=== PATIENT | female | born 1945 | race African-American/Black ===

== ENCOUNTER 2018-08-24 10:00 | Inpatient (IN) ==
--- NOTE | 2018-08-24 11:29 | Diag Imaging Result Doc PS360 ---
EXAM: CT HEAD W/O CONTRAST 08/24/2018 HISTORY: CVA rule out TECHNIQUE: This exam was performed using automated exposure control, adjustment of mA or kV according to patient size, and/or use of iterative reconstruction technique. COMMENT: There are patchy lucencies in the subcortical and periventricular white matter of both hemispheres. There is no evidence of mass effect, bleed, or abnormal extra-axial fluid collection. The visualized paranasal sinuses are clear. The calvarium is intact. IMPRESSION: Chronic ischemic microvascular white matter disease. No evidence of acute disease. Electronically signed by Alan Eastman 08/24/2018 11:27 AM
--- NOTE | 2018-08-24 11:40 | Diag Imaging Result Doc PS360 ---
EXAM: CHEST-PORTABLE 08/24/2018 HISTORY: CVA workup TECHNIQUE: AP upright chest at 1125 COMMENT: There is increased platelike atelectasis in the lingula compared to 08/17/2014. The right lung is essentially clear. There continues to be cardiomegaly. IMPRESSION: Lingular atelectasis. Electronically signed by Alan Eastman 08/24/2018 11:37 AM
[2018-08-24 11:49] LABS: BASO# 0.01 X1000 (0.0-0.2); BASO% 0.3 % (0.0-0.8); EOS# 0.13 X1000 (0.0-0.7); EOS% 3.3 % (0.0-10.0); HEMOGLOBIN 13.4 g/dL (12.0-16.0); LYMPH# 0.95 X1000 (1.2-3.4); LYMPH% 23.8 % (20.5-51.1); MCHC 31.2 g/dL (33-37); MCV 96.4 FL (81-99); MONO# 0.24 X1000 (0.11-0.59); MPV 11.5 FL (7.4-10.4); NEUT# 2.67 X1000 (1.4-6.5); NEUT% 66.6 % (42.2-75.2); PLT 99 X1000 (130-400); RBC 4.46 XMIL (4.2-5.4); RDW 14.5 % (11.5-14.5)
[2018-08-24 11:54] LABS: INR 0.94; PROTIME 13.4 Seconds (11.0-16.0)
[2018-08-24 12:02] LABS: URINE SOURCE CATH
[2018-08-24 12:06] LABS: BILIRUBIN URINE NEGATIVE (NEGATIVE); BLOOD URINE MODERATE (NEGATIVE); COLOR YELLOW; GLUCOSE URINE NEGATIVE (NEGATIVE); KETONE URINE NEGATIVE (NEGATIVE); LEUKOCYTES URINE MODERATE (NEGATIVE); NITRITE URINE POSITIVE (NEGATIVE); PROTEIN URINE NEGATIVE (NEGATIVE); SP GRAVITY URINE 1.008; TURBIDITY URINE HAZY (CLEAR); UR EPITHELIAL CELLS >10 /HPF (<10); URINE BACTERIA 4+ /HPF; URINE RBC <10 /HPF (<10); UROBILINOGEN URINE NORMAL (NORMAL)
[2018-08-24 12:09] LABS: ALB/GLOB RATIO 1.2; ALBUMIN 3.5 g/dL (3.5-5.0); CALCIUM 10.1 mg/dL (8.8-10.2); CREATININE 1.1 mg/dL (0.5-0.9); POTASSIUM 3.8 mmol/L (3.5-5.1); TOTAL BILIRUBIN 1.26 mg/dL (0.20-1.00); TOTAL PROTEIN 6.4 g/dL (6.3-8.3)
[2018-08-24] MEDS ORDERED: ROCEPHIN 1 GM in NS 50 ML IV ONE (13:03)
--- NOTE | 2018-08-24 13:41 | PROVIDER DOCUMENTATION ---
This chart was entered by Vani Hooper Scribe, acting as scribe for Candie Lainez MD. HPI-Neurological Disorder - General Chief Complaint: General Adult Stated Complaint: tingling Time Seen by Provider: 08/24/18 10:21 Source: patient, family Allergies/Adverse Reactions: Patient Allergies Allergy/AdvReac Type Severity Reaction Status Date / Time Penicillins Allergy HIVES Verified 08/24/18 10:26 diltiazem HCl * AdvReac RASH Verified 08/24/18 10:26 [From Cardizem] ibuprofen AdvReac ABDOMINAL Verified 08/24/18 10:26 PAIN Home Medications: Home Medication List Medication Instructions Recorded Confirmed Last Taken Type Aspirin 81 mg PO PRN PRN 08/14/14 08/14/14 1 Day Ago History ~02/16/16 Hydrocodone/Acetaminophen [[place] 1 each PO Q4H PRN PRN 08/14/14 08/14/14 08/14/14 13:00 History 10-325 Tablet] Irbesartan 150 mg PO DAILY 08/14/14 08/14/14 02/17/16 History Liothyronine [Cytomel] 50 microgm PO BID 08/14/14 08/14/14 Unknown History Metformin [Glucophage] 500 mg PO BID 08/14/14 08/14/14 02/17/16 History Prednisone 20 mg PO DAILY 08/14/14 08/14/14 1 Day Ago History ~02/16/16 Irbesartan/Hydrochlorothiazide 1 each PO DAILY #30 tablet 02/17/16 Unknown Rx [Irbesartan-Hctz 300-12.5 mg Tb] Sulfamethoxazole/Trimethoprim 1 each PO BID #14 tablet 02/17/16 Unknown Rx [Bactrim Ds Tablet] Nitrofurantoin Monohyd/M-Cryst 100 mg PO BID #20 capsule 03/19/16 Unknown Rx [Macrobid 100 mg Capsule] - History of Present Illness-Neuro Nature of Presenting Problem: 73yof with hx of COPD and diabetes c/o numbness and tingling in lips and tongue that occurred this morning. She reports that it effected both her lips and the R -side of her tongue. She reports this lasted for 20-25 minutes this morning. She reports she has not had an incidence similar to this previously. She denies hx of CVA. She reports her PCP is at [facility]. The patient's daughter reports that she witnessed the patient had "lip drooping" on the R side. Her daughter reports that the patient raised her arms, followed commands, and was oriented x3. She reports that the patient has seemed "confused and disoriented" in the past few days. The patient denied any weakness in any other extremities. The patient's daughter is at bedside. Severity: reports: mild, moderate Onset/Duration: reports: this morning Timing: reports: gone now, intermittent (incident lasted 20-25 minutes) Context: reports: other (numbness and tingling in lips and tongue) Any recent trauma/injury?: reports: none New weakness or altered sensation location:: reports: none Cognitive Baseline: alert, oriented x3 Associated Symptoms: reports: other (numbness and tingling in lips and tongue). denies: fever/chills Similar Symptoms Previously?: No Recently seen or treated by another doctor?: No Review of Systems - Adult - REVIEW OF SYSTEMS - ADULT Constitutional: denies: chills, fever Eyes: denies: discharge, dry eyes Ears, Nose, Mouth & Throat: denies: ear discharge, ear pain Cardiovascular: denies: chest pain, palpitations Respiratory: denies: cough, shortness of breath Gastrointestinal: denies: abdominal pain, diarrhea, nausea, vomiting Genitourinary: denies: dysuria, hematuria Musculoskeletal: denies: back pain, muscle aches, muscle weakness Integumentary: reports: no symptoms reported Neurological: reports: other (numbness/tingling of lips and tongue). denies: dizziness/vertigo, headache/migraines Psychiatric: reports: no symptoms reported Endocrine: reports: no symptoms reported Hematologic/Lymphatic: reports: no symptoms reported Allergic/Immunologic: reports: no symptoms reported All Other Systems: Reviewed and Negative Past History - Adult - PAST MEDICAL HISTORY-ADULT Review of Records: reports: Old Records Reviewed, Nursing Assessment Review, Medications Reviewed Major Childhood Illnesses: reports: denies history Cardiovascular: reports: HTN, other (Enlarged) Respiratory: reports: COPD Gastrointestinal: reports: denies history Obstetrical/Gynecological: reports: denies history Genitourinary: reports: kidney stones Musculoskeletal: reports: denies history Neurological: reports: denies history Endocrine/Immune: reports: anemia, thyroid disorder, other (Sickle Cell trait) Other Conditions: reports: denies history - PRIOR SURGERIES/PROCEDURES Surgical/Procedure History: reports: BTL, , orthopedic (extremity) - IMMUNIZATION STATUS Childhood Immunizations: See Nurse Assessment Flu Vaccine: See Nurse Assessment - FAMILY HISTORY Family History: reviewed, not pertinent - SOCIAL HISTORY Smoking: non-smoker Substance Use: denies Living Situation: family Physical Exam- Neurological - Physical Exam-Neuro Initial Vital Signs Reviewed: Yes General Appearance: alert, no apparent distress Eye Exam: bilateral eye: normal inspection, PERRL, EOMI Head Injury: no evidence of injury. 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 Exam: normal hearing, normal speech, PERRL Motor/Sensory: no motor deficit, no sensory deficit Neurologic: grossly normal, no motor/sensory deficits Integumentary: normal color, warm/dry Psych/Mental Status: normal mood/affect, normal thought content, normal thought process, oriented x 3 - Glascow Coma Scale Best Eye Response: (4) open spontaneously Best Verbal Response: (5) oriented Best Motor Response: (6) obeys commands Total Glascow Score: 15 Progress - PLAN OF CARE/RESULTS Progress/Plan/Lab Results: Vital Signs - 8 hr 08/24/18 10:07 08/24/18 10:10 08/24/18 10:20 Pulse Rate 84 75 111 H Respiratory Rate 14 12 Blood Pressure 151/101 O2 Sat by Pulse Oximetry 91 L 98 99 08/24/18 10:22 08/24/18 10:30 08/24/18 10:33 Pulse Rate 78 75 83 Respiratory Rate 14 Blood Pressure 147/93 136/90 O2 Sat by Pulse Oximetry 98 94 L 87 L 08/24/18 10:40 08/24/18 10:50 08/24/18 11:00 Pulse Rate 98 H 77 82 Respiratory Rate 17 22 Blood Pressure O2 Sat by Pulse Oximetry 93 L 93 L 94 L 08/24/18 11:31 08/24/18 11:40 08/24/18 11:50 Pulse Rate 79 86 82 Respiratory Rate 24 15 25 H Blood Pressure O2 Sat by Pulse Oximetry 90 L 95 92 L 08/24/18 12:00 08/24/18 12:10 08/24/18 12:20 Pulse Rate 82 76 77 Respiratory Rate 16 24 24 Blood Pressure O2 Sat by Pulse Oximetry 91 L 88 L 08/24/18 12:30 Pulse Rate 81 Respiratory Rate 18 Blood Pressure O2 Sat by Pulse Oximetry 91 L Laboratory Results - last 24 hr 08/24/18 08/24/18 08/24/18 11:04 11:04 11:04 WBC 4.00 L RBC 4.46 Hgb 13.4 Hct 43.0 MCV 96.4 MCH 30.0 MCHC 31.2 L RDW Std Deviation 14.5 Plt Count 99 L MPV 11.5 H Immature Gran % (Auto) 0.0 Neut % (Auto) 66.6 Lymph % (Auto) 23.8 [place] % (Auto) 6.0 Eos % (Auto) 3.3 Baso % (Auto) 0.3 Immature Gran # (Auto) 0.00 Neut # (Auto) 2.67 Lymph # (Auto) 0.95 L [place] # (Auto) 0.24 Eos # (Auto) 0.13 Baso # (Auto) 0.01 PT 13.4 INR 0.94 Sodium 141 Potassium 3.8 Chloride 105 Carbon Dioxide 24 L Anion Gap 12 BUN 30 H Creatinine 1.1 H Estimated GFR/1.73 m2 59 BUN/Creatinine Ratio 27 Glucose 167 H Calculated Osmolality 291 Calcium 10.1 Total Bilirubin 1.26 H AST 10 ALT 10 Alkaline Phosphatase 110 H Troponin T Total Protein 6.4 Albumin 3.5 Globulin 2.9 Albumin/Globulin Ratio 1.2 Urine Source Urine Color Urine Turbidity Urine pH Ur Specific Goehner Urine Protein Ur Glucose (Stick) Ur Ketones (Stick) Urine Blood Urine Nitrite Urine Bilirubin Urobilinogen Dipstick Urine Leukocytes Urine WBC (Auto) Urine RBC (Auto) U Epithel Cells (Auto) Urine Bacteria (Auto) 08/24/18 08/24/18 11:04 11:49 WBC RBC Hgb Hct MCV MCH MCHC RDW Std Deviation Plt Count MPV Immature Gran % (Auto) Neut % (Auto) Lymph % (Auto) [place] % (Auto) Eos % (Auto) Baso % (Auto) Immature Gran # (Auto) Neut # (Auto) Lymph # (Auto) Pacific # (Auto) Eos # (Auto) Baso # (Auto) PT INR Sodium Potassium Chloride Carbon Dioxide Anion Gap BUN Creatinine Estimated GFR/1.73 m2 BUN/Creatinine Ratio Glucose Calculated Osmolality Calcium Total Bilirubin AST ALT Alkaline Phosphatase Troponin T < 0.010 Total Protein Albumin Globulin Albumin/Globulin Ratio Urine Source CATH Urine Color YELLOW Urine Turbidity HAZY Urine pH 5.0 Ur Specific Goehner 1.008 Urine Protein NEGATIVE Ur Glucose (Stick) NEGATIVE Ur Ketones (Stick) NEGATIVE Urine Blood MODERATE A Urine Nitrite POSITIVE A Urine Bilirubin NEGATIVE Urobilinogen Dipstick NORMAL Urine Leukocytes MODERATE A Urine WBC (Auto) 10-20 A Urine RBC (Auto) <10 U Epithel Cells (Auto) >10 A Urine Bacteria (Auto) 4+ Orders Category Date Time Status Straight Catheterization ORDERED Care 08/24/18 11:39 Active CHEST-PORTABLE [RAD] Stat Exams 08/24/18 10:[address] HEAD W/O CONTRAST [CT] Stat Exams 08/24/18 10:47 Completed CBC WITH ELECTRONIC DIFF [HEME] Stat Lab 08/24/18 11:04 Completed COMPREHENSIVE METABOLIC PANEL [CHEM] Stat Lab 08/24/18 11:04 Completed PROTIME WITH INR [COAG] Stat Lab 08/24/18 11:04 Completed TROPONIN T Stat Lab 08/24/18 11:04 Completed URINALYSIS W/POSS RFLX CULT [URINALYSIS] Stat Lab 08/24/18 11:49 Completed URINE CULTURE [RM] Routine Lab 08/24/18 12:06 Received CefTRIAXONE [Rocephin] 1 gm Med 08/24/18 13:03 Active 0.9% Sodium Chloride Inj [Ns] 50 ml IV NOW Patient with UTI but normal mental status on exam. Daughter states that she had some facial drooping and all neuro symptoms have resolved, however given UTI and reports of possible TIA like symptoms will admit to OBS. Spoke to Alexis ARAUJO who accepted patient for admission to Dr Vincent. Stable for floor. Result Diagrams: 08/24/18 11:04 08/24/18 11:04 - EKG 1 Time of EKG reading by physician:: 10:16 EKG Read and Signed by:: Candie Lainez EKG Interpretation (*Must complete 3 of following elements*): Abnormal Rate: 76 Rhythm: Normal sinus rhythm Point [place]: normal QRS: LVH ST Wave: non-specific ST changes Comments: Possible Left atrial enlargement, Inferior infarct - XRAY 1 XRAY Study: Chest Impression: Abnormal (COMMENT: There is increased platelike atelectasis in the lingula compared to 08/17/2014. The right lung is essentially clear. There continues to be cardiomegaly. IMPRESSION: Lingular atelectasis.) - CT/MRI 1 CT Study: Head Impression: Abnormal (COMMENT: There are patchy lucencies in the subcortical and periventricular white matter of both hemispheres. There is no evidence of mass effect, bleed, or abnormal extra-axial fluid collection. The visualized paranasal sinuses are clear. The calvarium is intact. IMPRESSION: Chronic ischemic microvascular white matter disease. No evidence of acute disease.) Departure - Departure Date of Disposition Decision: 08/24/18 Time of Disposition Decision: 13:33 DIAGNOSIS: UTI (urinary tract infection), TIA (transient ischemic attack), Confused Disposition: ADMITTED INPATIENT 09 Certified Medical Emergency: Emergent Condition: Stable Referrals and Follow-Ups: Fatuma Johnston MD [Primary Care Provider] - - Critical Care Note This patient required my direct & personal management of CC.: No Attestation - Physician/ ROXANNE Attestation Patient care was provided by Advanced Practice Provider:: No The physician spent face to face time with patient:: Yes Advanced Practice Provider documentation review:: Supervising physician onsite and consulted in the evaluation and care of this patient. The physician did have a face to face encounter with the patient. - NIH Stroke Scale NIH Type: Initial Evaluation Level of Consciousness: 0-Alert LOC Questions (ask month and age): 0-Answers Both Correctly LOC Commands (ask to open & close eyes;make a fist, let go): 0-Obeys Both Correctly Best Gaze (horizontal eye movement): 0-Normal Visual (use finger movement, counting or visual threat): 0-No Visual Loss Facial Palsy (show teeth or raise eyebrows & close eyes tght: 0-Symmetrical Movement Motor Function-left arm: 0-Normal Motor Function-right arm: 0-Normal Motor Function-left le-Normal Motor Function-right le-Normal Limb Ataxia(zpkpos-[id number], or heel to castro): 0-No Ataxia Sensory(pin prick to face,arms,trunk,legs-compare side/side): 0-No Ataxia Best Language(name item/read sentence.Ex-Down to Earth): 0-No Aphasia Dysarthria(Pt read words or say words Ex.Mama,Tip-Top,Thanks: 0-Normal Articulation Extinction and Inattention: 0-Normal NIH Total Score: 0 Modified Opheim Score Criteria: 0-no symptoms This chart was documented by the indicated scribe, (Vani Hooper, Scribe) and accurately reflects the services I performed and decisions made by me, Candie Lainez MD, as attested by the provider's signature.
[2018-08-24 14:45] LABS: FREE T4 1.18 ng/dL (0.93-1.70)
[2018-08-24 14:59] LABS: HEMOGLOBIN A1C 7.8 % (4.8-6.0)
--- NOTE | 2018-08-24 15:01 | HISTORY AND PHYSICAL ---
PRIMARY CARE PHYSICIAN: Fatuma Johnston MD CHIEF COMPLAINT: Facial numbness. HISTORY OF PRESENT ILLNESS: Ms. Camejo is a very pleasant 73-year-old female with a history of type 2 diabetes, hypertension, hyperlipidemia, and asthma, who presents with acute onset of right-sided facial numbness that began this morning. She was in the bathroom bathing, and she had acute onset of what she calls right lip and face tingling. She immediately went to go get her daughter who she lives with, and her daughter called 911. The patient reports that on her way to the ER, the symptoms resolved, and during this time, her daughter noted a very mild right-sided facial droop. At no time were there any other neuro deficits. She denies any changes in her vision, unilateral extremity weakness, confusion. She has chronic shortness of breath but denies any acute dyspnea. Denies any chest pain or nausea or vomiting. In the ER, she had a head CT done which did not show anything acute, chronic changes noted. Her lab data, for the most part, is unremarkable. Currently she has no focal deficits. She will be admitted for observation status. PAST MEDICAL HISTORY: 1. Type 2 diabetes, not requiring insulin. 2. Hypertension. 3. Hyperlipidemia. 4. Sickle cell trait. 5. Questionable congestive heart failure. 6. Morbid obesity. 7. Asthma. 8. History of DVT and PE, status post IVC filter. PAST SURGICAL HISTORY: She has had a section, tubal ligation, knee arthroplasty and hip arthroplasty. SOCIAL HISTORY: She quit smoking around 35 years ago. She is . She lives with her daughter. She denies tobacco, alcohol or drug use. FAMILY HISTORY: Noncontributory. REVIEW OF SYSTEMS: A 14-point review of systems was obtained and found to be negative with the exception of the HPI. ALLERGIES: Penicillin, Cardizem and ibuprofen. HOME MEDICATIONS: She did not bring her medication list. We will try to call her pharmacy. PHYSICAL EXAMINATION: VITAL SIGNS: Blood pressure is 117/93, heart rate is 86, O2 saturation 92% on nasal cannula, temperature not recorded. GENERAL: A morbidly obese female lying in hospital bed in no acute distress. NEUROLOGICAL: Awake, alert and oriented. Follows commands without focal deficit. HEENT: Head is atraumatic and normocephalic. Pupils are equal, round and reactive to light. Oral mucosa is moist. NECK: Trachea is midline. No JVD. CHEST: Clear to auscultation bilaterally. CARDIOVASCULAR: Regular rate and rhythm. There is a 2/6 murmur noted. GASTROINTESTINAL: Soft, nondistended and nontender. Bowel sounds are active. EXTREMITIES: Trace edema. DIAGNOSTIC DATA: Head CT with chronic changes. Chest x-ray with plate-like atelectasis and cardiomegaly. EKG is sinus rhythm with left ventricular hypertrophy. WBC is 4, hemoglobin 13.4, hematocrit 43, platelet count 99. INR is 0.94. Sodium is 141, potassium 3.8, chloride 105, CO2 is 24, anion gap is 12, BUN is 30, creatinine 1.1, glucose 167, calcium 10.1. Total bilirubin is 1.26, AST is 10, ALT is 10, alkaline phosphatase 110. Troponin negative. ProBNP is 37. Albumin 3.5. UA shows nitrite positive UTI. ASSESSMENT AND PLAN: 1. Transient ischemic attack. The patient currently has no symptoms. They have all resolved, but she has multiple risk factors for cerebrovascular disease. We will check an echocardiogram and carotid ultrasound, trend cardiac enzymes, and consider MRI in the morning. We will make sure she is on aspirin and statin. Check a lipid panel, hemoglobin A1c, and encourage lifestyle modification. 2. Chronic cough. The patient has a history of asthma and has coughing almost every day. She denies any mucopurulent sputum at present but does cough quite a bit on a daily basis. Given the atelectasis, chronic cough and LVH, we will go ahead and check a CT of the chest without contrast for better evaluation of her lungs and echocardiogram as well. There is also likely a component of obesity hypoventilation syndrome or possibly even pulmonary hypertension/diastolic dysfunction, however, will need an echocardiogram to evaluate pulmonary pressures. We will continue breathing treatments and incentive spirometry. She may need Pulmonary consultation which could possibly be done on an outpatient basis. 3. Urinary tract infection. The patient does report some dysuria, so we will start her on Rocephin. Cultures are pending. 4. Diabetes mellitus. We will add pattern sugars, sliding scale insulin and check a hemoglobin A1c. 5. Renal insufficiency. Likely chronic. We do not have a creatinine since 2016 but will continue to watch her creatinine on a daily basis and be cautious with any nephrotoxins. 6. Thrombocytopenia. Unclear as to the significance. It would appear that she has a history of thrombocytopenia going back as far as 2014. We will check iron studies and thyroid function. 7. History of DVT and PE. Aware. Kal filter is in place. 8. DVT prophylaxis with Lovenox. Further recommendations to follow. Dictated by GAYLE Parekh for Yenni Bedolla MD cc: GAYLE Parekh MD
[2018-08-24 15:04] LABS: TSH 10.3 uIUmL (0.27-4.20)
[2018-08-24 15:08] LABS: IRON SATURATION 27 %; TIBC 235 ug/dL; TOTAL IRON 64 ug/dL (49-151); UNBOUND IRON 171 ug/dL (112-346)
--- NOTE | 2018-08-24 15:23 | Diag Imaging Result Doc PS360 ---
EXAM: CT THORAX W/O CONTRAST 08/24/2018 HISTORY: chronic cough TECHNIQUE: This exam was performed using automated exposure control, adjustment of mA or kV according to patient size, and/or use of iterative reconstruction technique. COMMENT: There are no previous studies available for comparison. There is no evidence of significant adenopathy or abnormal fluid collections. There is a large cyst in the upper pole of the right kidney. There are some linear opacities in both lung bases consistent with atelectasis versus fibrosis. There is a 6 mm nodule in the right lower lobe which is not clearly calcified. This is on image 54. There is some mild bronchiectasis in the right lower lobe. There is also bronchiectasis in the medial segment of the right middle lobe. There is an ill-defined pleural based opacity present in the right upper lobe on image 36. There is a tiny nodule adjacent to the pleura in the left upper lobe on image 27. There is platelike opacity in the lingula consistent with atelectasis. There are degenerative disc changes throughout the thoracic spine. IMPRESSION: Atelectasis particularly in the lingula. Mild bronchiectasis. Nonspecific pulmonary nodules. Electronically signed by Alan Eastman 08/24/2018 3:20 PM
[2018-08-24] MEDS: HUMULIN R SUBQ SCH ×2 (16:00→23:04)
[2018-08-24] MEDS: QUESTRAN PO SCH (16:00)
[2018-08-24] MEDS: ASPIRIN PO SCH (16:30)
[2018-08-24] MEDS: LOVENOX SUBQ SCH (16:30)
[2018-08-24] MEDS ORDERED: ZOFRAN IV PRN (23:36)
[2018-08-25] MEDS: SINGULAIR PO SCH ×2 (00:17→23:40)
[2018-08-25] MEDS: NORCO-7.5 PO PRN ×3 (00:17→19:43)
[2018-08-25] MEDS: CYTOMEL PO ONE ×2 (00:18→00:25)
[2018-08-25] MEDS: CYTOMEL PO SCH ×2 (02:15→08:55)
[2018-08-25 07:36] LABS: HEMATOCRIT 39.4 % (37.0-47.0); HEMOGLOBIN 12.4 g/dL (12.0-16.0); MCH 30.7 PG (27-31); MCHC 31.5 g/dL (33-37); MCV 97.5 FL (81-99); MPV 11.7 FL (7.4-10.4); RBC 4.04 XMIL (4.2-5.4); RDW 14.3 % (11.5-14.5); WBC 3.54 X1000 (4.8-10.8)
[2018-08-25 07:43] LABS: CALCIUM 10.5 mg/dL (8.8-10.2); CREATININE 1.1 mg/dL (0.5-0.9); POTASSIUM 3.8 mmol/L (3.5-5.1)
[2018-08-25] MEDS: HUMULIN R SUBQ SCH ×4 (08:06→23:40)
[2018-08-25 08:40] LABS: FERRITIN 1809 ng/mL (13-150)
[2018-08-25] MEDS: ASPIRIN PO SCH (08:53)
[2018-08-25] MEDS: PREDNISONE PO SCH (08:53)
[2018-08-25] MEDS: QUESTRAN PO SCH ×3 (09:13→15:45)
--- NOTE | 2018-08-25 10:15 | EKG Report ---
Test Performed on : 08/24/2018 10:11:26 AM Test Reason : ED. No order in [place] Blood Pressure : / mmHG Vent. Rate : 076 BPM Atrial Rate : 076 BPM P-R Int : 164 ms QRS Dur : 084 ms QT Int : 410 ms P-R-T Axes : 037 -07 048 degrees QTc Int : 461 ms Normal sinus rhythm. Possible Left atrial enlargement Left ventricular hypertrophy Inferior infarct , age undetermined Abnormal ECG When compared with ECG of 16-AUG-2014 05:19, Inferior infarct is now present Unconfirmed Result
[2018-08-25] MEDS: LOVENOX SUBQ SCH (15:42)
[2018-08-25] MEDS: ROCEPHIN 1 GM in NS 50 ML IV SCH (15:42)
--- NOTE | 2018-08-25 16:04 | Diag Imaging Result Doc PS360 ---
EXAM: MRI BRAIN W/O CONTRAST 08/25/2018 HISTORY: stroke like symptoms TECHNIQUE: T1 sagittal, axial, T2, FLAIR, DWI axial and coronal gradient echo. COMMENT: There is considerable motion artifact. There is extensive abnormal T2 weighted signal intensity in the periventricular white matter of both hemispheres. There is no evidence of bleed or abnormal extra-axial fluid collection. There are several punctate areas of increased DWI signal intensity in the left hemisphere which may be small lacunar lesions. It is possible these are artifacts however. No larger areas of restricted diffusion are present. There is no evidence of mass. IMPRESSION: Questionable punctate areas of restricted diffusion. Otherwise no evidence of acute disease. Electronically signed by Alan Eastman 08/25/2018 4:02 PM
--- NOTE | 2018-08-25 19:10 | PROGRESS NOTE ---
DATE: 08/25/2018 SUBJECTIVE: The patient is awake and alert. She states that she feels a lot better today than she did yesterday. OBJECTIVE: Vital Signs: Temperature 98.1 degrees, blood pressure 140/93, heart rate 78, respirations 22, O2 saturation 95% on room air. General: This is an elderly female sitting in a wheelchair in no acute distress. Heart: S1, S2 normal. Regular rate and rhythm. Lungs: Clear to auscultation bilaterally. Abdomen: Positive bowel sounds. Soft, nontender, nondistended. Extremities: No edema, no cyanosis. Neuro: The patient is alert and oriented x4. No focal neurologic deficits noted. LABS: White blood cell count 3.5, hemoglobin 12, hematocrit 39, platelets 97,000, sodium 143, potassium 3.8, chloride 106, CO2 27, BUN 24, creatinine 1.1, glucose 169, calcium 10.5. ASSESSMENT AND PLAN: 1. Metabolic encephalopathy. The patient had an MRI of the brain today that revealed a possible stroke. Will continue with aspirin. Will also add Lipitor. Will await the results of the carotid duplex study. Will also consult with Neurology. 2. Urinary tract infection. The urine culture is growing 2 different organisms, will await the results. In the meantime will continue on Rocephin. 3. Thrombocytopenia. Will discontinue the Lovenox. Will also order a HIT antibody assay. Will consult with the chief nurse executive. 4. Hypothyroidism. Continue on Cytomel. 5. Diabetes mellitus type 2. Continue on sliding scale insulin. 6. Urinary retention. The patient reports that she has frequent urinary tract infections and she uses a diaper at home. Will consult with the urologist for further treatment options. 7. Disposition. The patient reports that she is wheelchair bound and is able to transfer on her own. The patient states that she utilizes home health services. cc: Yenni Bedolla MD
[2018-08-25] MEDS ORDERED: PATIENT'S OWN MED PO SCH (21:00)
[2018-08-25] MEDS ORDERED: CYTOMEL PO SCH (21:00)
[2018-08-25] MEDS: LIPITOR PO SCH (23:40)
[2018-08-26] MEDS: HUMULIN R SUBQ SCH ×4 (06:48→21:55)
[2018-08-26 06:58] LABS: HEMATOCRIT 37.9 % (37.0-47.0); HEMOGLOBIN 11.9 g/dL (12.0-16.0); MCH 30.3 PG (27-31); MCHC 31.4 g/dL (33-37); MCV 96.4 FL (81-99); MPV 11.5 FL (7.4-10.4); RBC 3.93 XMIL (4.2-5.4); RDW 14.1 % (11.5-14.5); WBC 3.51 X1000 (4.8-10.8)
[2018-08-26] MEDS: QUESTRAN PO SCH ×3 (06:59→16:55)
[2018-08-26 07:25] LABS: AGAP 10; BUN 23 mg/dL (8-22); CHLORIDE 105 mmol/L (98-107); COSMO 285; CREATININE 0.9 mg/dL (0.5-0.9); ESTIMATED GFR > 60; GLUCOSE 97 mg/dL (70-104); POTASSIUM 3.8 mmol/L (3.5-5.1); SODIUM 141 mmol/L (136-145); TCO2 26 mmol/L (25-35)
[2018-08-26] MEDS: NORCO-7.5 PO PRN ×2 (09:17→15:58)
[2018-08-26] MEDS: PREDNISONE PO SCH (09:17)
[2018-08-26] MEDS: ASPIRIN PO SCH (09:18)
[2018-08-26] MEDS: CYTOMEL PO SCH ×2 (09:20→21:54)
--- NOTE | 2018-08-26 11:14 | Carotid Study ---
DATE: 08/24/2018 PROCEDURE: Carotid duplex imaging. REFERRING PHYSICIAN: Dr. Bedolla INTERPRETING PHYSICIAN: Dr. Green TECH: Xu INDICATIONS: Stroke-like symptoms. EQUIPMENT: [employer] E9 ultrasound system with a 9LD transducer. OBSERVED DATA RIGHT LEFT Brachial Blood Pressure Carotid Pulse Bruits: Carotid/Sub DIAGRAM OF ULTRASOUND IMAGING R L RIGHT INT EXT INT EXT LEFT Jake (cm/s) Jake (cm/s) Subclavian 115/0 Subclavian 94/0 CCA Proximal 54/11 CCA Proximal 67/11 CCA Distal 46/11 CCA Distal 63/10 Bulb 42/11 Bulb 45/9 ICA Proximal 32/8 ICA Proximal 36/8 ICA Mid 37/16 ICA Mid 40/13 ICA Distal 41/10 ICA Distal 55/21 ECA 53/8 ECA 45/8 Vertebral 117/4 A Vertebral 33/11 A ICA/CCA Ratio 0.76 ICA/CCA Ratio 0.82 % Stenosis 0 to 39 % Stenosis 0 to 39 FINDINGS: A technically difficult study secondary to thick neck and the patient having coughing attacks throughout the entirety of this study, but there is minimal atherosclerosis visualized on the study without hemodynamically significant flow limiting stenosis. Both vertebral arteries are antegrade flow. PHYSICIAN INTERPRETATION: Technically difficult study but no obvious hemodynamically significant flow limiting stenosis. The patient may need to be monitored and have a repeat study in a short interval given the difficulty of this study. cc: MD Telly Marvin CRNP
--- NOTE | 2018-08-26 12:04 | HEMO/ONC CONSULTATION ---
DATE: 08/26/2018 CHIEF COMPLAINT: We are being consulted for further management and evaluation of the patient's thrombocytopenia. HISTORY OF PRESENT ILLNESS: The patient is a 73-year-old female who presented to the emergency department with acute onset of right-sided facial numbness and tingling that began on the morning of August 24. The patient's daughter states that she did have some right-sided facial droop as well. By the time that the patient got to the emergency department, symptoms had all resolved. No other focal neurological deficits were noted. The patient denied any chest pain, nausea, vomiting. PAST MEDICAL HISTORY: Type 2 diabetes mellitus, hypertension, hyperlipidemia, sickle cell trait, questionable congestive heart failure, morbid obesity, asthma, history of DVT and PE, status post IVC filter. PAST SURGICAL HISTORY: section, tubal ligation, knee arthroplasty, and hip arthroplasty. SOCIAL HISTORY: Quit smoking around 35 years ago. Denies any tobacco or illicit drug use now. FAMILY HISTORY: Noncontributory. ALLERGIES: Penicillin, Cardizem, ibuprofen. HOME MEDICATIONS: Ventolin HFA, aspirin, Celebrex, cholestyramine, Advair Diskus, Lasix, [place] 10s, irbesartan, hydrochlorothiazide, Cytomel, Glucophage, Singulair, and prednisone. REVIEW OF SYSTEMS: Negative unless mentioned in the HPI. PHYSICAL EXAMINATION: Vital Signs: Temperature of 98.6, pulse of 85, respiratory rate 18, blood pressure 130/83, saturating 93% on room air. General: Patient is awake, lying in bed. No acute distress noted. HEENT: Anicteric. Pupils PERRLA. Mucous membranes appear to be moist. Neck: Supple. Trachea midline. No JVD noted. Lymph Node Survey: No palpable lymphadenopathy. Cardiovascular: S1, S2. Regular rate and rhythm. Lungs: Bilateral breath sounds clear to auscultation. Abdomen: Soft, nontender. Bowel sounds present in all 4 quadrants. Neurologic: Alert and oriented x3. No focal deficits noted. LABORATORY DATA: White cell count is 3.51, hemoglobin 11.9, hematocrit 37.9, platelets are 104,000. Potassium 3.8, BUN 23, creatinine 0.9. RADIOLOGY RESULTS: Chest CT, atelectasis, particularly lingula, mild bronchiectasis, and some pulmonary nodules. Brain MRI, questionable punctuate areas of restricted diffusion. No other acute disease noted. ASSESSMENT AND PLAN: 1. 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 Further lab work has been ordered. Heparin-induced thrombocytopenia antibody is pending. Continue to monitor closely. Transfuse for any clinical signs of bleeding. 2. Metabolic encephalopathy: Continue recommendations per primary medical team and neurology. 3. Urinary tract infection: Continue recommendations per primary medical team. Continue Rocephin. 4. Hypothyroidism. 5. Diabetes mellitus type 2. 6. Deep venous thrombosis prophylaxis: Continue to have the patient get out of bed as much as possible. Lovenox is going to be discontinued. Dictated by GAYLE Rodriguez for Jaswinder Swan MD Patient seen and examined. Patient presented with facial droop that resolved spontaneously. At presentation she had thrombocytopenia. This is a little bit better since admission. It is not clear to me at this time if this is chronic thrombocytopenia. We will review her labs and peripheral smear. ITP is suspected. 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 Hodges with Aranesp. She has not required Aranesp in many years. She in fact has not followed up with them in a while. Jaswinder Swan M.D. cc: GAYLE Rodriguez MD [facility]
[2018-08-26] MEDS: ROCEPHIN 1 GM in NS 50 ML IV SCH (14:00)
--- NOTE | 2018-08-26 14:00 | ECHO REPORT ---
ORDER DATE: 08/24/2018 INDICATION FOR THE PROCEDURE: Stroke, history of DVT and PE. FINDINGS: 1. The right atrium appears normal in size. 2. Mild tricuspid regurgitation. RV systolic pressure of 47. 3. Normal RV size and systolic function. 4. Trace pulmonic insufficiency. 5. Normal left atrial size with a dimension of 3.8 cm. 6. No mitral valve prolapse. Mild mitral regurgitation. 7. Normal LV size, end-diastolic dimension of 4.1. Mild left ventricular hypertrophy with a posterior and interventricular septal wall thickness 1.2 cm each. Normal LV systolic function with an estimated EF of 65 to 70 percent with normal wall motion. 8. Aortic valve opens well. No evidence of stenosis or insufficiency. The aortic valve does appear sclerotic but there does not appear to be a significant degree of restriction in motion. 9. Aorta appears normal in visualized segments. 10. No pericardial effusion seen. cc: MD Telly Boswell CRNP
--- NOTE | 2018-08-26 15:54 | CONSULTATION ---
DATE OF CONSULTATION: 08/26/2018 REASON FOR CONSULTATION: Question stroke. HISTORY OF PRESENT ILLNESS: This is a 73-year-old ambidextrous black female with diabetes, hypertension, hyperlipidemia, who was admitted 2 days ago with stroke-like symptoms. History is from the patient. She reports feeling well leading up to the event. She had sudden onset of numbness involving the right side of her tongue, lips, and possibly the lower face. An asleep sensation. Daughter reported right-sided facial drooping that was mild. The patient also reports some changes of vision out of the right eye. She describes this as a hazy sense but not completely black. There were no other neurologic symptoms. No headache. No speech changes. No dizziness. No presyncopal symptoms. No focal extremity weakness or numbness. The symptoms resolved after approximately 10 or 15 minutes. She has never had episodes like this before. She denies personally history of stroke or seizure. Head CT on arrival did not show acute findings. There were typical chronic ischemic microvascular white matter changes. MRI yesterday showed questionable punctate areas of restricted diffusion within the left hemisphere. She has not had recurrence of symptoms during her stay. The patient is being treated for E. coli UTI. She is also being worked up for thrombocytopenia. PAST MEDICAL HISTORY: Hypertension, hyperlipidemia, diabetes, reports congestive heart failure, obesity, asthma, sickle cell trait, history of DVT and PE status post IVC filter. SOCIAL HISTORY: She is a former smoker, quit about 35 years ago. She denies alcohol and illicits. She is and her daughter lives with her. She is a retired teacher. FAMILY HISTORY: No strokes or seizures. ALLERGIES: Listed to ibuprofen, diltiazem, and penicillin. HOME MEDICATIONS: The patient reports that she rarely takes an aspirin as needed. CURRENT MEDICATIONS: Include aspirin 325 mg daily, Lipitor 40 mg daily, ceftriaxone for UTI, insulin. REVIEW OF SYSTEMS: A balance of 12 was conducted and is otherwise negative except that detailed in the HPI. PHYSICAL EXAMINATION: Vital signs: Afebrile, blood pressure 151/101 admission, current 135/76, pulse 60s-80s, respirations 18, 93% on room air. Ms. Camejo is sitting up in bed, awake, alert, no acute distress. She is oriented. She is cooperative and attentive, follows simple and complex commands. Left and right digit distinction preserved. No dysarthria. No language disturbance. Pupils equal, round, and reactive. Gaze conjugate. Extraocular movements are full. Visual oleary intact to direct confrontation on all testing. She can hear. Face symmetric with equal activation. Facial sensation reported intact. Tongue is midline. Palate elevates symmetrically. Shoulder shrug is full. Motor exam: There is subtle pronation of the right arm as they are extended. Tone is equal in the limbs. Strength is preserved and symmetric in the arms and legs. She reports preserved sensation that is symmetric in the arms and legs. Rapid alternating movements and [id number] intact. Reflexes are diminished diffusely, symmetric 1+ at the biceps bilaterally. She deferred testing of the knees. No clonus. Plantar response is silent. I did not test her gait. DIAGNOSTICS: White count 3.5, platelets 104,000 and trending up. Sodium normal, BUN 23, creatinine 0.9, blood sugar is 97 to mid 200s, A1c 7.8. Triglycerides 183, cholesterol 133, LDL 72, HDL 44. Head CT showed chronic changes, no acute findings. MRI of the brain was personally reviewed showing questionable punctate areas of restricted diffusion within the left hemisphere. There is also extensive T2 signal intensity in the periventricular white matter bilaterally. Carotid Doppler 0-39% bilaterally. Echocardiogram without mention of obvious thrombus. ASSESSMENT AND PLAN: Transient right-sided facial numbness and potentially a field cut lasting approximately 10-15 minutes with complete resolution. I suspect the very subtle punctate areas of restricted diffusion seen on imaging are real and indicative of stroke as they do correlate with symptoms. I agree with the stroke workup that has been done. She reports that she does not take aspirin regularly and only takes it rarely; therefore, I would recommend just a low-dose aspirin for her as long there are no contraindications. Aggressive blood sugar management. Agree with statin therapy. Continue telemetry monitoring. Thank you for the consultation. cc: Cass Noguera MD [facility]
[2018-08-26] MEDS: FOLIC ACID PO SCH (16:04)
[2018-08-26] MEDS: PRIMAXIN 500 MG in NS 100 ML IV SCH (16:05)
--- NOTE | 2018-08-26 16:10 | PROGRESS NOTE ---
DATE: 08/26/2018 SUBJECTIVE: The patient resting in bed. OBJECTIVE: Vital signs: Temperature 98.7 degrees, pulse 83, respirations 16, blood pressure is 134/76, oxygen saturation is 93%. HEENT: Atraumatic, normocephalic. Cardiovascular system: S1, S2. Respiratory system: Has evidence of good air entry bilaterally. Abdomen: Soft, nontender. No masses felt. Extremities: No evidence of edema. Central nervous system: No obvious focal deficits noted. LABORATORY DATA: WBC is 3.5, hematocrit is 37.9 with a platelet count of 104. Sodium is 141, potassium 3.8, chloride is 105, bicarbonate 26,creatinine 0.9. ASSESSMENT: 1. Possible cerebrovascular accident (CVA). Continue aspirin as well as statin. Recommend PT. Neurology consulted. 2. Urinary tract infection. Adjust antibiotics based on culture and sensitivity report. 3. Thrombocytopenia. Lovenox discontinued. HIT antibody assay ordered. 4. Hypothyroidism. Continue Cytomel. 5. Diabetes mellitus. Continue blood sugar monitoring as well as sliding scale insulin. DISPOSITION: Consult Medical Voucher Clerk for rehabilitation placement. cc: Tonio Terry MD MTDD
[2018-08-26] MEDS: LIPITOR PO SCH (21:54)
[2018-08-26] MEDS: SINGULAIR PO SCH (21:55)
--- NOTE | 2018-08-26 22:09 | CONSULTATION ---
DATE OF CONSULTATION: 08/26/2018 CHIEF COMPLAINT: Urinary frequency and recently diagnosed urinary tract infection. HISTORY OF PRESENT ILLNESS: Ms. Camejo is a 73-year-old female with type 2 diabetes, hypertension, hyperlipidemia, asthma, rheumatoid arthritis and osteoarthritis who initially presented to the emergency room on 08/24/2018 with right-sided facial numbness and tingling with concern for stroke versus TIA. The patient had a CT of the head, which was negative, and her neurologic deficits seemed to improve. The patient was admitted to the hospital for monitoring, and urology was consulted for further recommendations regarding urinary retention and frequency. In talking to the patient, she describes a long history of urinary incontinence starting approximately 20+ years ago. 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 This has progressively worsened, and now she wears multiple diapers a day. She says her most prominent symptom is urinary frequency, stating that she needs to go to the bathroom and just goes into her diaper. The patient states that she has no warning that she needs to go to the bathroom. She states she has a long history of urinary tract infections and has a positive urine culture on admission to the hospital, growing ESBL E coli. The patient denies any hematuria or dysuria. She denies any leakage with cough or sneeze. Denies any procedures on her bladder or urethra previously. Denies any vaginal bulges or perineal pain. PAST MEDICAL HISTORY: 1. Type 2 diabetes. 2. Hypertension. 3. Hyperlipidemia. 4. Sickle cell trait. 5. Morbid obesity. 6. Asthma. 7. History of DVT and pulmonary embolism with an IVC filter. 8. Rheumatoid arthritis. 9. Osteoarthritis. PAST SURGICAL HISTORY: 1. section. 2. Tubal ligation. 3. Knee arthroplasty and hip arthroplasty. ALLERGIES: 1. Penicillin. 2. Ibuprofen. 3. Diltiazem. FAMILY HISTORY: Denies family history of malignancy. SOCIAL HISTORY: Quit smoking approximately 35 years ago. She lives with her daughter. Denies tobacco, alcohol, or illicit drug use. MEDICATION: 1. Ventolin. 2. Aspirin. 3. Celebrex. 4. Cholestyramine. 5. Advair. 6. Lasix. 7. [place]. 8. Irbesartan. 9. Hydrochlorothiazide. 10. Cytomel. 11. Glucophage. 12. Singulair. 13. Prednisone. REVIEW OF SYSTEMS: Twelve-point review of systems performed. All pertinent positives and negatives in HPI. PHYSICAL EXAMINATION: Vital Signs: Temperature 98.7 degrees, heart rate 85, blood pressure 140/85, oxygen saturation 93% on room air. General: No acute distress. Resting comfortably in bed, alert and oriented x3. HEENT: Normocephalic, atraumatic. Pupils equal, round and reactive to light. Normal mucosa with good dentition. Neck: Trachea midline without obvious deformity. Respiratory: Good respiratory effort without audible wheezing or rales. Cardiovascular: Lower extremity edema, 1+ pulses bilaterally. Abdomen: Soft, nontender, nondistended. No palpable masses or hepatosplenomegaly. Obesity present. Genitourinary: No suprapubic tenderness. No CVA tenderness. Musculoskeletal: Lower extremity edema. Able to move all extremities. Skin: No obvious skin lesions or rashes. Neurologic: Gross motor and sensory intact. No obvious neurologic deficits. LABORATORY DATA: White blood cell count 3.5, hemoglobin 11.9, hematocrit 37.9, platelets 104,000. Sodium 140, potassium 3.8, chloride 105, bicarb 26, BUN 23, creatinine 0.6, glucose 292. MICROBIOLOGY: Urine culture 08/24/2018 growing ESBL E coli sensitive to amikacin, imipenem, Bactrim and Macrobid. ASSESSMENT AND PLAN: Ms. Camejo is a 73-year-old with type 2 diabetes, hypertension, hyperlipidemia, asthma, rheumatoid arthritis, osteoarthritis, morbid obesity who presents in consultation regarding urinary frequency and incontinence. Hearing the patient talk, she seems to have had a long history of urinary incontinence occurring more than 20 years ago. She states that she was watching the television recently and told her that there was a medication that can help with incontinence, and she asked for treatment options. In talking with patient, it does not seem like she is has ever taken any medications for her bladder previously. She has previously been told that she holds onto a lot of urine, which could be leading to urinary tract infection. Overall she seems to be improving, but does have some pancytopenia with low white blood cell count and thrombocytopenia. The patient has been evaluated by Hematology/Oncology. Recommend continued IV antibiotics and tailor to her culture data. The patient does have extended spectrum beta- lactamase on her culture. Recommend obtaining renal ultrasound to assess for kidney stones and hydronephrosis in light of her urinary tract infection. If has low post void residual, would consider anticholinergics. We will continue to monitor. Please call with questions or concerns. cc: Vic Renee MD MTDD
[2018-08-27] MEDS: PRIMAXIN 500 MG in NS 100 ML IV SCH ×3 (01:36→18:05)
[2018-08-27] MEDS: HUMULIN R SUBQ SCH ×4 (06:35→23:59)
[2018-08-27 06:44] LABS: AGAP 10; BUN 23 mg/dL (8-22); CALCIUM 10.8 mg/dL (8.8-10.2); CHLORIDE 106 mmol/L (98-107); COSMO 286; CREATININE 0.8 mg/dL (0.5-0.9); ESTIMATED GFR > 60; GLUCOSE 82 mg/dL (70-104); POTASSIUM 4.1 mmol/L (3.5-5.1); SODIUM 142 mmol/L (136-145); TCO2 26 mmol/L (25-35)
[2018-08-27 06:54] LABS: HEMATOCRIT 37.3 % (37.0-47.0); HEMOGLOBIN 11.9 g/dL (12.0-16.0); MCH 30.7 PG (27-31); MCHC 31.9 g/dL (33-37); MCV 96.1 FL (81-99); MPV 11.2 FL (7.4-10.4); RBC 3.88 XMIL (4.2-5.4); WBC 4.1 X1000 (4.8-10.8)
--- NOTE | 2018-08-27 07:49 | PROGRESS NOTE ---
DATE: 08/27/2018 SUBJECTIVE: No acute events overnight. The patient is resting comfortably in bed. Alert and orient x3. She remains afebrile with stable vital signs. Bladder scan performed yesterday which showed approximately 85 mL in her bladder. The patient denies any issues with urination. No dysuria, hematuria, stable urgency and frequency. She has been voiding into her diaper. The patient was transitioned to imipenem yesterday relating to her positive urine culture with ESBL E. coli. OBJECTIVE: Vital Signs: Temperature 98.2, heart rate 69, blood pressure 150/90, oxygen saturation 95% on room air. General: No acute distress. Resting comfortably in bed. Alert and oriented x3. Respiratory: Good respiratory effort without audible wheezing or rales. Abdomen: Soft, nontender, nondistended. : No suprapubic tenderness. No CVA tenderness. Musculoskeletal: Moving all extremities, though they were slightly limited due to her arthritis. Labs: White blood cell count 4.1, hemoglobin 11.9, hematocrit 37.3, and platelets 96,000. Sodium 142, potassium 4.1, chloride 106, bicarb 26, BUN 23, creatinine 0.8, glucose 92. ASSESSMENT AND PLAN: Ms. Camejo is a 73-year-old, -[place] female with type 2 diabetes, hypertension, hyperlipidemia, asthma, rheumatoid arthritis, osteoarthritis, sickle cell trait, and morbid obesity who presented as a consult regarding urinary frequency and urgency. Overall, it sounds like the patient has been doing well since admission and has dealt with her urgency and frequency for a long time now. She was diagnosed with a urinary tract infection but denies prior urinary tract infections. Due to her extended-spectrum B-lactamase, I recommended obtaining a renal ultrasound to ensure she has no hydronephrosis or renal stones. The patient currently denies any costovertebral tenderness or suprapubic tenderness. If imaging is negative, I would recommend trying her on trospium to help with her frequency of urination. I told her that this is a quaternary molecule and has less likelihood to cause confusion and falls in the elderly. She still may be at risk for dry mouth and constipation. Currently, the patient deals with significant diarrhea. I told her that this can take many weeks to reach full effect and I encouraged her to continue to take it until she is seen back in the office for followup. If ultrasound is positive, would recommend management of those findings. However, if she continues to do well, could be managed outpatient for her frequency of urination. I told her also that urinary tract infections can lead to worsening of frequency of urination. However, it sounds like her symptoms have been relatively stable and longstanding. We will continue to monitor. Please call with questions or concerns. cc: Vic Renee MD MTDD
[2018-08-27] MEDS: PREDNISONE PO SCH (08:07)
[2018-08-27] MEDS: ASPIRIN PO SCH (08:07)
[2018-08-27] MEDS: FOLIC ACID PO SCH (08:08)
[2018-08-27] MEDS: CYTOMEL PO SCH ×2 (08:09→21:17)
[2018-08-27] MEDS: QUESTRAN PO SCH ×3 (08:10→18:07)
[2018-08-27] MEDS: NORCO-7.5 PO PRN ×2 (08:17→14:59)
--- NOTE | 2018-08-27 08:48 | HEMO/ONC PROGRESS NOTE ---
DATE: 08/27/2018 SUBJECTIVE: The patient continues to feel well at this time. The patient denies any complaints at this time. OBJECTIVE: Vital Signs: Temperature 98.2 degrees, heart rate 69, respiratory rate 18, blood pressure 171/90, sat 94% on room air. General: The patient is awake, lying in bed. No acute distress noted. HEENT: Anicteric. Pupils PERRLA. Mucous membranes moist. Cardiovascular: S1, S2. Regular rate and rhythm. Chest: Bilateral breath sounds. Clear to auscultation. Abdomen: Soft, nontender. Bowel sounds are present in all 4 quadrants. Neurologic: Alert and oriented x3. No focal deficits noted. LABORATORY DATA: White blood cell count 4.1, hemoglobin 9.9, hematocrit 37.3, platelets 96,000. Potassium 4.1, BUN 23, creatinine 0.8. ASSESSMENT AND PLAN: 1. Thrombocytopenia: Lab work pending at this time. May be chronic idiopathic thrombocytopenic purpura. Continue to monitor closely. Platelet counts continue to be stable. Transfuse for any signs of bleeding or for platelets less than 20,000. 2. Urinary tract infection: Continue antibiotics as ordered per primary medical team. 3. Deep vein thrombosis prophylaxis: Continue sequential compression devices. Continue to have the patient get up as much as possible. Dictated by GAYLE Rodriguez for Jaswinder Swan MD Patient seen and examined. Platelet count is relatively stable. This may be chronic ITP. For now we will plan to follow up outpatient. We will sign off. Please call with any questions Jaswinder Swan M.D. cc: GAYLE Rodriguez MD [facility]
--- NOTE | 2018-08-27 12:38 | PROGRESS NOTE ---
DATE: 08/27/2018 SUBJECTIVE: Ms. Camejo reports no further neurologic symptom. The transient right facial symptoms and vision disturbance prompting this admission resolved in 15 minutes and have not recurred. 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 That makes her wonder if recent episode might have been a "mild attack of Armstrong's palsy." OBJECTIVE: Systolic blood pressures have been 110s to 170s. I reviewed the MRI findings. Carotid ultrasound was technically difficult but did not show definite significant stenosis bilaterally. PLAN: I would continue aspirin, continue statin, continue treating blood sugar aggressively, treat blood pressure, consider repeat carotid imaging electively. I told her that whether this was Armstrong's palsy, other viral syndrome or ischemic episode such as TIA, with her stable course and negative workup to this point, I do not have any urgent suggestion. Thanks for asking Neurology to see Ms. Camejo. cc: MD LISHA Olivares III
--- NOTE | 2018-08-27 14:22 | PROGRESS NOTE ---
DATE: 08/27/2018 SUBJECTIVE: Patient is resting in bed. Not in any obvious distress. OBJECTIVE: Vital Signs: Temperature 98.1 degrees, pulse 83, respiratory rate 16, blood pressure is 153/86, oxygen saturation is 95%. HEENT: Atraumatic and normocephalic. Cardiovascular System: S1 and S2. Respiratory System: Has evidence of good entry bilaterally. Abdomen: Soft, nontender. No masses felt. Extremities: No evidence of edema. Central Nervous System: No obvious focal deficit noted. Labs: WBCs 4.1, hematocrit is 37.3, with a platelet count of 96,000. Sodium is 142, potassium is 4.1, chloride is 107, bicarb 26, BUN is 23, creatinine 0.8. ASSESSMENT AND PLAN: 1. Possible cerebrovascular accident. Continue aspirin as well as a statin. Physical therapy recommended. Neurology is following. 2. Urinary tract infection. Continue antibiotics. 3. Thrombocytopenia. Lovenox discontinued. Heparin-induced thrombocytopenia antibody is ordered. 4. Hypothyroidism. Continue Cytomel. 5. Diabetes mellitus. Continue blood sugar monitoring as well as sliding scale insulin. 6. Deep vein thrombosis prophylaxis. Sequential compression devices. 7. Gastrointestinal prophylaxis. Proton pump inhibitor. cc: Tonio Terry MD
--- NOTE | 2018-08-27 16:27 | Diag Imaging Result Doc PS360 ---
US RENAL 2 (RETROPER) COMPLETE - 08/27/2018 INDICATION: Recurrent UTIs and BRANDON TECHNIQUE: COMPARISON: CT from 08/14/2014 FINDINGS: The exam is nondiagnostic due to the patient's large size. IMPRESSION: Nondiagnostic. Electronically signed by Al Manzo 08/27/2018 4:24 PM
[2018-08-27] MEDS ORDERED: SANCTURA PO SCH (21:00)
[2018-08-27] MEDS: LIPITOR PO SCH (21:14)
[2018-08-27] MEDS: SINGULAIR PO SCH (21:14)
[2018-08-28] MEDS: PRIMAXIN 500 MG in NS 100 ML IV SCH ×2 (01:04→09:16)
[2018-08-28] MEDS: NORCO-7.5 PO PRN ×2 (04:53→15:05)
--- NOTE | 2018-08-28 06:41 | PROGRESS NOTE ---
DATE: 08/28/2018 SUBJECTIVE: No acute events overnight. The patient denies dysuria, hematuria, urgency or frequency. The patient went for renal ultrasound yesterday, which was nondiagnostic due to her obesity and difficulty visualizing the kidney. The bladder was visualized and appeared to be slightly distended, but appropriate for hydration status. The patient is tolerating a diet, remains afebrile. OBJECTIVE: Vital Signs: Temperature 98.2, heart rate 85, blood pressure 174/106, oxygen saturation 94% on room air. General: No acute distress. Resting comfortably in bed. Alert and oriented x3. Respiratory: Good respiratory effort without audible wheezing or rales. Abdomen: Soft, nontender, nondistended. No palpable masses. : No suprapubic tenderness. No CVA tenderness. Skin: No obvious skin lesions or rashes. IMAGING: Renal ultrasound was reviewed with the patient today. Shows slightly distended bladder and minimal visualization of the kidneys due to her obesity. The patient seemed to have normal kidneys. Shows no obvious shadowing from stones. ASSESSMENT AND PLAN: Ms. Camejo is a 73-year-old with type 2 diabetes, hypertension, hyperlipidemia, asthma, rheumatoid arthritis, osteoarthritis, sickle cell trait, morbid obesity, who presented as a consult regarding urinary frequency and urgency. Overall, it sounds like her symptoms are relatively stable. I did start her on trospium yesterday and again reviewed with her the side effects including dry mouth, constipation, and risk of confusion and falls. I think trospium has less risk of this for her due to its quaternary molecular structure and less likely to cross the blood brain barrier. I told her that it can take multiple weeks for this to work. We will continue to treat her urinary tract infection with culture specific antibiotics. We will plan to see her back in the office in approximately 4 weeks to see if her frequency has improved after starting on the trospium. We will continue to monitor. Please call with questions or concerns. cc: MD LISHA Salinas
[2018-08-28] MEDS ORDERED: PROTONIX PO SCH (07:00)
--- NOTE | 2018-08-28 08:16 | HEMO/ONC PROGRESS NOTE ---
DATE: 08/28/2018 SUBJECTIVE: Patient continues to feel well at this time. No new complaints. OBJECTIVE: Vital Signs: Temperature of 97.4 degrees, heart rate 72, respiratory rate 16, blood pressure is 139/75, saturating 94% on room air. General: Patient is awake, lying in bed. No acute distress noted. HEENT: Anicteric. Mucous membranes appears to be moist. Cardiovascular: S1, S2. Regular rate and rhythm. Chest: Bilateral breath sounds clear to auscultation. Abdomen: Soft, nontender. Bowel sounds present in all 4 quadrants. Neurologic: Alert and oriented x3. No focal deficits noted. Laboratory Data: No labs. ASSESSMENT AND PLAN: 1. Thrombocytopenia: Heparin-induced thrombocytopenia antibody is negative. This could be chronic idiopathic thrombocytopenic purpura. Platelet counts continue to be stable at 105,000. Transfuse for any signs of bleeding or for platelets 20,000. 2. Urinary tract infection: Continue recommendations per primary medical team and urology. 3. Deep venous thrombosis prophylaxis: Continue sequential compression devices. Continue to get patient out of bed as much as possible. 4. Possible cerebrovascular accident: Continue recommendations per primary medical team and neurology. Dictated by GAYLE Rodriguez for Jaswinder Swan MD Patient seen and examined. As above. I will sign off at this time. Plan to follow-up agent. Please call with any questions or concerns. Jaswinder Swan M.D. cc: GAYLE Rodriguez MD [facility]
[2018-08-28 08:20] LABS: BASO# 0.01 X1000 (0.0-0.2); BASO% 0.2 % (0.0-0.8); EOS# 0.05 X1000 (0.0-0.7); EOS% 0.9 % (0.0-10.0); HEMATOCRIT 39.2 % (37.0-47.0); HEMOGLOBIN 12.4 g/dL (12.0-16.0); IMM GRAN# 0.04 X1000 (0.0-0.04); IMM GRAN% 0.7 % (0.0-0.5); LYMPH# 1.52 X1000 (1.2-3.4); LYMPH% 27.2 % (20.5-51.1); MCHC 31.6 g/dL (33-37); MCV 94.9 FL (81-99); MONO# 0.43 X1000 (0.11-0.59); MONO% 7.7 % (1.7-9.3); MPV 11.1 FL (7.4-10.4); NEUT# 3.53 X1000 (1.4-6.5); NEUT% 63.3 % (42.2-75.2); PLT 105 X1000 (130-400); RBC 4.13 XMIL (4.2-5.4); RDW 13.8 % (11.5-14.5); WBC 5.58 X1000 (4.8-10.8)
[2018-08-28] MEDS: FOLIC ACID PO SCH (09:14)
[2018-08-28] MEDS: ASPIRIN PO SCH (09:14)
[2018-08-28] MEDS: PREDNISONE PO SCH (09:14)
[2018-08-28] MEDS: CYTOMEL PO SCH (09:15)
[2018-08-28] MEDS: QUESTRAN PO SCH ×2 (09:19→15:03)
[2018-08-28] MEDS: HUMULIN R SUBQ SCH ×2 (09:20→15:07)
[2018-08-28 11:50] VITALS: BP 153/72
--- NOTE | 2018-08-28 13:55 | DISCHARGE SUMMARY ---
ADMISSION DATE: 08/28/2018 DISCHARGE DATE: PRINCIPAL DIAGNOSIS: Transient ischemic attack. SECONDARY DIAGNOSES: 1. Diabetes mellitus. 2. Thrombocytopenia. 3. Urinary tract infection. 4. Hypothyroidism. 5. Folic acid deficiency. 6. Hyperlipidemia. 7. Hypercalcemia. DISCHARGE MEDICATIONS: Include the followin. Folic Acid 1 mg p.o. daily. 2. Pantoprazole 40 mg p.o. daily. 3. Atorvastatin 40 mg once a day. 4. Aspirin 325 mg p.o. daily. 5. Cytomel 50 mcg p.o. twice a day. 6. Prednisone 10 mg p.o. daily. 7. Metformin 500 mg p.o. twice a day. 8. [place] 10/325 one every 4 hours. 9. Bactrim DS 1 p.o. twice a day for the next 7 days. PROCEDURES DONE DURING HOSPITAL STAY: 1. Head CT 08/24/2018. 2. Chest CT 08/24/2018. 3. Renal ultrasound 08/27/2018. 4. Brain MRI 08/25/2018. 5. Carotid Doppler 08/24/2018. 6. 2D echo 08/24/2018. CONSULTATIONS DURING HOSPITAL STAY: 1. Neurology consult Dr. Noguera. 2. Hematology consult Dr. Swan. 3. Urology consult Dr. Vic Renee. HOSPITAL COURSE: Ms. Mary Camejo is a 73-year-old female who presented to the hospital because of right sided facial numbness. Head CT done did not reveal any acute abnormalities. MRI of the brain showed questionable areas of restricted diffusion. Carotid Doppler study was unremarkable. 2D echo of the heart showed an ejection fraction of about 65% to 70 percent with normal LV function. The patient was seen by the Neurology team. She seemed to have done fairly well. All other events during the course of the hospital stay, her urine culture came back positive for E. coli. She will be sent home on oral Bactrim. She was also seen by the hematology team because of thrombocytopenia which was thought to be secondary to medication effect (Lovenox). During my evaluation today 08/28/2018, the patient was found to be resting in bed not in any obvious distress. PHYSICAL EXAMINATION: Vital Signs: Temperature 98.2 degrees, pulse 82, respiratory rate 18, blood pressure 153/72, and oxygen saturation is 94%. HEENT: Atraumatic and normocephalic. Cardiovascular: S1, S2. Respiratory: Evidence of good air entry bilaterally. Abdomen: Soft and nontender. No masses felt. Extremities: No evidence of significant edema. Central nervous system: No obvious focal deficit. PLAN: Discharged home today. She is to take her discharge medications as noted above. Follow up with her primary care physician. Of note, calcium level was found to be high so that will need to be followed up in the outpatient. In addition, she will need to follow up with Neurology Dr. Cass Noguera and Dr. Renee of Urology. cc: Tonio Terry MD [facility]
== END 2018-08-28 15:20 | disposition home health service (06) | DRG 69 ==
LOC: SUPCPDRO → ED 10:00 → EDIPHOLD 10:00 → SUATTDRO 14:18 → 4N 17:32
PROVIDERS: ATTEND Internal Medicine
CPT/HCPCS: 51701; 70450; 70551; 71010; 71045; 71250; 76770; 80048; 80053; 80061; 81001; 82550; 82607; 82728; 82746; 82948; 83036; 83540; 83550; 83721; 83880; 83970; 84439; 84443; 84484; 85025; 85027; 85610; 86022; 87077; 87088; 87186; 93005; 93306; 93880; 96365; 96372; 97110; 97162; 97530; 99285; A9270; J0696; J0743; J1650; J7506; J7512; P9612; XXXXX

== ENCOUNTER 2019-03-27 17:13 | Inpatient (IN) ==
--- NOTE | 2019-03-27 17:31 | PROVIDER DOCUMENTATION ---
HPI-General Adult - General Stated Complaint: GENERALIZED WEAKNESS Time Seen by Provider: 03/27/19 17:19 Source: patient Allergies/Adverse Reactions: Patient Allergies Allergy/AdvReac Type Severity Reaction Status Date / Time Penicillins Allergy HIVES Verified 01/21/19 14:54 diltiazem HCl * AdvReac RASH Verified 01/21/19 14:54 [From Cardizem] ibuprofen AdvReac ABDOMINAL Verified 01/21/19 14:54 PAIN Home Medications: Home Medication List Medication Instructions Recorded Confirmed Last Taken Type Hydrocodone/Acetaminophen [[place] 1 each PO Q4H PRN PRN 08/14/14 03/27/19 01/20/19 History 10-325 Tablet] Metformin [Glucophage] 500 mg PO BID 08/14/14 03/27/19 01/20/19 History Prednisone 20 mg PO DAILY 08/14/14 03/27/19 01/20/19 History Irbesartan/Hydrochlorothiazide 1 each PO DAILY #30 tablet 02/17/16 03/27/19 01/20/19 Rx [Irbesartan-Hctz 300-12.5 mg Tb] Albuterol Sulfate [Ventolin Hfa] 1 puff PO Q8H PRN PRN 08/24/18 03/27/19 01/20/19 History Cholestyramine (with Sugar) 4 gm PO AC 08/24/18 03/27/19 01/20/19 History [Cholestyramine Packet] Fluticasone/[place] 250/50 INH 1 puff PO BID 08/24/18 03/27/19 01/20/19 History [Advair 250/50 Diskus] Furosemide [Lasix] 40 mg PO DAILY PRN 08/24/18 03/27/19 01/20/19 History Folic Acid 1 mg PO DAILY tab 08/28/18 03/27/19 01/20/19 Rx Pantoprazole [Protonix] 40 mg PO DAILY@0700 tab 08/28/18 03/27/19 01/20/19 Rx - History of Present Illness -Gen Adult Nature of Presenting Problems: 73 YO F extensive PMH presents with c/o generalized weakness. [facility]hab[facility] for a fall. She was supposed to walk out of the rehab center and go home with her family, however she states she was too weak to do so. She has multiple complaints of having hemorrhoids, left leg pain, and SoB. She has hx of asthma/COPD and is on intermittent o2 use at home. Location of Pain/Injury: reports: none Review of Systems - Adult - REVIEW OF SYSTEMS - ADULT Constitutional: denies: chills, fever Eyes: reports: no symptoms reported Ears, Nose, Mouth & Throat: reports: no symptoms reported Cardiovascular: denies: chest pain Respiratory: reports: cough, shortness of breath Gastrointestinal: reports: no symptoms reported. denies: abdominal pain Genitourinary: reports: no symptoms reported Musculoskeletal: reports: see HPI, joint pain (knee) Integumentary: reports: no symptoms reported Neurological: reports: other (weakness, ams) Endocrine: reports: no symptoms reported Hematologic/Lymphatic: reports: no symptoms reported Past History - Adult - PAST MEDICAL HISTORY-ADULT Review of Records: reports: Old Records Reviewed, Social history reviewed & non- contributory. Major Childhood Illnesses: reports: denies history Cardiovascular: reports: arrhythmia, CHF, HTN, other (Enlarged) Respiratory: reports: asthma, COPD Gastrointestinal: reports: denies history Obstetrical/Gynecological: reports: denies history Genitourinary: reports: kidney stones Musculoskeletal: reports: arthritis (RA), fibromyalgia Neurological: reports: denies history Endocrine/Immune: reports: anemia, Diabetes, RA, thyroid disorder (hypo), other (Sickle Cell trait) Other Conditions: reports: denies history - PRIOR SURGERIES/PROCEDURES Surgical/Procedure History: reports: BTL, , orthopedic (extremity), joint replacement (TKR) - IMMUNIZATION STATUS Childhood Immunizations: See Nurse Assessment Flu Vaccine: See Nurse Assessment - FAMILY HISTORY Family History: reviewed, not pertinent - SOCIAL HISTORY Smoking: denies Substance Use: denies Physical Exam-General - CONSTITUTIONAL General Appearance: alert, no apparent distress, other (confused about some questions) - EYES Eyes: PERRL/EOMI, pink conjunctivae - HEAD, EARS, NOSE, MOUTH & THROAT HENMT: normocephalic/atraumatic, moist mucous membranes - NECK Neck: supple - RESPIRATORY Respiratory: lungs clear, normal breath sounds, no respiratory distress, other (on o2 with low o2 sats.) - CARDIOVASCULAR Cardiovascular: regular rate, rhythm, systolic murmur - GASTROINTESTINAL (ABDOMEN) Abdominal Exam: non tender, soft, other (obese) - MUSCULOSKELETAL Extremity: no calf tenderness, other (left leg pain) - SKIN Integumentary: normal color, normal turgor, warm/dry - NEUROLOGIC Neurologic: negative: facial droop - PSYCHIATRIC Psych/Mental Status: other (mildly disoriented) Progress - PLAN OF CARE/RESULTS Result Diagrams: 03/27/19 18:30 03/27/19 18:30 - REASSESSMENT Reassessment #1 Time Reassessed: 19:46 Status: unchanged (labs and CXR reviewed. will give one dose of lasix. on exam, o2 sats at 86 to 92 % on 2L o2. pt not normally on o2. will get blood gas. daughter in the room at bedside, states pt has been disoriented. will get CT brain and UA pending. plan for admission.) - EKG 1 Time of EKG reading by physician:: 18:30 EKG Read and Signed by:: Destinee Kumari Rate: 87 Rhythm: NSR [place]: normal QRS: normal TN Interval: normal ST Wave: normal Prior EKG Comparison: unchanged from prior (august 2018) - XRAY 1 XRAY Study: Chest Impression: See EMR Report (INDICATION: SOB TECHNIQUE: One view COMPARISON: 01/21/2019 FINDINGS: Inspiration is suboptimal. The central vasculature is prominent indicating pulmonary venous congestion. There are increased interstitial markings are similar to the previous study suggesting pulmonary edema. There is subsegmental atelectasis at the left midlung zone. There is no definite pleural fluid collection or pneumothorax. There is stable cardiomegaly. IMPRESSION: Pulmonary venous congestion and interstitial edema as described. Electronically signed by Miguel Hart 03/27/2019 6:00 PM) - CT/MRI 1 CT Study: Head Impression: See EMR Report (INDICATION: AMS TECHNIQUE: This exam was performed using automated exposure control, adjustment of mA or kV according to patient size, and/or use of iterative reconstruction technique. COMPARISON: 08/24/2018 FINDINGS: There is patchy low attenuation in the periventricular and subcortical white matter suggesting fairly advanced microangiopathy, stable. There is no definite acute infarct given the limited sensitivity of CT versus MRI. There is no discrete intracranial mass, mass effect, or intracranial hemorr judi. There has been interval development of bilateral mastoid air cell effusions. IMPRESSION: 1.Stable advanced chronic appearing white matter changes. No definite acute intracranial pathology. 2.Incidental bilateral mastoid air cell effusions. Electronically signed by Miguel Hart 03/27/2019 8 :25 PM) - CONSULTS/PCP/HOSPITALIST Notification #1 *Consult/PCP/Hospitalist*: Dr. Villavicencio Time Discussed: 21:16 Consult Disposition: Will see in ED, Admit Departure - Departure Date of Disposition Decision: 03/27/19 Time of Disposition Decision: 21:30 DIAGNOSIS: Hypoxia, CHF exacerbation, AMS (altered mental status) Disposition: ADMITTED INPATIENT 09 Certified Medical Emergency: Emergent Condition: Stable Referrals and Follow-Ups: Fatuma Johnston MD [Primary Care Provider] - - Critical Care Note This patient required my direct & personal management of CC.: No Attestation - Physician/ ROXANNE Attestation The physician spent face to face time with patient:: Yes Advanced Practice Provider documentation review:: Supervising physician onsite and consulted in the evaluation and care of this patient. The physician did have a face to face encounter with the patient.
--- NOTE | 2019-03-27 18:02 | Diag Imaging Result Doc PS360 ---
EXAM: CHEST-1 VIEW INDICATION: SOB TECHNIQUE: One view COMPARISON: 01/21/2019 FINDINGS: Inspiration is suboptimal. The central vasculature is prominent indicating pulmonary venous congestion. There are increased interstitial markings are similar to the previous study suggesting pulmonary edema. There is subsegmental atelectasis at the left midlung zone. There is no definite pleural fluid collection or pneumothorax. There is stable cardiomegaly. IMPRESSION: Pulmonary venous congestion and interstitial edema as described. Electronically signed by Miguel Hart 03/27/2019 6:00 PM
[2019-03-27 18:52] LABS: BASO# 0.01 X1000 (0.0-0.2); BASO% 0.3 % (0.0-0.8); EOS# 0.07 X1000 (0.0-0.7); EOS% 2.1 % (0.0-10.0); HEMATOCRIT 37.4 % (37.0-47.0); HEMOGLOBIN 11.2 g/dL (12.0-16.0); LYMPH# 0.95 X1000 (1.2-3.4); LYMPH% 29.1 % (20.5-51.1); MCH 28.4 PG (27-31); MCHC 29.9 g/dL (33-37); MCV 94.7 FL (81-99); MONO# 0.22 X1000 (0.11-0.59); MONO% 6.7 % (1.7-9.3); MPV 12.9 FL (7.4-10.4); NEUT# 2.01 X1000 (1.4-6.5); NEUT% 61.8 % (42.2-75.2); PLT 91 X1000 (130-400); RBC 3.95 XMIL (4.2-5.4); WBC 3.26 X1000 (4.8-10.8)
[2019-03-27 19:27] LABS: AGAP 10; ALKALINE PHOSPHATASE 138 U/L (32-104); BUN 20 mg/dL (8-22); CALCIUM 11.6 mg/dL (8.8-10.2); CHLORIDE 116 mmol/L (98-107); COSMO 293; ESTIMATED GFR > 60; GLUCOSE 69 mg/dL (70-104); GOT 31 U/L (10-30); GPT 12 U/L (10-36); POTASSIUM 4.8 mmol/L (3.5-5.1); SODIUM 147 mmol/L (136-145); TCO2 21 mmol/L (25-35); TOTAL BILIRUBIN 1.15 mg/dL (0.20-1.00)
[2019-03-27] MEDS ORDERED: LASIX IV ONE (19:46)
--- NOTE | 2019-03-27 20:27 | Diag Imaging Result Doc PS360 ---
EXAM: CT HEAD W/O CONTRAST INDICATION: AMS TECHNIQUE: This exam was performed using automated exposure control, adjustment of mA or kV according to patient size, and/or use of iterative reconstruction technique. COMPARISON: 08/24/2018 FINDINGS: There is patchy low attenuation in the periventricular and subcortical white matter suggesting fairly advanced microangiopathy, stable. There is no definite acute infarct given the limited sensitivity of CT versus MRI. There is no discrete intracranial mass, mass effect, or intracranial hemorrhage. There has been interval development of bilateral mastoid air cell effusions. IMPRESSION: 1.Stable advanced chronic appearing white matter changes. No definite acute intracranial pathology. 2.Incidental bilateral mastoid air cell effusions. Electronically signed by Miguel Hart 03/27/2019 8:25 PM
[2019-03-27 20:38] LABS: ALLEN TEST YES; BE -3.5 mmoll (-3.0-3.0); BLOOD TYPE ARTERIAL; HCO3-(ACT) 22.2 mmoll (20.0-26.0); METHB 0.4 % (0.0-1.5); O2(CT) 14.3 mL/dL (15.0-23.0); O2HB 94.5 % (95.0-99.0); PCO2(98.6) 41 mmHg (35-45); PO2(98.6) 71 mmHg (60-100); SAMPLE BLOOD; SAO2 96.3 % (95.0-100.0); THB 10.7 g/dL (11.5-17.4); pH(98.6) 7.34 (7.35-7.45)
[2019-03-27 20:42] LABS: MODALITY CANNULA
--- NOTE | 2019-03-27 22:40 | HISTORY AND PHYSICAL ---
PRIMARY CARE PHYSICIAN: Fatuma Johnston M.D. CHIEF COMPLAINT: Shortness of breath and weakness times the past week or so. HISTORY OF PRESENTING ILLNESS: This is a 73-year-old female with a history of hypertension, hyperlipidemia, CHF, diabetes mellitus type 2, and CVA who was just released from rehab; however, when she went home she was feeling more weak and having shortness of breath. She was unable to get out of the car, and subsequently she was brought to the emergency department. In the ED, she was evaluated. She was found to be in heart failure, and due to her overall presenting symptoms, it was thought that she would need admission for further management. At the time of my examination, patient denied any headache, fever, chills, chest pain, hemoptysis, but complained of shortness of breath and feeling weak. PAST MEDICAL HISTORY: Includes hypertension, hyperlipidemia, CHF, diabetes mellitus type 2, sickle cell trait, DVT, PE, CVA. PAST SURGICAL HISTORY: IVC filter, bilateral knee surgery, left hip surgery, hernia repair. ALLERGIES: Penicillin, Cardizem and ibuprofen. CURRENT MEDICATIONS: Include albuterol nebs q.8 hours, cholestyramine 4 g p.o. with meals, folic acid 1 mg p.o. daily, furosemide 40 mg p.o. daily, [place] 10/325 one p.o. q.6 hours, irbesartan/hydrochlorothiazide 300/12.5 one p.o. daily, metformin 500 mg p.o. b.i.d., pantoprazole 40 mg p.o. daily, prednisone 20 mg p.o. daily. SOCIAL HISTORY: She is a former smoker, history of social alcohol use. Denies any illicit drug use. FAMILY HISTORY: No history of coronary disease. REVIEW OF SYSTEMS: Fourteen point review of systems is as in HPI. Other systems negative. PHYSICAL EXAMINATION: GENERAL: Cooperative, friendly female. She is resting more comfortably now. VITAL SIGNS: Temperature 98.0 degrees, pulse 81, respirations 20, blood pressure 103/65. HEENT: Atraumatic, normocephalic. Extraocular movements intact. PERRLA. NECK: No masses. CHEST: Bibasilar rales. CARDIOVASCULAR: Regular rate and rhythm. ABDOMEN: Soft. Positive bowel sounds. Obese. EXTREMITIES: Trace edema. NEUROLOGIC: She is awake, alert, oriented x2. GENITOURINARY: No bladder distention. SKIN: Warm. LABORATORIES AND STUDIES: WBC 3.26, hemoglobin 11.2, hematocrit 37.4, platelets 91,000. Sodium 147, potassium 4.8, chloride 116, CO2 is 21, BUN is 20 creatinine is 1.0, glucose is 69. Total bilirubin is 1.15, alkaline phosphatase is 138. Chest x-ray shows pulmonary venous congestion. Head CT is advanced chronic appearing white matter changes. No acute intracranial pathology. ASSESSMENT: This is a 73-year-old female with a history of hypertension, hyperlipidemia, congestive heart failure, diabetes mellitus type 2, who just got home from rehab earlier today; however, when she was about to get out of her car, she got short of breath and was more weak than usual. She was brought to the emergency department. She was found to be in heart failure, and due to presenting symptoms, she will require admission for further management. 1. Probable congestive heart failure exacerbation, unspecified. 2. Generalized weakness. 3. Hypercalcemia. 4. Elevated liver function tests. 5. Diabetes mellitus type 2. 6. Hypertension. PLAN: 1. We will admit patient to medical floor with telemetry. 2. Continue with gentle diuresis with Lasix. 3. Consult Cardiology. 4. We will consult PT. 5. We will check a PTH level. 6. We will check an abdominal ultrasound. 7. Monitor blood glucose and put patient on sliding scale insulin regimen. 8. Monitor blood pressure. Resume antihypertensive agent. 9. Put patient on DVT prophylaxis with Lovenox. 10. We will continue to follow, reassess and make further recommendations based on the patient's clinical course. cc: Bud Villavicencio MD
[2019-03-27 23:45] LABS: CALCIUM 11.7 mg/dL (8.8-10.2); PHOSPHORUS 2.2 mg/dL (2.7-4.5)
[2019-03-28] MEDS: NORCO-10 PO PRN ×2 (02:13→20:11)
[2019-03-28] MEDS ORDERED: CALMOSEPTINE OINTMENT TOP PRN (04:24)
[2019-03-28] MEDS: PREPARATION H OINT TOP PRN (04:45)
[2019-03-28 05:19] LABS: EOS# 0.07 X1000 (0.0-0.7); EOS% 2.3 % (0.0-10.0); HEMATOCRIT 34.5 % (37.0-47.0); HEMOGLOBIN 10.2 g/dL (12.0-16.0); LYMPH# 0.97 X1000 (1.2-3.4); LYMPH% 31.5 % (20.5-51.1); MCH 28.5 PG (27-31); MCHC 29.6 g/dL (33-37); MCV 96.4 FL (81-99); MONO# 0.21 X1000 (0.11-0.59); MONO% 6.8 % (1.7-9.3); MPV 13.3 FL (7.4-10.4); NEUT# 1.83 X1000 (1.4-6.5); NEUT% 59.4 % (42.2-75.2); PLT 86 X1000 (130-400); RBC 3.58 XMIL (4.2-5.4); RDW 16.2 % (11.5-14.5); WBC 3.08 X1000 (4.8-10.8)
[2019-03-28 05:38] LABS: CALCIUM 11.5 mg/dL (8.8-10.2); CREATININE 1.1 mg/dL (0.5-0.9); POTASSIUM 4.6 mmol/L (3.5-5.1)
[2019-03-28] MEDS: PROTONIX PO SCH (06:17)
[2019-03-28] MEDS: QUESTRAN PO SCH ×3 (06:17→16:16)
[2019-03-28] MEDS: AVAPRO PO SCH (08:06)
[2019-03-28] MEDS: LASIX IV SCH ×2 (08:06→20:12)
[2019-03-28] MEDS: FOLIC ACID PO SCH (08:06)
[2019-03-28] MEDS: HYDROCHLOROTHIAZIDE PO SCH (08:06)
[2019-03-28] MEDS: PREDNISONE PO SCH (08:09)
[2019-03-28] MEDS ORDERED: DULCOLAX PR PRN (09:57)
--- NOTE | 2019-03-28 10:23 | PROGRESS NOTE ---
DATE: 03/28/[address] Fatuma De Leon. A 73-year-old female with history of hypertension, hyperlipidemia, congestive heart failure, diabetes mellitus type 2, has CVA in the past. Just released from rehab. However, she went home, was feeling more weak, having shortness of breath, unable to get out of the car. Subsequently, she was brought to the emergency department. She was evaluated and found to be in heart failure due to her overall presenting symptoms, so she is admitted to the hospital. She denied headache, fever, chest pain, hemoptysis. PAST MEDICAL HISTORY: Hypertension, hyperlipidemia, congestive heart failure, diabetes mellitus type 2, sickle cell trait, DVT, history of pulmonary embolus, CVA, she has an IVC filter, bilateral knee surgeries, left hip surgery, and hernia repair in the past. ADMISSION DIAGNOSES: 1. Probable congestive heart failure exacerbation. 2. Generalized weakness. 3. Hypercalcemia. 4. Elevated liver function tests. 5. Diabetes mellitus type 2. 6. Hypertension. PHYSICAL EXAMINATION: General: Today she is comfortable, awake. She is in the bed and breathing comfortably. Says she feels better. Vital Signs: Temp 97.5 degrees, pulse 69, respirations 18, blood pressure 123/82. HEENT: Pupils are equal and round. Lungs: Clear in all lung oleary. Cardiovascular: Regular rhythm and rate without murmur or S3. Abdomen: Soft. Skin: Warm and dry. She has chronic venous stasis dermatosis. She feels like her legs are less swollen. CT of the head without contrast: Stable advanced chronic appearing white matter changes. No definite acute intracranial pathology. Incidental bilateral mastoid air cell effusions appreciated. Chest x-ray, pulmonary venous congestion and interstitial edema. Looking back she had a carotid Doppler done in August of this year. Technically difficult study but no obvious hemodynamic significant flow limiting stenosis. She had an echocardiogram done and showed right atrium appeared normal size. Mild tricuspid regurgitation. Right systolic pressure estimated at 47 mmHg. Normal RV size and systolic function. Normal left atrial size with dimension 3.8, normal LV size, dimension 4.7, ejection fraction 65 to 71 percent. Aortic valve was appears well. No evidence of stenosis. Appears to have some sclerosis but no significant degree of restriction in motion. REVIEW OF HER ORDERS: She is getting Lasix 40 mg IV q.12, hydrochlorothiazide 12.5 mg p.o. q.a.m. She is on Avapro 300 mg a day, Protonix 40 mg a day, gets prednisone 20 mg daily. We will continue physical therapy. She apparently is already on oxygen and it appears to be congestive heart failure with normal ejection fraction. Looking at her blood pressures and afterload, they look they look excellent. cc: Marco Antonio Mendoza MD
[2019-03-28 10:50] LABS: URINE SOURCE CLEAN CATCH
[2019-03-28 11:00] LABS: BILIRUBIN URINE NEGATIVE (NEGATIVE); BLOOD URINE SMALL (NEGATIVE); COLOR YELLOW; GLUCOSE URINE NEGATIVE (NEGATIVE); KETONE URINE NEGATIVE (NEGATIVE); LEUKOCYTES URINE SMALL (NEGATIVE); NITRITE URINE NEGATIVE (NEGATIVE); PROTEIN URINE NEGATIVE (NEGATIVE); SP GRAVITY URINE 1.008; TURBIDITY URINE CLEAR (CLEAR); UROBILINOGEN URINE NORMAL (NORMAL)
[2019-03-28 11:02] LABS: UR EPITHELIAL CELLS <10 /HPF (<10); URINE BACTERIA NEGATIVE /HPF; URINE RBC <10 /HPF (<10); URINE WBC <10 /HPF (<10)
--- NOTE | 2019-03-28 12:10 | CARDIOLOGY CONSULTATION ---
DATE: 03/28/2019 REASON FOR CONSULTATION: Cardiology was consulted for heart failure. HISTORY OF PRESENT ILLNESS: A 73-year-old lady with history of hypertension, hyperlipidemia, diabetes, CVA, was at [facility]. She was noted to have a clot and subsequently had IVC filter placed and was in rehab services. She has been taking anticoagulation therapy with Eliquis twice daily. She went home, was feeling more weak and was short of breath and unable to get out of the car; was brought to the emergency room. In the emergency room, she was evaluated. Chest x-ray revealed heart failure. She was admitted, started on Lasix. Symptomatically she has improved. She also complains of having cough. She denies chest pain suggestive of angina. There are no palpitations. There is no syncope. Patient was orthopneic. She has had a CVA in the past and uses a wheelchair. She has also had bed sores on her buttocks. REVIEW OF SYSTEMS: A 14 point review of system was done.Gastrointestinal: System there is no history of nausea, vomiting, or diarrhea. There is no history of hematemesis or melena. Central nervous system: No focal weakness to suggest a new CVA or TIA. Genitourinary: There is no dysuria or hematuria. PAST MEDICAL HISTORY: 1. Hypertension. 2. Hyperlipidemia. 3. Diabetes. 4. DVT, is on anticoagulation therapy, has IVC filter placed. 5. History of CVA. 6. Sickle-cell trait. 7. Left hip surgery. 8. Bilateral knee surgery. 9. Hernia repair. 10. Has bed sores. ALLERGIES: She is allergic to penicillin, Cardizem, ibuprofen. HOME MEDICATIONS: Include cholestyramine, Lasix 40 mg a day, Fence, Eliquis, irbesartan- hydrochlorothiazide 300-12.5, metformin 500 b.i.d., Protonix 40, prednisone 20. SOCIAL HISTORY: She is a former smoker. PHYSICAL EXAMINATION: Vital signs: Blood pressure 103/65. Cardiovascular: First and second heart sounds were heard. There was no S3 gallop. Lungs: There were bibasilar bilateral inspiratory crepitations. Abdomen: Soft, nontender. There was no guarding or rigidity. Bowel sounds were heard. Central nervous system: Alert, was moving extremities. Detailed central nervous system examination not performed. There is weakness in the right upper extremity. LABORATORY EXAMINATION: Revealed sodium 146, potassium 4.6, BUN 22, creatinine 1.1. Calcium elevated at 11.5. Troponin negative. Her electrocardiogram revealed normal sinus rhythm. There were no ST-T changes to suggest ischemia. WBC 3, hemoglobin 10.2, hematocrit 34.5 platelet count of 86,000. IMAGING: CT of her head was done, shows mastoid air cell effusions, chronic changes. No obvious intracranial bleed. Chest x-ray, pulmonary venous congestion, interstitial edema. ASSESSMENT AND PLAN: Ms. Mary Camejo is a 73-year-old black lady who has history of cerebrovascular accident, deep venous thrombosis, hyperlipidemia, diabetes, hypertension. Was at [facility], subsequently sent to rehab and she had shortness of breath, was orthopneic, came to the emergency room and was admitted. The patient has diastolic heart failure. Her recent echocardiogram in August 2018 revealed ejection fraction of 65 to 70 percent, minimal valvular disease. Cardiac enzymes are negative. PLAN: 1. She is on anticoagulation therapy which is not listed as a home medication. We will call her rehab place and get the exact dosage of Eliquis she has been taking. 2. Blood pressure is under control. I have not made any changes. 3. Diastolic heart failure. She has been started on Lasix 40 mg twice daily. I have not made any changes. 4. Hypertension. Continue with her home medication of irbesartan. 5. Hyperlipidemia. She is on cholestyramine. 6. As far as the etiology of her heart failure is concerned, we will make sure there is no ischemia. I will set up to undergo a Lexiscan Cardiolite stress test on Saturday. Thank you for the consult. We will follow hospital course. cc: Edvin Victoria MD [facility]
[2019-03-28] MEDS: MIRALAX PO SCH (20:12)
[2019-03-29] MEDS: NORCO-10 PO PRN ×3 (03:11→20:09)
[2019-03-29] MEDS: QUESTRAN PO SCH ×3 (06:16→16:54)
[2019-03-29] MEDS: PROTONIX PO SCH (06:16)
--- NOTE | 2019-03-29 08:37 | PROGRESS NOTE ---
DATE: 03/29/2019 SUBJECTIVE: Ms. Camejo is breathing better, feels better but she is very weak. She has not walked much. She wants to go home so she needs to walk and be able to use her walker. She has a walker at home. She is complaining of her hemorrhoids. She is getting Preparation-H. We will add some Anusol-HC cream. OBJECTIVE: Temperature 97.7 degrees, pulse 66, respirations 18, blood pressure 124/67. Pupils are equal and round. Lungs are clear in all lung oleary. Cardiovascular Examination: Regular rhythm and rate without murmur or S3. Abdomen is soft. Skin is warm and dry. Urine output is 1800 mL. ASSESSMENT AND PLAN: 1. History of cerebrovascular accident, deep venous thrombosis, hyperlipidemia, diabetes, hypertension. Was in [facility]. Subsequently sent to rehab, and developed some shortness of breath and had some orthopnea. Came to the emergency room and was admitted. She has diastolic heart failure. Recent echocardiogram in August 2018 revealed ejection fraction of 65-70% with minimal valvular disease so put her back on her anticoagulation. She is on Eliquis. I do not see any reason not to continue to diurese. Blood pressures appear under control. She is on Lasix 40 mg twice a day. For blood pressure, she is irbesartan and making progress. 2. We need to get her up out of bed and make sure she is walking and doing okay with that. 3. Diabetes mellitus type 2. Sugar is under good control. REVIEW OF LABS: Her lab from yesterday, hematocrit 34, hemoglobin 10. Blood sugars excellent. Sodium 146, potassium 4.6, chloride 115, BUN 12, creatinine 1.1. REVIEW OF HER ORDERS: She is back on Eliquis 5 mg twice a day, Dulcolax suppositories per rectum daily p.r.n., Questran 4 g daily, folic acid 1 mg daily, Lasix 40 mg IV q.12, hydrochlorothiazide 12.5 daily, Avapro 300 mg daily, Protonix 40 mg p.o. daily, MiraLAX 17 g b.i.d., prednisone 20 mg a day. We will give her some Anusol-HC cream as well. cc: Marco Antonio Mendoza MD
[2019-03-29] MEDS ORDERED: ELIQUIS PO SCH (09:00)
[2019-03-29] MEDS: LASIX IV SCH ×2 (09:04→20:10)
[2019-03-29] MEDS: FOLIC ACID PO SCH (09:04)
[2019-03-29] MEDS: AVAPRO PO SCH (09:04)
[2019-03-29] MEDS: PREDNISONE PO SCH (09:04)
[2019-03-29] MEDS: HYDROCHLOROTHIAZIDE PO SCH (09:04)
[2019-03-29] MEDS: ANUSOL-HC CREAM PR SCH ×2 (09:05→20:25)
[2019-03-29] MEDS: MIRALAX PO SCH ×2 (09:05→20:25)
--- NOTE | 2019-03-29 09:05 | EKG Report ---
Test Performed on : 03/27/2019 6:15:30 PM Test Reason : CP Blood Pressure : / mmHG Vent. Rate : 087 BPM Atrial Rate : 087 BPM P-R Int : 160 ms QRS Dur : 082 ms QT Int : 338 ms P-R-T Axes : 037 015 041 degrees QTc Int : 406 ms Normal sinus rhythm. Possible Left atrial enlargement Possible Anterior infarct , age undetermined Abnormal ECG When compared with ECG of 24-AUG-2018 10:11, QT has shortened Unconfirmed Result
[2019-03-29] MEDS: ELIQUIS PO SCH ×2 (09:21→20:09)
--- NOTE | 2019-03-29 09:35 | Diag Imaging Result Doc PS360 ---
EXAM: US ABDOMEN-COMPLETE INDICATION: Abn LFT COMPARISON: None. FINDINGS: The gallbladder wall appears mildly thickened measuring up to 5 mm. However, no gallstones are identified and there is no pericholecystic fluid. The common bile duct is normal in diameter. Sonographic Arrieta's sign was reported to be negative. The liver echotexture is very slightly increased suggesting possible minimal hepatic steatosis. No discrete hepatic mass is identified. Portal venous flow is hepatopetal. The pancreas is largely obscured. The visualized portion is grossly unremarkable. The aorta and IVC are partially obscured. The visualized portions are unremarkable. The spleen is unremarkable. The right kidney is largely obscured as well. However, there is a simple appearing renal cysts on the right measuring up to 5.1 cm. There is a 2.3 cm simple appearing left renal cyst. The left kidney is grossly unremarkable, otherwise. IMPRESSION: 1.Slightly prominent gallbladder wall but no stones or pericholecystic fluid identified and a reported negative sonographic Arrieta sign. Please correlate clinically. 2.Questionable mild hepatic steatosis. Electronically signed by Miguel Hart 03/29/2019 9:32 AM
[2019-03-29 10:21] LABS: BASO# 0.01 X1000 (0.0-0.2); BASO% 0.3 % (0.0-0.8); EOS# 0.03 X1000 (0.0-0.7); EOS% 0.8 % (0.0-10.0); HEMATOCRIT 36.3 % (37.0-47.0); LYMPH# 1.25 X1000 (1.2-3.4); LYMPH% 34.6 % (20.5-51.1); MCH 28.7 PG (27-31); MCHC 30.3 g/dL (33-37); MCV 94.8 FL (81-99); MONO# 0.24 X1000 (0.11-0.59); MONO% 6.6 % (1.7-9.3); NEUT# 2.08 X1000 (1.4-6.5); NEUT% 57.7 % (42.2-75.2); PLT 102 X1000 (130-400); RBC 3.83 XMIL (4.2-5.4); RDW 15.8 % (11.5-14.5); WBC 3.61 X1000 (4.8-10.8)
[2019-03-29 10:37] LABS: AGAP 11; ALB/GLOB RATIO 0.9; ALKALINE PHOSPHATASE 140 U/L (32-104); BUN 23 mg/dL (8-22); CALCIUM 11.2 mg/dL (8.8-10.2); CHLORIDE 108 mmol/L (98-107); COSMO 289; ESTIMATED GFR > 60; GLUCOSE 110 mg/dL (70-104); GOT 30 U/L (10-30); GPT 14 U/L (10-36); MAGNESIUM 0.9 mg/dL (1.5-2.7); SODIUM 143 mmol/L (136-145); TCO2 24 mmol/L (25-35); TOTAL BILIRUBIN 0.97 mg/dL (0.20-1.00); TOTAL PROTEIN 6.4 g/dL (6.3-8.3)
[2019-03-29] MEDS ORDERED: MAGNESIUM SULFATE 4 GM/S.W.I. 4 GM/100 ML IVPB IV ONE (10:43)
[2019-03-30] MEDS: PROTONIX PO SCH (06:15)
[2019-03-30] MEDS: QUESTRAN PO SCH ×3 (06:15→16:29)
[2019-03-30] MEDS ORDERED: LEXISCAN ONE (08:47)
--- NOTE | 2019-03-30 09:50 | PROGRESS NOTE ---
DATE: 03/30/2019 SUBJECTIVE: Vital Signs: Temperature is 97.5 degrees, pulse 49, respirations are 18, blood pressure 128/64. HEENT: Pupils are equal and round. Lungs: Clear in all lung oleary. Cardiovascular: Regular rhythm and rate without murmur or S3. ASSESSMENT/PLAN: 1. History of cerebrovascular accident, deep venous thrombosis, hyperlipidemia, diabetes, hypertension. Went to [facility], subsequently went to rehab, developed shortness of breath and some orthopnea. Came to the emergency room, was admitted. Diastolic heart failure and recent echocardiogram in August 2018 revealed ejection fraction 65%-70%. 2. Minimal valvular disease. She seems to be doing better, breathing better. Blood pressures appear to be under fairly good control. Her labs this morning unremarkable. Creatinine 1.0. 3. Blood sugar. She has diabetes, appears under good control. 4. Her magnesium was 0.9, so we do need to supplement that. cc: Marco Antonio Mendoza MD
[2019-03-30] MEDS: ANUSOL-HC CREAM PR SCH ×4 (09:56→21:58)
[2019-03-30] MEDS: ELIQUIS PO SCH ×2 (09:56→21:32)
[2019-03-30] MEDS: HYDROCHLOROTHIAZIDE PO SCH (09:56)
[2019-03-30] MEDS: MIRALAX PO SCH ×2 (09:56→21:32)
[2019-03-30] MEDS: AVAPRO PO SCH (09:56)
[2019-03-30] MEDS: FOLIC ACID PO SCH (09:56)
[2019-03-30] MEDS: PREDNISONE PO SCH (09:56)
[2019-03-30 11:03] LABS: CALCIUM 11.9 mg/dL (8.8-10.2); MAGNESIUM 1.5 mg/dL (1.5-2.7)
[2019-03-30 11:05] LABS: CREATININE 1.1 mg/dL (0.5-0.9); POTASSIUM 4.1 mmol/L (3.5-5.1)
[2019-03-30] MEDS: LASIX IV SCH ×4 (11:21→21:57)
[2019-03-30] MEDS ORDERED: MAG-OX PO ONE (11:29)
--- NOTE | 2019-03-30 16:37 | PROGRESS NOTE ---
DATE: 03/30/2019 She is not ready to go home. She has not gotten up or walked very far at all. She needs physical therapy, she is asking about getting home physical therapy so I think we need to set up home health to continue physical therapy and make sure she can walk and transfer weight before she goes home. Her breathing is better, overall everything else is better so she has physical therapy and occupational therapy already ordered and will continue these. Will also put in for home health when she leaves. cc: Marco Antonio Mendoza MD
--- NOTE | 2019-03-30 17:31 | Diag Imaging Result Document ---
PROCEDURE NAME: MYOCARDIAL PERF SCAN, STR/REST - 03/30/2019 STUDY: Rest/stress Lexiscan myocardial perfusion study. REQUESTING PHYSICIAN: Marco Antonio Mendoza MD, hospitalist service. REASON FOR STUDY: Congestive heart failure, diastolic; coronary heart disease being evaluated. DESCRIPTION: The patient came into the nuclear laboratory, received resting injection of technetium 99 sestamibi 14.9 mCi. Multiple tomographic views of the cardiac structures were obtained at rest. Subsequently, the patient underwent a walking Lexiscan protocol, 0.4 mg of Lexiscan was infused. At peak infusion, patient was injected with technetium 99 sestamibi 46.1 mCi. Multiple tomographic views of the cardiac structures were obtained following the completion of the protocol. SUMMARY OF THE ELECTROCARDIOGRAPHIC PORTION OF THE STUDY: Resting ECG shows sinus rhythm, rate is 61 beats per minute. Resting blood pressure 115/71. Resting ECG shows low voltage. No significant STT abnormalities. During the exercise protocol, the heart rate increased to 87 beats per minute. Blood pressure went up to 124/72. ECG showed no significant abnormalities. Following completion of the test, the heart rate and blood pressure returned back to baseline. In summary, the electrocardiographic response to a rest/stress Lexiscan protocol is normal. SUMMARY OF THE MYOCARDIAL PERFUSION PORTION OF THE STUDY: Poststress tomographic views of the left ventricle showed essentially normal homogeneous distribution of radiotracer throughout the entire left ventricular myocardium. There is no evidence of any postexercise defect. The rest images showed normal perfusion. Polar plots revealed the same. There is no evidence of any inducible ischemia nor myocardial scar. Gated SPECT shows normal left ventricular systolic function, ejection fraction is estimated at 84% with normal ventricular volumes and no wall motion abnormality. The lung/heart ratio is normal. TID is normal. SUMMARY: This study shows: 1. Normal electrocardiographic response to a Lexiscan infusion protocol. 2. Normal poststress myocardial perfusion scan. There is no scintigraphic evidence of pharmacologically-induced myocardial ischemia. 3. Normal left ventricular systolic function, ejection fraction is estimated at 84% with normal ventricular volumes and no wall motion abnormalities. The study represents a low risk for ischemic events. Clinical correlation is recommended. cc: MD Edvin Neri MD
[2019-03-31] MEDS: QUESTRAN PO SCH ×3 (06:31→16:43)
[2019-03-31] MEDS: PROTONIX PO SCH (06:32)
[2019-03-31] MEDS: ANUSOL-HC CREAM PR SCH ×2 (08:07→21:19)
[2019-03-31] MEDS: LASIX IV SCH (08:07)
[2019-03-31] MEDS: HYDROCHLOROTHIAZIDE PO SCH (08:08)
[2019-03-31] MEDS: ELIQUIS PO SCH ×2 (08:08→21:19)
[2019-03-31] MEDS: PREDNISONE PO SCH (08:08)
[2019-03-31] MEDS: FOLIC ACID PO SCH (08:09)
[2019-03-31] MEDS: AVAPRO PO SCH (08:09)
[2019-03-31] MEDS: MIRALAX PO SCH ×2 (08:10→21:18)
--- NOTE | 2019-03-31 13:52 | PROGRESS NOTE ---
DATE: 03/31/2019 SUBJECTIVE: The patient has no major complaints. OBJECTIVE: Blood pressure is 120/76, heart rate of 66, respiratory rate 18, temperature 97.9 degrees, 93% on 2 L.Cardiovascular: Regular rate and rhythm. Pulmonary: Bilateral breath sounds clear to auscultation. GI: Soft, nontender, nondistended. Bowel sounds are positive. LABORATORY DATA: I do not have any new data today. PROBLEM LIST: 1. Diastolic heart failure exacerbation. She seems to be improved. I am going to change her Lasix to p.o. and see how she does. That seems to be clinically stable. 2. Early possible dementia. Her mental status seems appropriate but she is having confusion episodes. Her daughter reports that she called her all night through. Since she had concurrent UTI, we may treat the UTIs. Delirium or encephalopathy may be associated with her UTI. She does not clearly described symptoms. 3. Type 2 diabetes appears to be stable. We will continue to follow. Anticipate discharge by her own recommendations to home. She does not want to go anywhere else. She did not have a good experience at rehab previously and therefore wants to avoid that if possible, but she is not ambulating very well with PT. I have not seen her note today. Yesterday she basically refused treatment, but we will work on trying to get her up and out of bed and see how she does and anticipate hopefully discharge tomorrow. I think she is stable for the floor. cc: Carlos Blake MD
[2019-03-31] MEDS: NORCO-10 PO PRN (14:41)
[2019-03-31] MEDS: ROCEPHIN 1 GM in NS 50 ML IV SCH (14:42)
[2019-03-31] MEDS: LASIX PO SCH (21:19)
[2019-04-01 05:31] LABS: EOS# 0.01 X1000 (0.0-0.7); EOS% 0.2 % (0.0-10.0); HEMATOCRIT 33.5 % (37.0-47.0); HEMOGLOBIN 10.1 g/dL (12.0-16.0); IMM GRAN# 0.02 X1000 (0.0-0.04); IMM GRAN% 0.4 % (0.0-0.5); LYMPH# 1.27 X1000 (1.2-3.4); LYMPH% 26.3 % (20.5-51.1); MCH 28.5 PG (27-31); MCHC 30.1 g/dL (33-37); MCV 94.4 FL (81-99); MONO% 10.4 % (1.7-9.3); NEUT# 3.03 X1000 (1.4-6.5); NEUT% 62.7 % (42.2-75.2); PLT 83 X1000 (130-400); RBC 3.55 XMIL (4.2-5.4); RDW 15.9 % (11.5-14.5); WBC 4.83 X1000 (4.8-10.8)
[2019-04-01 05:44] LABS: CALCIUM 11.1 mg/dL (8.8-10.2); CREATININE 1.1 mg/dL (0.5-0.9)
[2019-04-01] MEDS: QUESTRAN PO SCH ×3 (05:48→16:42)
[2019-04-01] MEDS: LASIX PO SCH ×2 (08:26→20:41)
[2019-04-01] MEDS: PREDNISONE PO SCH (08:26)
[2019-04-01] MEDS: MIRALAX PO SCH ×2 (08:27→20:41)
[2019-04-01] MEDS: ELIQUIS PO SCH ×2 (08:27→20:41)
[2019-04-01] MEDS: FOLIC ACID PO SCH (08:27)
[2019-04-01] MEDS: PREPARATION H OINT TOP PRN (08:28)
[2019-04-01] MEDS: AVAPRO PO SCH (12:25)
[2019-04-01] MEDS: PROTONIX PO SCH (12:25)
[2019-04-01] MEDS: ANUSOL-HC CREAM PR SCH ×2 (12:26→20:42)
[2019-04-01] MEDS: ROCEPHIN 1 GM in NS 50 ML IV SCH (13:31)
--- NOTE | 2019-04-01 15:28 | PROGRESS NOTE ---
DATE: 04/01/2019 SUBJECTIVE: Patient has no major complaints except weakness. OBJECTIVE: Blood pressure 126/69, heart rate of 55, respiratory rate 14, temperature 97.9 degrees and 98% on 3 L.Cardiovascular: Regular rate and rhythm. Pulmonary: Bilateral breath sounds clear to auscultation. GI: Soft, nontender, and nondistended. Bowel sounds are positive. LABORATORY: White count 4.8, hemoglobin and hematocrit 10 and 33, platelets 83,000 and creatinine of 1.1. PROBLEMS: 1. Diastolic heart failure exacerbation. We will continue diuretics and follow closely. 2. Dementia. Appears to be stable. She is mentating okay. She is on some antibiotics. 3. Type 2 diabetes with stable blood sugars. DISPOSITION: We had a lengthy discussion about PT option. She is still very adamant about going home with PT. We will plan for tomorrow assuming everything is stable. cc: Carlos Blake MD MTDD
[2019-04-02] MEDS: NORCO-10 PO PRN ×2 (03:12→15:49)
[2019-04-02] MEDS: QUESTRAN PO SCH ×3 (06:20→15:50)
[2019-04-02] MEDS: PROTONIX PO SCH (06:20)
[2019-04-02] MEDS: PREDNISONE PO SCH (09:56)
[2019-04-02] MEDS: FOLIC ACID PO SCH (09:57)
[2019-04-02] MEDS: LASIX PO SCH (09:57)
[2019-04-02] MEDS: ANUSOL-HC CREAM PR SCH ×2 (09:57→21:53)
[2019-04-02] MEDS: AVAPRO PO SCH (09:57)
[2019-04-02] MEDS: ELIQUIS PO SCH ×2 (09:57→21:52)
[2019-04-02] MEDS: MIRALAX PO SCH ×2 (09:58→21:40)
[2019-04-02 12:23] LABS: CALCIUM 10.5 mg/dL (8.8-10.2); CREATININE 1.3 mg/dL (0.5-0.9); PHOSPHORUS 1.5 mg/dL (2.7-4.5); POTASSIUM 3.8 mmol/L (3.5-5.1)
[2019-04-02] MEDS: ROCEPHIN 1 GM in NS 50 ML IV SCH (12:59)
[2019-04-02] MEDS ORDERED: SODIUM PHOSPHATE 40 MEQ in NS 250 ML IV ONE (14:45)
--- NOTE | 2019-04-02 15:06 | PROGRESS NOTE ---
DATE: 04/02/2019 SUBJECTIVE: Patient has no major complaints. OBJECTIVE: Blood pressure is 90/60, heart rate of 70, respiratory rate of 17, temperature was 97.9 degrees. Cardiovascular: Regular rate and rhythm. Pulmonary: Bilateral breath sounds clear to auscultation. GI: Soft, nontender, nondistended. Bowel sounds were positive. Extremity Examination: No clubbing or cyanosis. Lymphatic Examination: No peripheral edema. Laboratory Data: Creatinine 1.3, phosphorus of 1.5. PTH was normal but her calcium was a bit up at 10.5 today but that is down from 11 and her phosphorus was 1.5. Her PTH was normal but not low, so unclear at this point why she had been hypercalcemic but her numbers actually do not look too bad. PROBLEM LIST: 1. Diastolic heart failure. I am going to decrease her Lasix because she is hypotensive and has some renal insufficiency. 2. Dementia, which is mild. She is stabilizing. 3. Type 2 diabetes, is overall stable. 4. Hypercalcemia. We have checked a PTH, phosphorus which is low, which that is consistent with hyperparathyroidism. Her PTH is normal but not high and not low, so maybe a secondary hyperparathyroidism. In any case, we will supplement her phosphorus. 5. Disposition. Initially, she was adamant about going home but she agreed to get evaluated for outpatient rehab as her family members will not be able to watch her for an extended period of time and I think she has risks going home of too many issues. 6. Proteus urinary tract infection. She is on Rocephin and clinically stable. cc: Carlos Blake MD
[2019-04-03 05:39] LABS: BASO# 0.01 X1000 (0.0-0.2); BASO% 0.2 % (0.0-0.8); EOS# 0.03 X1000 (0.0-0.7); EOS% 0.7 % (0.0-10.0); HEMATOCRIT 34.1 % (37.0-47.0); HEMOGLOBIN 10.4 g/dL (12.0-16.0); IMM GRAN# 0.03 X1000 (0.0-0.04); IMM GRAN% 0.7 % (0.0-0.5); LYMPH# 1.22 X1000 (1.2-3.4); LYMPH% 27.7 % (20.5-51.1); MCH 29.2 PG (27-31); MCHC 30.5 g/dL (33-37); MCV 95.8 FL (81-99); MONO# 0.42 X1000 (0.11-0.59); MONO% 9.5 % (1.7-9.3); NEUT% 61.2 % (42.2-75.2); PLT 70 X1000 (130-400); RBC 3.56 XMIL (4.2-5.4); RDW 16.2 % (11.5-14.5); WBC 4.41 X1000 (4.8-10.8)
[2019-04-03 06:00] LABS: CALCIUM 10.8 mg/dL (8.8-10.2); CREATININE 1.3 mg/dL (0.5-0.9)
[2019-04-03] MEDS: QUESTRAN PO SCH ×3 (06:32→17:09)
[2019-04-03] MEDS: PROTONIX PO SCH (06:32)
[2019-04-03] MEDS: FOLIC ACID PO SCH (09:01)
[2019-04-03] MEDS: PREDNISONE PO SCH (09:01)
[2019-04-03] MEDS: ELIQUIS PO SCH ×2 (09:02→22:13)
[2019-04-03] MEDS: AVAPRO PO SCH (09:02)
[2019-04-03] MEDS: LASIX PO SCH (09:02)
[2019-04-03] MEDS: MIRALAX PO SCH ×2 (09:03→22:14)
[2019-04-03] MEDS: PREPARATION H OINT TOP PRN (09:09)
[2019-04-03] MEDS: ANUSOL-HC CREAM PR SCH ×2 (09:09→22:14)
--- NOTE | 2019-04-03 12:15 | PROGRESS NOTE ---
DATE: 04/03/2019 SUBJECTIVE: The patient denies having any complaints this morning. OBJECTIVE: Vital signs: Temperature is 98.0 degrees, pulse 51 per minute, respiratory rate 18 per minute, blood pressure 122/74, pulse oximetry 99% on 2 L of oxygen per nasal cannula. She has been having pulse oximetry of 97% to 100% on room air, however. Cardiovascular: First and second heart sounds are audible without any murmurs or gallops. Respiratory: Bilateral lung air entry is slightly decreased, but there are no rales or rhonchi present on auscultation. Gastrointestinal: The patient is morbidly obese. Abdomen is soft and nontender on palpation. Normal bowel sounds are present. DIAGNOSTIC DATA: CBC shows WBC count of 4.41, hemoglobin 10.4, hematocrit 34.1, and platelet count of 70,000. In comparison, her hemoglobin and hematocrit were 10.1 and 32.5 yesterday. Her platelet counts have been between 80,000 to 90,000. Basic metabolic panel showed BUN of 38 and creatinine 1.3. The rest of the chemistry is nondiagnostic. In comparison, her BUN and creatinine were 37 and 1.3, respectively, yesterday. Urinalysis on 03/27/2019 showed small leukocytes but otherwise was negative. IMPRESSION: 1. Diastolic congestive heart failure that has now improved. 2. Type 2 diabetes mellitus that has been stable. 3. Mild urinary tract infection that has been treated with ceftriaxone. 4. Thrombocytopenia that is stable. 5. Dementia that is mild and stable. PLAN: The patient will continue to get current treatment, although I am going to discontinue ceftriaxone since she already took it for 5 days. Her overall condition is stable, and we are going to continue with current medications, but she is ready to be transferred out, and the family has requested her to have physical therapy in an inpatient facility since she is having generalized deconditioning. I have put in a request to social science professor to work on it and see if we can send her to rehab. The patient's family has requested [facility], and we try to see if we can find a bed over there. She can be discharged to the rehab facility once we find a bed. cc: Diego Enrique MD
[2019-04-03] MEDS: ROCEPHIN 1 GM in NS 50 ML IV SCH (14:00)
[2019-04-03] MEDS: NORCO-10 PO PRN (22:13)
[2019-04-03] MEDS: HUMULIN R SUBQ SCH (22:14)
[2019-04-04] MEDS: HUMULIN R SUBQ SCH ×4 (06:00→20:45)
[2019-04-04] MEDS: QUESTRAN PO SCH ×4 (06:11→17:51)
[2019-04-04] MEDS: MIRALAX PO SCH ×2 (08:32→20:49)
[2019-04-04] MEDS: FOLIC ACID PO SCH (08:33)
[2019-04-04] MEDS: LASIX PO SCH (08:33)
[2019-04-04] MEDS: ELIQUIS PO SCH ×2 (08:33→20:43)
[2019-04-04] MEDS: PREDNISONE PO SCH (08:33)
[2019-04-04] MEDS: AVAPRO PO SCH (08:33)
[2019-04-04] MEDS: PROTONIX PO SCH (08:33)
--- NOTE | 2019-04-04 09:09 | PROGRESS NOTE ---
DATE: 04/04/2019 SUBJECTIVE: The patient has no complaints, states that she is feeling okay, hopes she gets to go to [facility] soon. OBJECTIVE: Vitals: Temperature 98, pulse 71, BP 110/83 to 80/60. General: The patient is awake and alert. She is in no distress. She is sitting in the bed eating breakfast. HEENT: Normocephalic. Neck: Supple. Cardiovascular: Regular rate. Chest: Clear, nonlabored. Abdomen: Soft. Nondistended. Extremities: Moves all extremities, although generalized weakness. ASSESSMENT: 1. Adult failure to thrive, with generalized weakness. 2. Diastolic congestive heart failure. 3. Proteus mirabilis urinary tract infection, on day 5 of 7 of Rocephin. 4. Thrombocytopenia, stable. 5. Dementia, mild and stable. PLAN: We will continue the patient in the hospital on antibiotics. Continue physical therapy. Expect that she will need rehab on discharge. cc: Jason King MD
[2019-04-04] MEDS: NORCO-10 PO PRN ×2 (09:45→20:43)
[2019-04-04] MEDS: ANUSOL-HC CREAM PR SCH ×2 (10:20→20:49)
[2019-04-04] MEDS: MYCOSTATIN POWDER TOP SCH ×2 (10:21→20:50)
[2019-04-04] MEDS: ROCEPHIN 1 GM in NS 50 ML IV SCH ×2 (12:35→16:41)
[2019-04-05] MEDS: QUESTRAN PO SCH ×3 (06:14→19:04)
[2019-04-05] MEDS: HUMULIN R SUBQ SCH ×4 (06:15→21:23)
[2019-04-05 08:21] LABS: HEMATOCRIT 31.8 % (37.0-47.0); HEMOGLOBIN 9.8 g/dL (12.0-16.0); MCH 29.3 PG (27-31); MCHC 30.8 g/dL (33-37); MCV 95.2 FL (81-99); PLT 82 X1000 (130-400); RBC 3.34 XMIL (4.2-5.4); WBC 5.32 X1000 (4.8-10.8)
[2019-04-05 08:40] LABS: AGAP 8; BUN 38 mg/dL (8-22); CALCIUM 10.6 mg/dL (8.8-10.2); CHLORIDE 103 mmol/L (98-107); COSMO 279; ESTIMATED GFR > 60; GLUCOSE 88 mg/dL (70-104); POTASSIUM 4.2 mmol/L (3.5-5.1); SODIUM 135 mmol/L (136-145); TCO2 24 mmol/L (25-35)
[2019-04-05] MEDS: PROTONIX PO SCH (09:18)
[2019-04-05] MEDS: PREDNISONE PO SCH (09:18)
[2019-04-05] MEDS: ELIQUIS PO SCH ×2 (09:19→20:47)
[2019-04-05] MEDS: LASIX PO SCH (09:19)
[2019-04-05] MEDS: FOLIC ACID PO SCH (09:19)
[2019-04-05] MEDS: AVAPRO PO SCH (09:19)
[2019-04-05] MEDS: MIRALAX PO SCH ×2 (09:20→21:42)
[2019-04-05] MEDS: ANUSOL-HC CREAM PR SCH ×2 (09:20→21:43)
[2019-04-05] MEDS: MYCOSTATIN POWDER TOP SCH ×2 (09:20→21:43)
[2019-04-05] MEDS: NORCO-10 PO PRN ×2 (09:36→21:22)
[2019-04-05] MEDS: ROCEPHIN 1 GM in NS 50 ML IV SCH (13:47)
--- NOTE | 2019-04-05 17:50 | PROGRESS NOTE ---
DATE: 04/05/2019 INTERVAL HISTORY: The patient remains pretty stable. Still on little bit of oxygen but appears to have room to wean off. No new complaints. REVIEW OF SYSTEMS: Still some weakness otherwise 12-point review of systems negative except as per interval history. LABS: WBC 5.3, hemoglobin 9.8, hematocrit 31.8, platelets 82,000, sodium 135, potassium 4.2, BUN 38, creatinine 1.0, glucose 80 to 207. VITALS: T-max 98.9 degrees, pulse 53, respirations 16, blood pressure 100/63, O2 saturation 94% on 1 L. PHYSICAL EXAMINATION: General: No acute distress. Chronically ill-appearing. Vitals as above. HEENT: Normocephalic, atraumatic. Moist mucous membranes. Cardiovascular: Regular rate and rhythm. No murmurs noted. Pulmonary: Clear to auscultation bilaterally. No wheezing noted. Abdomen: Soft, nontender, nondistended. Bowel sounds positive. Extremities: Peripheral pulses intact. No clubbing or cyanosis. Neurologic: Cranial nerves intact. No focal deficits although remains globally weak. Psychiatric: Normal mood and affect. Currently awake, alert, oriented x3. ASSESSMENT/PLAN: 1. Failure to thrive, asthenia. The patient remains globally weak. Plan is for discharge to rehab hopefully tomorrow. 2. Urinary tract infection due to Proteus mirabilis. On day 6 of Rocephin. 3. Dementia mild. Patient cooperative and generally fully oriented. 4. Thrombocytopenia roughly stable. No signs or symptoms of bleeding, monitor. 5. Hypertension, acceptable control on current therapy, monitor. 6. Diabetes. Some occasional elevations but overall acceptable control of blood sugar currently. 7. Acute kidney injury versus chronic kidney disease 3. Patient with mildly elevated creatinine on admission of 1.3 down to 1.0 today. Has been as low 0.8 earlier in the year but not entirely certain exact baseline. Likely pretty close to baseline at this point but will continue monitoring. 8. Hyponatremia mild asymptomatic, will monitor but no need for further workup at this time. 9. Disposition. Hopefully to rehab tomorrow.
[2019-04-06] MEDS: PROTONIX PO SCH (06:19)
[2019-04-06] MEDS: QUESTRAN PO SCH ×2 (06:19→12:39)
[2019-04-06] MEDS: HUMULIN R SUBQ SCH ×2 (06:47→13:39)
[2019-04-06] MEDS ORDERED: OMNICEF PO SCH (09:00)
[2019-04-06] MEDS: AVAPRO PO SCH (09:00)
[2019-04-06] MEDS: ELIQUIS PO SCH (09:01)
[2019-04-06] MEDS: LASIX PO SCH (09:01)
[2019-04-06] MEDS: FOLIC ACID PO SCH (09:01)
[2019-04-06] MEDS: NORCO-10 PO PRN (09:07)
[2019-04-06] MEDS: MYCOSTATIN POWDER TOP SCH (09:08)
[2019-04-06] MEDS: ANUSOL-HC CREAM PR SCH (09:08)
[2019-04-06] MEDS: MIRALAX PO SCH (09:08)
[2019-04-06 11:49] VITALS: BP 120/55
--- NOTE | 2019-04-06 12:42 | DISCHARGE SUMMARY ---
ADMISSION DATE: 03/27/2019 DISCHARGE DATE: 04/06/2019 CONSULTATION: Cardiology, Dr. Victoria. PERTINENT STUDIES: 1. Cardiac Lexiscan stress test with normal EF and no reversible ischemia. 2. Head CT with stable advanced chronic white matter changes but no acute pathology. 3. Abdominal ultrasound with likely mild hepatic steatosis and slightly prominent gallbladder but no stones, pericholecystic fluid or other sign of infection. Kidneys did not have any sign of obstruction. 4. Platelets as low as 70, up to 82 at discharge. Creatinine as high as 1.3. Creatinine down to 1.0 at discharge. Last hemoglobin A1c 7.8. DISCHARGE DIAGNOSES: 1. Global weakness/asthenia. 2. Urinary tract infection due to Proteus mirabilis. 3. Mild dementia. 4. Thrombocytopenia. 5. Hypertension. 6. Diabetes. 7. Likely acute kidney injury. 8. Hyponatremia. 9. History of pulmonary embolism and deep venous thrombosis. HOSPITAL COURSE: The patient presented initially with progressive weakness. She had reportedly had a recent CVA and had gone to rehab but after going home, she reported she did not have the strength to get out of the car. Also had some dyspnea associated with it. On initial evaluation, the patient was found to have some lower extremity edema, some mild edema on x-ray. BNP was not significantly elevated at 291, but it was thought the patient had some aspect of diastolic congestive heart failure. She was given diuresis which did seem to improve her symptoms. She was also incidentally noted to have a UTI which was treated with a course of Rocephin which she finished prior to discharge. Also had a mildly elevated creatinine just after admission, trended up to 1.3, but was back down to 1.0 at discharge, which was thought to be her baseline. After resolution of her mild volume overload, patient remained fairly significantly weak, so she desired discharge to rehab, which was arranged. The patient's chronic medical issues, including hypertension and diabetes, were largely stable. She did have some moderate hyperglycemia with meals, but her fasting numbers were quite good, so no major adjustments were made. Her last A1c was acceptable given age at 7.8. Due to the patient's dyspnea and possible heart failure, Cardiology was involved. They did a stress test which was unremarkable. The patient did have incidental note of minimally elevated LFTs, but workup showed no major pathology, only mild fatty liver. DISCHARGE VITAL SIGNS: Temperature 97.7 degrees, pulse 48, respirations 13, blood pressure 131/70, O2 saturation 95% on 1 L by nasal cannula. DISCHARGE DIET: Diabetic and heart healthy. DISCHARGE MEDICATIONS: 1. Advair inhaler 1 puff b.i.d. 2. Cholestyramine 4 g p.o. with meals. 3. Eliquis 5 mg p.o. b.i.d. 4. Metformin 500 mg p.o. b.i.d. 5. Lasix 40 mg p.o. daily. 6. Prednisone 20 mg p.o. daily. 7. Albuterol inhaler q.8 hours p.r.n. 8. Folic acid 1 mg p.o. daily. 9. Irbesartan 300 mg p.o. daily. 10. MiraLAX 17 g p.o. b.i.d., hold if greater than 1 bowel movement in the last 24 hours. 11. Gunter 10 q.4 hours as needed. 12. Cefdinir 300 mg p.o. b.i.d. for another day. 13. Protonix 40 mg p.o. daily. FOLLOWUP AND PLAN: Patient discharging to rehab for strengthening prior to going back home. Patient to follow up with PCP.
== END 2019-04-06 15:12 | DRG 292 ==
LOC: SUPCPDRO → ED 17:13 → 2N 23:08 → SUATTDRO 23:08 → 2N 03-28 00:08 → 1N 03-31 17:48
PROVIDERS: ATTEND Internal Medicine

== ENCOUNTER 2019-06-15 18:33 | Inpatient (IN) ==
--- NOTE | 2019-06-15 19:46 | PROVIDER DOCUMENTATION ---
HPI-General Adult - General Chief Complaint: Fall Stated Complaint: AMS Time Seen by Provider: 06/15/19 18:55 Source: patient, family Allergies/Adverse Reactions: Patient Allergies Allergy/AdvReac Type Severity Reaction Status Date / Time Penicillins Allergy HIVES Verified 06/15/19 21:30 diltiazem HCl * AdvReac RASH Verified 06/15/19 21:30 [From Cardizem] ibuprofen AdvReac ABDOMINAL Verified 06/15/19 21:30 PAIN Home Medications: Home Medication List Medication Instructions Recorded Confirmed Last Taken Type Folic Acid 1 mg PO DAILY tab 08/28/18 06/15/19 1 Day Ago Rx ~06/01/19 Apixaban [Eliquis] 5 mg PO BID 03/28/19 06/15/19 06/01/19 History Albuterol [Albuterol Neb] 2.5 mg INH Q4H PRN PRN #24 neb 06/02/19 06/15/19 Unknown Rx Celecoxib [Celebrex] 50 mg PO QAM 06/02/19 06/15/19 1 Day Ago History ~06/01/19 Levothyroxine Sodium [Synthroid] 25 mcg PO QAM 06/02/19 06/15/19 1 Day Ago History ~06/01/19 Losartan [Cozaar] 50 mg PO BID 06/02/19 06/15/19 1 Day Ago History ~06/01/19 Metformin [Glucophage] 500 mg PO BID CC 06/02/19 06/15/19 1 Day Ago History ~06/01/19 Metformin [Glucophage] 500 mg PO WBREAKFAST #30 tab 06/02/19 06/15/19 Unknown Rx Methocarbamol [Robaxin] 500 mg PO BID PRN #10 tab 06/02/19 06/15/19 Unknown Rx - History of Present Illness -Gen Adult Nature of Presenting Problems: PATIENT FELL OUT OF BED YESTERDAY THAT ABOUT 2 FEET HIGH AND STATES HER RIGHT ANKLE AND KNEE HURTS. PATIENT ALSO HAS BEEN HAVING PRODUCTIVE COUGH; NO FEVER. PER FAMILY MEMBER, PATIENT HAS BEEN MOSTLY BED BED FOR A LONG TIME NOW. Review of Systems - Adult - REVIEW OF SYSTEMS - ADULT ROS:: unobtainable per condition Constitutional: reports: no symptoms reported. denies: chills, fever, night sweats Eyes: reports: no symptoms reported Ears, Nose, Mouth & Throat: reports: no symptoms reported Cardiovascular: reports: no symptoms reported Respiratory: reports: cough. denies: hemoptysis, shortness of breath, wheezing Gastrointestinal: reports: no symptoms reported Genitourinary: reports: no symptoms reported Musculoskeletal: reports: no symptoms reported Integumentary: reports: no symptoms reported Neurological: reports: no symptoms reported Psychiatric: reports: no symptoms reported Endocrine: reports: no symptoms reported Hematologic/Lymphatic: reports: no symptoms reported Allergic/Immunologic: reports: no symptoms reported Past History - Adult - PAST MEDICAL HISTORY-ADULT Review of Records: reports: Old Records Reviewed Major Childhood Illnesses: reports: denies history Cardiovascular: reports: arrhythmia, CHF, HTN, other (Enlarged) Respiratory: reports: asthma, COPD Gastrointestinal: reports: denies history Obstetrical/Gynecological: reports: denies history Genitourinary: reports: kidney stones Musculoskeletal: reports: arthritis (RA), fibromyalgia Neurological: reports: denies history Endocrine/Immune: reports: anemia, Diabetes, RA, thyroid disorder (hypo), other (Sickle Cell trait) Other Conditions: reports: denies history - PRIOR SURGERIES/PROCEDURES Surgical/Procedure History: reports: BTL, , orthopedic (extremity), joint replacement (TKR) - IMMUNIZATION STATUS Childhood Immunizations: See Nurse Assessment Flu Vaccine: See Nurse Assessment - FAMILY HISTORY Family History: reviewed, not pertinent Physical Exam-General - PHYSICAL EXAM-ADULT Initial Vital Signs Reviewed: Yes - CONSTITUTIONAL General Appearance: appears well, alert, no apparent distress - EYES Eyes: PERRL/EOMI - HEAD, EARS, NOSE, MOUTH & THROAT HENMT: normocephalic/atraumatic, moist mucous membranes - NECK Neck: non-tender, full range of motion, supple, normal inspection - RESPIRATORY Respiratory: chest non-tender, lungs clear, normal breath sounds, no pleuratic chest pain, no respiratory distress, no accessory muscle use - CARDIOVASCULAR Cardiovascular: normal peripheral pulses, regular rate, rhythm, no edema, no gallop, no JVD, no murmur - GASTROINTESTINAL (ABDOMEN) Abdominal Exam: normal bowel sounds, non tender, soft, no organomegaly - MUSCULOSKELETAL Back Exam: normal inspection, no CVA tenderness Extremity: normal range of motion, non-tender, normal inspection - SKIN Integumentary: normal color, normal turgor, warm/dry - NEUROLOGIC Neurologic: grossly normal - PSYCHIATRIC Psych/Mental Status: normal mood/affect, normal thought content, normal thought process, oriented x 3 Progress - PLAN OF CARE/RESULTS Progress/Plan/Lab Results: Vital Signs - 8 hr 06/15/19 18:51 Temperature 99.5 F Pulse Rate 99 H Respiratory Rate 22 Blood Pressure 161/89 O2 Sat by Pulse Oximetry 93 L Orders Category Date Time Status ANKLE 2 VIEWS RIGHT [RAD] Stat Exams 06/15/19 19:39 Ordered KNEE 1-2 VIEWS-RIGHT [RAD] Stat Exams 06/15/19 19:39 Ordered cxr [CHEST-PORTABLE] [RAD] Stat Exams 06/15/19 19:39 Ordered URINALYSIS W/POSS RFLX CULT [URINALYSIS] Stat Lab 06/15/19 19:40 Uncollected Result Diagrams: 06/15/19 20:27 06/15/19 21:26 - REASSESSMENT Reassessment #1 Time Reassessed: 22:40 Status: other (I HAVE INFORMED BY RN THAT PATIENT SCREENED SEPSIS AND THEY STARTED ON SEPSIS PROTOCL. LATER, PATIENT DOESN'T SCREEN SPSIS ANYMORE. I AM STILL PENDING UA TO ENSURE NO UTI FOR PATIENT'S FALL.) Reassessment #2 Time Reassessed: 23:49 Status: other (AFTER D50; PATIENT IS MUCH ALERT AOX3) Reassessment #3 Time Reassessed: 01:26 Status: other (ALTERED MENTATION 2/2 TO HYPOGLYCEMIA; SPOKE TO HOSPITALIST AND APPREIATE DR. VICENTE ASSISTANCE FOR OBSERVATION. I HAVE REVIEWED THE RIGHT UPPER EXTERMITY X-RAY WHICH DID NOT REVEALING ANY FRACUTRE PER MY READ; PENDING OFFICAL READ BY RADIOLOGIST. PATIENT AND DAUGHTER WAS INFORMED TO HAVE PATIENT FOLLOW UP WITH PCP ONCE D/C BECAUSE OF PROBABLE LIGMENT INJURY AND THEY UNDERSTOOD.) Departure - Departure Date of Disposition Decision: 06/16/19 Time of Disposition Decision: 01:28 DIAGNOSIS: Hypoglycemia, Altered mental status Disposition: ADMITTED INPATIENT 09 Certified Medical Emergency: Emergent Condition: Stable Referrals and Follow-Ups: Fatuma Johnston MD [Primary Care Provider] - - Critical Care Note This patient required my direct & personal management of CC.: No Attestation - Physician/ ROXANNE Attestation Patient care was provided by Advanced Practice Provider:: No The physician spent face to face time with patient:: Yes Advanced Practice Provider documentation review:: Supervising physician onsite and consulted in the evaluation and care of this patient. The physician did have a face to face encounter with the patient.
--- NOTE | 2019-06-15 20:11 | Diag Imaging Result Doc PS360 ---
EXAM: CHEST-PORTABLE 06/15/2019 HISTORY: prod cough TECHNIQUE: Erect AP portable at 1957 COMMENT: There is ill-defined opacity silhouetting the left heart border and in the retrocardiac region of the left lower lobe. This appears somewhat improved since the previous study of 05/31/2019. Otherwise, there has been no significant change. IMPRESSION: Atelectasis and/or pneumonia in the lingula and left lower lobe. Electronically signed by Alan Eastman 06/15/2019 8:09 PM
--- NOTE | 2019-06-15 20:14 | Diag Imaging Result Doc PS360 ---
EXAM: KNEE 1-2 VIEWS-RIGHT 06/15/2019 HISTORY: fall TECHNIQUE: Right knee three views COMMENT: There is no evidence of acute fracture or dislocation. There are apparent synovial osteochondromata posteriorly. There is a total knee arthroplasty. Compared to the previous examination of 06/02/2019 there is apparent widening of the lateral joint space between the femoral and tibial prostheses. Otherwise are has been no significant change. IMPRESSION: Probable disruption of the lateral collateral ligament complex. Electronically signed by Alan Eastman 06/15/2019 8:11 PM
--- NOTE | 2019-06-15 20:15 | Diag Imaging Result Doc PS360 ---
EXAM: ANKLE 2 VIEWS RIGHT 06/15/2019 HISTORY: fall TECHNIQUE: Right ankle three views COMMENT: There is generalized osteopenia. There is extensive arteriosclerosis. No definite acute fracture is demonstrated. IMPRESSION: No evidence of acute bony disease. Electronically signed by Alan Eastman 06/15/2019 8:12 PM
[2019-06-15 21:08] LABS: BASO# 0.01 X1000 (0.0-0.2); BASO% 0.3 % (0.0-0.8); EOS# 0.06 X1000 (0.0-0.7); EOS% 1.6 % (0.0-10.0); HEMATOCRIT 36.4 % (37.0-47.0); HEMOGLOBIN 11.9 g/dL (12.0-16.0); LYMPH# 0.99 X1000 (1.2-3.4); LYMPH% 25.6 % (20.5-51.1); MCH 30.6 PG (27-31); MCHC 32.7 g/dL (33-37); MCV 93.6 FL (81-99); MONO# 0.32 X1000 (0.11-0.59); MONO% 8.3 % (1.7-9.3); NEUT# 2.49 X1000 (1.4-6.5); NEUT% 64.2 % (42.2-75.2); PLT 250 X1000 (130-400); RBC 3.89 XMIL (4.2-5.4); RDW 18.2 % (11.5-14.5); WBC 3.87 X1000 (4.8-10.8)
[2019-06-15 22:09] LABS: INR 1.26
[2019-06-15 22:10] LABS: PTT 25.4 Seconds (22.3-41.8)
[2019-06-15 22:44] LABS: ALB/GLOB RATIO 0.8; ALBUMIN 2.6 g/dL (3.5-5.0); CALCIUM 10.8 mg/dL (8.8-10.2); CREATININE 1.2 mg/dL (0.5-0.9); MAGNESIUM 1.5 mg/dL (1.5-2.7); TOTAL BILIRUBIN 1.06 mg/dL (0.20-1.00); TOTAL PROTEIN 5.9 g/dL (6.3-8.3)
[2019-06-15 22:48] LABS: URINE SOURCE CATH
[2019-06-15] MEDS ORDERED: D50W SYRINGE IV ONE (23:10)
[2019-06-15 23:15] LABS: BILIRUBIN URINE NEGATIVE (NEGATIVE); BLOOD URINE NEGATIVE (NEGATIVE); COLOR YELLOW; GLUCOSE URINE NEGATIVE (NEGATIVE); KETONE URINE 10 mg/dL (NEGATIVE); LEUKOCYTES URINE NEGATIVE (NEGATIVE); NITRITE URINE NEGATIVE (NEGATIVE); PROTEIN URINE 30 mg/dL (NEGATIVE); SP GRAVITY URINE 1.014; TURBIDITY URINE CLEAR (CLEAR); UROBILINOGEN URINE NORMAL (NORMAL)
[2019-06-15] MEDS ORDERED: D50W 50 ML IV SCH (23:15)
[2019-06-15 23:18] LABS: UR EPITHELIAL CELLS <10 /HPF (<10); URINE BACTERIA NEGATIVE /HPF; URINE RBC <10 /HPF (<10); URINE WBC <10 /HPF (<10)
[2019-06-16] MEDS ORDERED: D50W SYRINGE IV ONE (01:41)
[2019-06-16] MEDS ORDERED: POTASSIUM CHLORIDE 20 MEQ, MAGNESIUM SULFATE 2 GM, THIAMINE 100 MG, FOLIC ACID 1 MG, M.... IV SCH ×6 (02:39)
[2019-06-16] MEDS ORDERED: ZOFRAN IV PRN (02:39)
[2019-06-16] MEDS ORDERED: LEVAQUIN 500 MG/D5W 500 MG/100 ML IVPB IV SCH (04:45)
[2019-06-16] MEDS: TYLENOL PR PRN ×2 (04:53→14:00)
[2019-06-16] MEDS ORDERED: TYLENOL ONE (04:58)
--- NOTE | 2019-06-16 06:30 | HISTORY AND PHYSICAL ---
PRIMARY CARE PHYSICIAN: None. CHIEF COMPLAINT: Fall with altered mental status. HISTORY OF PRESENTING ILLNESS: A 73-year-old female with a history of diabetes mellitus type 2, hypertension, hyperlipidemia, obesity, and history of PE and DVT who had presented to our emergency department after she had a fall. Family states that she was getting confused, and apparently she fell of her bed. She was brought to the emergency department, and she had laboratories drawn that did show she had a low blood glucose. She was treated with an amp of D50. Due to her presenting symptoms, it was thought that we will place her for observation for further evaluation and management. At the time of my examination, the patient was still somewhat confused, however, she denied any headache, fever, chills, chest pain, or shortness of breath. PAST MEDICAL HISTORY: Include diabetes mellitus type 2, hypertension, hyperlipidemia, obesity, sickle cell trait, and history of DVT and PE. PAST SURGICAL HISTORY: Right bilateral knee surgery, left hip surgery, and hernia repair. ALLERGIES: Penicillin, diltiazem, and ibuprofen. CURRENT MEDICATIONS: 1. Albuterol nebs q.4 hours. 2. Eliquis 5 mg p.o. b.i.d. 3. Celebrex 50 mg p.o. every morning. 4. Folic Acid 1 mg p.o. daily. 5. Synthroid 25 mcg p.o. every morning. 6. Losartan 50 mg p.o. b.i.d. 7. Metformin 500 mg p.o. b.i.d. 8. Robaxin 500 mg p.o. b.i.d. SOCIAL HISTORY: She is a former smoker. No history of alcohol or illicit drug use. She is mainly bed bound. FAMILY HISTORY: No history of coronary disease. REVIEW OF SYSTEMS: Fourteen point review of system as listed in HPI. Other systems negative. PHYSICAL EXAMINATION: GENERAL: The patient is resting comfortably now. VITAL SIGNS: Temperature 99.5 degrees, pulse 99, respirations 22, and blood pressure 161/89. HEENT: Atraumatic, normocephalic. PERRLA. NECK: No masses. CHEST: Clear to auscultation. CARDIOVASCULAR: Regular rate and rhythm. ABDOMEN: Soft, obese. Positive bowel sounds. EXTREMITIES: +2 edema. NEUROLOGIC: She is awake, alert, and oriented x2. : No bladder distention. SKIN: Warm. LABORATORIES AND STUDIES: WBC 3.87, hemoglobin 11.9, hematocrit 36.4, and platelets 250,000. Sodium 143, potassium 5.0, chloride 113, CO2 16, BUN 19, and creatinine is 1.2. Glucose was 32. Repeat after D50 was 124. Chest x-ray shows atelectasis. ASSESSMENT: A 73-year-old female with a history of diabetes mellitus type 2, hypertension, hyperlipidemia, and history of PE and DVT who had presented to the emergency department after she had a fall. Family states that she was getting more confused and disoriented. She was evaluated in the emergency department. She was found to have low blood glucose. She was treated with an amp of D50. However, due to presenting symptoms, we will place her for observation for further evaluation and management. 1. Status post fall. 2. Altered mental status. 3. Diabetes mellitus type 2 with hypoglycemic episodes. 4. Hypertension. PLAN: 1. We will admit patient to medical floor with telemetry. 2. Place patient on fall precautions. 3. We will continue to check neuro status. 4. We will continue with D5 half-normal saline. 5. We will monitor blood glucose closely. 6. We will monitor blood pressure. 7. Patient is on Eliquis, and that will suffice for DVT prophylaxis. 8. We will continue to follow and reassess. Make further recommendation based on patient's clinical course. cc: Bud Villavicencio MD
--- NOTE | 2019-06-16 07:31 | Diag Imaging Result Doc PS360 ---
EXAM: WRIST 2 VIEWS-RIGHT HISTORY: FALL TECHNIQUE: Two views COMPARISON: None. FINDINGS: The bones are osteopenic. Long-standing arthritis with radiocarpal joint space narrowing. This fusion of the carpal bones. Prominent atherosclerosis. No fracture. No dislocation. IMPRESSION: No acute bony injury. Electronically signed by Adam uMnoz 06/16/2019 7:28 AM
--- NOTE | 2019-06-16 07:53 | Diag Imaging Result Doc PS360 ---
EXAM: ELBOW 2 VIEWS RIGHT INDICATION: FALL TECHNIQUE: 2 views COMPARISON: None. FINDINGS: There is a small bone spur at the olecranon process. There is mild degenerative change at the radiohumeral joint. There is no discrete fracture, dislocation, or significant intrinsic osseous lesion, otherwise. There appears to be soft tissue edema around the forearm. IMPRESSION: Soft tissue edema but no definite acute osseous abnormality. Electronically signed by Miguel Hart 06/16/2019 7:50 AM
--- NOTE | 2019-06-16 07:54 | Diag Imaging Result Doc PS360 ---
EXAM: SHOULDER 1 VIEW RIGHT INDICATION: FALL TECHNIQUE: 2 views COMPARISON: None. FINDINGS: There is glenohumeral and AC joint degenerative arthropathy with small marginal osteophytes. There is no discrete fracture, dislocation, or significant intrinsic osseous lesion, otherwise. The surrounding soft tissues are essentially unremarkable. IMPRESSION: Degenerative changes but no definite acute osseous abnormality by plain radiograph. Electronically signed by iMguel Hart 06/16/2019 7:51 AM
--- NOTE | 2019-06-16 08:01 | EKG Report ---
Test Performed on : 06/16/2019 04:35:01 AM Test Reason : AMS Blood Pressure : / mmHG Vent. Rate : 127 BPM Atrial Rate : 127 BPM P-R Int : 156 ms QRS Dur : 070 ms QT Int : 258 ms P-R-T Axes : 040 040 086 degrees QTc Int : 374 ms Sinus tachycardia. Low voltage QRS Cannot rule out Anterior infarct (cited on or before 03-MAR-2011) Abnormal ECG When compared with ECG of 31-MAY-2019 14:10, (Unconfirmed) Vent. rate has increased BY [address] elevation now present in Inferior leads Nonspecific T wave abnormality now evident in Inferior leads Unconfirmed Result
[2019-06-16] MEDS ORDERED: COZAAR PO SCH (09:00)
[2019-06-16] MEDS: ALBUTEROL NEB INH PRN (09:53)
[2019-06-16 10:04] LABS: BASO# 0.03 X1000 (0.0-0.2); BASO% 0.2 % (0.0-0.8); EOS# 0.01 X1000 (0.0-0.7); EOS% 0.1 % (0.0-10.0); HEMATOCRIT 38.4 % (37.0-47.0); IMM GRAN# 0.04 X1000 (0.0-0.04); IMM GRAN% 0.3 % (0.0-0.5); LYMPH# 0.94 X1000 (1.2-3.4); LYMPH% 6.8 % (20.5-51.1); MCH 30.5 PG (27-31); MCHC 31.3 g/dL (33-37); MCV 97.5 FL (81-99); MONO# 0.63 X1000 (0.11-0.59); MONO% 4.6 % (1.7-9.3); MPV 12.5 FL (7.4-10.4); NEUT# 12.14 X1000 (1.4-6.5); PLT 99 X1000 (130-400); RBC 3.94 XMIL (4.2-5.4); RDW 17.4 % (11.5-14.5); WBC 13.79 X1000 (4.8-10.8)
[2019-06-16 10:07] LABS: BANDS 4 % (0-1); LARGE PLATELETS 1+; LYMPHS 4 % (21-51); MONO 2 % (1-9); SEGS 90 % (42-75)
[2019-06-16 10:35] LABS: CALCIUM 10.4 mg/dL (8.8-10.2); CREATININE 1.2 mg/dL (0.5-0.9); POTASSIUM 4.2 mmol/L (3.5-5.1)
--- NOTE | 2019-06-16 13:58 | PROGRESS NOTE ---
DATE: 06/16/2019 Patient admitted with confusion and hypoglycemia. Hypoglycemia is improved with treatment in the ED, but the patient remains pretty encephalopathic. She will wake up, follow some commands, but oriented to person only. Chest x-ray most consistent with atelectasis, but given leukocytosis, high fever up to 104.2, and unremarkable urinalysis, favor pneumonia. Patient initially placed on Levaquin, but given hospitalization just a couple of months ago, high fever, and possible pneumonia, will go ahead and broaden coverage to vancomycin and cefepime, and monitor closely. Blood cultures are no growth so far. Will continue to monitor blood sugars to make sure she does not have further significant hypoglycemia. Patient also noted to have some stage II decubitus ulcers on admission. Will give local wound care for those.
[2019-06-16] MEDS: ELIQUIS PO SCH ×2 (14:03→23:08)
[2019-06-16] MEDS: SYNTHROID PO SCH (14:03)
[2019-06-16] MEDS: FOLIC ACID PO SCH (14:03)
[2019-06-16] MEDS: MAXIPIME 2 GM/NS 2 GM/100 ML IVPB IV SCH (14:05)
--- NOTE | 2019-06-16 14:57 | Diag Imaging Result Doc PS360 ---
EXAM: CT THORAX/ABD/PELVIS W/O CON 06/16/2019 HISTORY: sepsis, high fever, source uncertain. ? pneumonia TECHNIQUE: This exam was performed using automated exposure control, adjustment of mA or kV according to patient size, and/or use of iterative reconstruction technique. COMMENT: Thorax: The current examination is compared with the previous study of 08/24/2018. There are multiple small nodes in the prevascular space and aorticopulmonary window. Overall the appearance of the mediastinum has not changed significantly since the previous study. There are no abnormal fluid collections. There is consolidation and volume loss in the left lower lobe and some degree of volume loss and opacity is present posteriorly in the lingula. This was not the case on the previous study. There is also some platelike opacity in the right lower lobe which was present previously and there is evidence of bronchiectasis in the right lower lobe. There is some beam hardening artifact due to the patient's arms being in the [id number]. There is no evidence of acute bony abnormality. ABDOMEN/pelvis: The current study is compared with the previous abdominal study of 08/14/2014 and the pelvis of 06/02/2019. The liver is hypodense suggesting fatty change. There is marked beam hardening artifact over the upper abdomen due to the patient's arm. There are multiple stones in the left kidney. There is no evidence of hydronephrosis. None of the stones exceeds 4 mm in size. There are multiple surgical clips around the inferior vena cava and common iliac veins. There is no evidence of appendicitis. There is a large amount of stool in the rectum. There is a left hip prosthesis. No free fluid is present. The urinary bladder is not distended. The regional skeleton appears to be intact. IMPRESSION: 1. Left lower lobe pneumonia. 2. Left nephrolithiasis. 3. Fecal impaction. Electronically signed by Alan Eastman 06/16/2019 2:55 PM
[2019-06-16] MEDS ORDERED: CALMOSEPTINE OINTMENT TOP PRN (17:42)
[2019-06-16] MEDS: NS 1,000 ML IV SCH (17:46)
[2019-06-16] MEDS ORDERED: NS 500 ML IV ONE (20:42)
[2019-06-16 21:08] LABS: ALLEN TEST YES; BLOOD TYPE ARTERIAL; HCO3-(ACT) 19.4 mmoll (20.0-26.0); METHB 0.9 % (0.0-1.5); O2(CT) 14.2 mL/dL (15.0-23.0); O2HB 93.1 % (95.0-99.0); PCO2(98.6) 30 mmHg (35-45); PO2(98.6) 62 mmHg (60-100); SAMPLE BLOOD; SAO2 95.4 % (95.0-100.0); THB 10.8 g/dL (11.5-17.4); pH(98.6) 7.37 (7.35-7.45)
[2019-06-16 21:09] LABS: MODALITY CANNULA
[2019-06-16 21:27] LABS: BASO# 0.01 X1000 (0.0-0.2); BASO% 0.1 % (0.0-0.8); HEMATOCRIT 34.8 % (37.0-47.0); HEMOGLOBIN 11.1 g/dL (12.0-16.0); IMM GRAN# 0.05 X1000 (0.0-0.04); IMM GRAN% 0.3 % (0.0-0.5); LYMPH% 10.5 % (20.5-51.1); MCH 30.5 PG (27-31); MCHC 31.9 g/dL (33-37); MCV 95.6 FL (81-99); MONO# 0.51 X1000 (0.11-0.59); MONO% 3.6 % (1.7-9.3); MPV 11.4 FL (7.4-10.4); NEUT# 12.27 X1000 (1.4-6.5); NEUT% 85.5 % (42.2-75.2); PLT 85 X1000 (130-400); RBC 3.64 XMIL (4.2-5.4); RDW 17.2 % (11.5-14.5); WBC 14.34 X1000 (4.8-10.8)
[2019-06-16 21:31] LABS: ALB/GLOB RATIO 0.7; ALBUMIN 2.1 g/dL (3.5-5.0); CALCIUM 10.7 mg/dL (8.8-10.2); CREATININE 1.5 mg/dL (0.5-0.9); MAGNESIUM 1.8 mg/dL (1.5-2.7); POTASSIUM 4.3 mmol/L (3.5-5.1); TOTAL BILIRUBIN 1.68 mg/dL (0.20-1.00)
[2019-06-16 21:40] LABS: INR 1.76; PROTIME 20.9 Seconds (11.0-16.0)
[2019-06-16 22:00] LABS: BANDS 1 % (0-1); LYMPHS 4 % (21-51); MONO 2 % (1-9); SEGS 93 % (42-75)
[2019-06-16 22:01] LABS: LARGE PLATELETS OCCASIONAL
[2019-06-17] MEDS: NS 1,000 ML IV SCH ×2 (00:21→06:29)
[2019-06-17] MEDS: SYNTHROID PO SCH ×2 (05:19→06:30)
[2019-06-17] MEDS ORDERED: D50W SYRINGE IV ONE (06:01)
[2019-06-17] MEDS ORDERED: NS 500 ML IV ONE (06:03)
[2019-06-17 07:19] LABS: BASO# 0.01 X1000 (0.0-0.2); BASO% 0.1 % (0.0-0.8); HEMATOCRIT 28.6 % (37.0-47.0); IMM GRAN# 0.03 X1000 (0.0-0.04); IMM GRAN% 0.3 % (0.0-0.5); LYMPH# 1.27 X1000 (1.2-3.4); LYMPH% 11.8 % (20.5-51.1); MCH 29.9 PG (27-31); MCHC 31.5 g/dL (33-37); MONO% 2.8 % (1.7-9.3); NEUT# 9.13 X1000 (1.4-6.5); PLT 81 X1000 (130-400); RBC 3.01 XMIL (4.2-5.4); RDW 16.8 % (11.5-14.5); WBC 10.74 X1000 (4.8-10.8)
[2019-06-17 07:28] LABS: INR 1.97; PROTIME 22.9 Seconds (11.0-16.0)
[2019-06-17 07:33] LABS: ALB/GLOB RATIO 0.8; ALBUMIN 1.8 g/dL (3.5-5.0); CALCIUM 9.8 mg/dL (8.8-10.2); CREATININE 1.5 mg/dL (0.5-0.9); MAGNESIUM 1.7 mg/dL (1.5-2.7); POTASSIUM 4.1 mmol/L (3.5-5.1); TOTAL BILIRUBIN 1.46 mg/dL (0.20-1.00); TOTAL PROTEIN 4.2 g/dL (6.3-8.3)
[2019-06-17 07:37] LABS: PTT 48.3 Seconds (22.3-41.8)
[2019-06-17] MEDS ORDERED: VANCOMYCIN IV PER PHARMACY MISC SCH (07:45)
[2019-06-17] MEDS ORDERED: VANCOMYCIN 2,200 MG in NS 500 ML IV ONE (09:00)
[2019-06-17] MEDS ORDERED: VITAMIN K SUBQ ONE (09:07)
[2019-06-17] MEDS: D5 NS 1,000 ML IV SCH ×2 (09:55→14:58)
[2019-06-17] MEDS: NORCO-7.5 PO PRN ×2 (11:15→20:09)
[2019-06-17] MEDS: FOLIC ACID PO SCH (11:30)
--- NOTE | 2019-06-17 12:14 | OPERATIVE NOTE ---
PROCEDURE DATE: 06/17/2019 PREOPERATIVE DIAGNOSES: 1. Septic shock. 2. Poor peripheral access. PROCEDURES PERFORMED: Ultrasound-guided right femoral vein triple-lumen catheter placement. ESTIMATED BLOOD LOSS: 5 mL. SPECIMENS: None. ANESTHESIA: Local. INDICATIONS: This is a female who was admitted with pneumonia, altered mental status, and hypoglycemia. She has very poor peripheral access. She is anticoagulated chronically. OPERATIVE FINDINGS: Focused ultrasound of the right groin showed a compressible femoral vein with no evidence of intraluminal thrombus. OPERATIVE NOTE: The risks, benefits, and alternatives were discussed with the patient and family. She consented to the procedure. The patient's right groin was prepped with chlorhexidine solution and draped in the usual fashion. After time-out, focused ultrasound was performed and the femoral vein was accessed on the first pass. Dark nonpulsatile venous blood was noted on return. The wire threaded easily. Skin lilly was made. We did confirm that the wire coursed directly in the vein with ultrasound prior to dilating the tract, which we then did, and a triple-lumen catheter was advanced. All ports withdrew blood and flushed without resistance. Sterile caps were applied, secured with a silk suture. Dressing was applied. She tolerated it well. No complications. cc: Jaylene Lewis MD
[2019-06-17] MEDS ORDERED: LEVOPHED 8 MG in D5 1/2 NS 250 ML IV SCH (14:15)
[2019-06-17] MEDS: MAXIPIME 2 GM/NS 2 GM/100 ML IVPB IV SCH (14:58)
[2019-06-17] MEDS: LEVAQUIN 250 MG/D5W 250 MG/50 ML IVPB IV SCH (16:36)
--- NOTE | 2019-06-17 16:36 | PROGRESS NOTE ---
DATE: 06/17/2019 SUBJECTIVE: The patient is resting in bed. Not in any obvious distress. OBJECTIVE: Vital Signs: Temperature is 98.3 degrees, pulse 70, respiratory rate 22, blood pressure 150/65, oxygen saturation 97%. HEENT: Atraumatic and normocephalic. Cardiovascular System: S1, S2. Respiratory System: Has evidence of good air entry bilaterally. Abdomen: Soft, nontender. No masses felt. Extremities: No evidence of edema. Central Nervous System: No obvious focal deficits noted. Labs: WBCs 10.74, hematocrit is 28.6, with a platelet count of 81,000. INR is 1.97. Chemistry: Sodium is 145, potassium 4.1, chloride is 107, bicarb is 19, BUN is 21, creatinine is 1.5. CT scan of the chest, abdomen, and pelvis shows evidence of left lower lobe pneumonia, left nephrolithiasis, as well as a fecal impaction. ASSESSMENT AND PLAN: 1. Septic shock. Maintain patient on intravenous fluids as well as antibiotics. Use pressors if needed. Follow up on culture report. 2. Healthcare-associated pneumonia. Obtain sputum culture, blood cultures. Maintain patient on antibiotics. 3. Diabetes mellitus. Maintain patient on sliding scale insulin. Monitor blood sugar levels. 4. History of deep venous thrombosis as well as a pulmonary embolism. The patient does have a Kal filter in place. 5. Thrombocytopenia. This is chronic, going as far back as 2014. 6. Hypothyroidism. Continue levothyroxine. cc: Tonio Terry MD
[2019-06-17 19:01] LABS: URINE SOURCE CLEAN CATCH
[2019-06-17 19:07] LABS: COLOR YELLOW
[2019-06-17 19:08] LABS: BILIRUBIN URINE NEGATIVE (NEGATIVE); BLOOD URINE NEGATIVE (NEGATIVE); CLARITY CLEAR (CLEAR); GLUCOSE URINE NEGATIVE (NEGATIVE); KETONE URINE NEGATIVE (NEGATIVE); LEUKOCYTES URINE NEGATIVE (NEGATIVE); NITRITE URINE NEGATIVE (NEGATIVE); PROTEIN URINE 30 mg/dL (NEGATIVE); SP GRAVITY URINE 1.025; UROBILINOGEN URINE 0.2 EU/dL (0.2-1.0)
[2019-06-17 19:18] LABS: URINE BACTERIA NEGATIVE /HFP; URINE CAST GRANULAR PRESENT /LPF; URINE CRYSTAL NONE SEEN /HPF; URINE EPITHELIAL CELLS <10 /HPF (<10); URINE RBC <10 /HPF (<10); URINE WBC <10 /HPF (<10); URINE YEAST NONE SEEN /HPF
[2019-06-18] MEDS: D5 NS 1,000 ML IV SCH ×5 (06:23→21:58)
[2019-06-18] MEDS: SYNTHROID PO SCH (06:23)
[2019-06-18] MEDS: FOLIC ACID PO SCH (09:15)
--- NOTE | 2019-06-18 09:37 | PROGRESS NOTE ---
DATE: 06/18/2019 SUBJECTIVE: Patient is resting in bed. Not in any obvious distress. OBJECTIVE: Vital Signs: Temperature is 97.3, pulse 67, respirations 18, blood pressure 104/63, oxygen saturation is 95%. HEENT: Atraumatic, normocephalic. She is anicteric. On oral exam, her tongue is coated with whitish material. Neck: No lymphadenopathy or thyromegaly. Cardiovascular System: S1-S2. Respiratory System: Has evidence of good air entry bilaterally. Abdomen: Soft, nontender. No masses felt. Extremities: Has slight edema in both lower extremities. Central Nervous System: No obvious focal deficits noted. Laboratory Data: Blood sugar is 118. ASSESSMENT AND PLAN: 1. Septic shock. Maintain patient on intravenous fluids as well as antibiotics. Use pressors if needed. Follow up on cultures. 2. Healthcare-associated pneumonia. Continue antibiotics. Follow up on sputum as well as blood cultures. 3. Diabetes mellitus. Maintain patient on sliding scale insulin. Monitor blood sugar levels. 4. History of deep venous thrombosis as well as a pulmonary embolism. The patient does have a history of a [place] filter in place. Anticoagulation placed on hold because of a concern of possible gastrointestinal bleeding. If this is ruled out, we can resume anticoagulation. 5. Chronic thrombocytopenia. Aware. 6. Hypothyroidism. Continue levothyroxine. 7. Left nephrolithiasis. The patient is stable. Can follow up with urology in the outpatient. 8. History of A fall. Fall precaution recommended and also physical therapy. Family to decide on usp facility placement. 9. Probable disruption of the lateral collateral ligament of the right knee. We will obtain an MRI of that knee and also get an orthopedic consult. 10. Deep vein thrombosis prophylaxis. Sequential compression devices. 11. Gastrointestinal prophylaxis. Proton pump inhibitor. cc: Tonio Terry MD
[2019-06-18] MEDS: ALBUTEROL NEB INH PRN ×3 (12:02→19:44)
[2019-06-18] MEDS: NORCO-7.5 PO PRN ×2 (14:57→21:36)
[2019-06-18] MEDS: MAXIPIME 2 GM/NS 2 GM/100 ML IVPB IV SCH (15:25)
[2019-06-18] MEDS: LEVAQUIN 250 MG/D5W 250 MG/50 ML IVPB IV SCH (16:45)
[2019-06-18] MEDS ORDERED: QUESTRAN PO PRN (19:00)
[2019-06-18] MEDS ORDERED: VANCOMYCIN 1,900 MG in NS 500 ML IV SCH (21:00)
[2019-06-19] MEDS: D5 NS 1,000 ML IV SCH (05:08)
[2019-06-19] MEDS: SYNTHROID PO SCH (06:02)
[2019-06-19] MEDS: PRILOSEC PO SCH (06:02)
[2019-06-19] MEDS: NORCO-7.5 PO PRN ×3 (07:04→20:48)
--- NOTE | 2019-06-19 07:41 | Diag Imaging Result Doc PS360 ---
EXAM: CHEST-1 VIEW INDICATION: pneumonia TECHNIQUE: One view COMPARISON: 06/15/2019 FINDINGS: There has been development of a fairly large left pleural effusion. Atelectasis and/or infiltrate at the left mid and lower lung zone has worsened. There is mild subsegmental atelectasis that has developed the right lung base. There is pulmonary venous congestion that appears to have worsened. Cardiac silhouette is essentially stable. IMPRESSION: Interval worsening as described. Electronically signed by Miguel Hart 06/19/2019 7:39 AM
[2019-06-19 08:45] LABS: INR 1.28; PROTIME 16.2 Seconds (11.0-16.0)
[2019-06-19 09:09] LABS: BASO# 0.01 X1000 (0.0-0.2); BASO% 0.2 % (0.0-0.8); EOS# 0.08 X1000 (0.0-0.7); EOS% 1.8 % (0.0-10.0); HEMATOCRIT 30.1 % (37.0-47.0); HEMOGLOBIN 9.4 g/dL (12.0-16.0); IMM GRAN# 0.02 X1000 (0.0-0.04); IMM GRAN% 0.5 % (0.0-0.5); LYMPH# 0.72 X1000 (1.2-3.4); LYMPH% 16.6 % (20.5-51.1); MCH 29.4 PG (27-31); MCHC 31.2 g/dL (33-37); MCV 94.1 FL (81-99); MONO% 4.6 % (1.7-9.3); MPV 11.6 FL (7.4-10.4); NEUT# 3.32 X1000 (1.4-6.5); NEUT% 76.3 % (42.2-75.2); PLT 65 X1000 (130-400); RDW 17.5 % (11.5-14.5); WBC 4.35 X1000 (4.8-10.8)
[2019-06-19 09:23] LABS: ALB/GLOB RATIO 0.7; ALBUMIN 1.9 g/dL (3.5-5.0); CALCIUM 9.5 mg/dL (8.8-10.2); CREATININE 1.1 mg/dL (0.5-0.9); POTASSIUM 3.5 mmol/L (3.5-5.1); TOTAL BILIRUBIN 0.96 mg/dL (0.20-1.00); TOTAL PROTEIN 4.6 g/dL (6.3-8.3)
[2019-06-19] MEDS: FOLIC ACID PO SCH (09:28)
[2019-06-19] MEDS ORDERED: LASIX IV ONE (10:47)
[2019-06-19] MEDS: ALBUTEROL NEB INH PRN ×3 (11:09→19:31)
--- NOTE | 2019-06-19 13:56 | ORTHOPAEDICS CONSULTATION ---
DATE: 06/19/2019 REASON FOR CONSULTATION: Continued right knee pain. HISTORY OF PRESENT ILLNESS: Ms. Camejo is a 73-year-old female with a past medical history of diabetes type 2, hypertension, hyperlipidemia, obesity, and a history of PE and DVT, who presented to the [facility] Emergency Room after a fall. The patient's family states that she was getting increasingly confused and fell out of the bed. She was found pretty quickly and was brought to the emergency department. In the ER, she was found to have low blood sugar. At her time in the ER, she continued to complain of right knee pain. An x-ray was taken that showed she had a total knee arthroplasty implant in. There was no fracture or dislocation identified. She has continued to complain of pain to this right knee. She is currently in the ICU where she is receiving antibiotics and pressors for hospital-acquired pneumonia and septic shock. She is still complaining of the knee, so orthopedics has been consulted for management of the right knee pain. PAST MEDICAL HISTORY: 1. Diabetes mellitus type 2. 2. Primary essential hypertension. 3. Hyperlipidemia. 4. Morbid obesity. 5. Sickle cell trait. 6. DVT. 7. Pulmonary embolism. PAST SURGICAL HISTORY: 1. Right total knee arthroplasty. 2. Left hip surgery. 3. Hernia repair. ALLERGIES: 1. Penicillin. 2. Cardizem. 3. Ibuprofen. CURRENT MEDICATIONS: 1. Albuterol nebulizers every 4 hours. 2. Eliquis 5 mg p.o. b.i.d. 3. Celebrex 50 mg p.o. every morning. 4. Folic acid 1 mg p.o. daily. 5. Synthroid 25 mcg p.o. every morning. 6. Losartan 50 mg p.o. b.i.d. 7. Metformin 500 mg p.o. b.i.d. 8. Robaxin 500 mg p.o. b.i.d. SOCIAL HISTORY: She is a former smoker. She denies alcohol or illicit drug use. She is mostly bed bound. FAMILY HISTORY: Noncontributory. REVIEW OF SYSTEMS: A 10-point review of systems was completed and negative except for what was mentioned in the HPI. PHYSICAL EXAMINATION: Vital Signs: Her temp is 97.4 degrees, pulse 76, respirations 22, blood pressure 102/45. She is 97% on 3 L. General: This is a confused and obese 73-year-old female who is resting comfortably. HEENT: Head is atraumatic, normocephalic. Pupils equal, round, react to light. Cardiovascular: Regular rate and rhythm. Pulmonary: Breathing is even unlabored. Abdomen: Soft, obese. Extremities: She does have an odd body habitus. The right knee is very large, but does not appear to have a significant effusion. She does have some crepitus with knee range of motion. She does do some facial grimacing when I do range of motion to the knee. She does facial grimace when I palpate on the lateral aspect of the joint line. She has good sensation to the foot. She is able to move the toes. She does follow commands to that aspect. She has a 1+ pedal pulse. She does have some lower extremity edema. IMAGING: An x-ray of the right knee shows no obvious fracture or diastasis. The implant appears stable. There is some concern that there is some diastasis of the lateral joint space between the femoral and tibial prosthesis. ASSESSMENT: Right knee pain, status post right total knee arthroplasty. PLAN: Ms. Camejo is minimally ambulatory. At this point, we will put her in a knee immobilizer to try to reduce some of her pain. Unfortunately, an immobilizer may be difficult to get on over her thigh. So, we will attempt this first and see how she tolerates it. We will do this over the next couple of weeks. We will watch the skin and make sure she does not develop any wounds, and she will followup as an outpatient with Dr. Bennett in the office at [facility]. Hopefully, as she progresses, we will be able to get her into some therapy. There was an MRI ordered; however, with her total knee implant, we do not believe this will provide us with very much information, so we have canceled the MRI today. Dr. Bennett is available if needed. Thank you for the consult. Dictated by GAYLE Orellana for Prashant Bennett MD cc: GAYLE Orellana MD
[2019-06-19] MEDS: MAXIPIME 2 GM/NS 2 GM/100 ML IVPB IV SCH (14:45)
[2019-06-19] MEDS: LEVAQUIN 750 MG/D5W 750 MG/150 ML IVPB IV SCH (16:17)
--- NOTE | 2019-06-19 18:51 | PROGRESS NOTE ---
DATE: 06/19/2019 INTERVAL HISTORY: The patient remains fairly encephalopathic. Is still requiring a little bit of Levophed. Remains afebrile. No other acute events overnight. REVIEW OF SYSTEMS: Unable to obtain secondary to patient's mental status. LABS: WBCs 4.3, hemoglobin 9.4, hematocrit 30.1, platelets 65. INR 1.28. Sodium 143, potassium 3.5, bicarb 14, BUN 18, creatinine 1.1, glucose 124 to 185. BNP 1181. IMAGING: Chest x-ray with fairly large left pleural effusion which is new. Continued infiltrate at the left mid lower lung which is possibly also slightly worse. Worse pulmonary venous congestion as well. VITALS: T-max 98.3, pulse 79, respirations 23, blood pressure 88/57, O2 saturation 93% on 3 L by nasal cannula. PHYSICAL EXAMINATION: General: No acute distress. Vitals: As above. HEENT: Normocephalic, atraumatic. Cardiovascular: Regular rate and rhythm. No murmurs noted. Pulmonary: Fairly decreased on the left with few scattered crackles. A little bit of crackles at the right base as well. Extremities: Peripheral pulses intact. Trace to 1+ bilateral lower extremity edema. Neurologic: Limited by patient's mental status but no obvious focal deficits. Psychiatric: The patient arouses to noxious stimuli but is nonverbal and does not respond to commands. ASSESSMENT AND PLAN: 1. Septic shock, healthcare-associated pneumonia. Encephalopathy, essentially unchanged. Afebrile and with no longer any leukocytosis, although her white count seems to bounce up and down precipitously. I think she is doing okay from a pneumonia standpoint on current vancomycin and cefepime, but appears to be trying to get volume overloaded. Still on a little bit of Levophed, which is slightly concerning, but is on significantly less Levophed than she was previously. If we are not able to get her off Levophed in the next day or 2, then may consider an Infectious Disease consult and/or antibiotic change to Merrem and Zyvox. 2. Metabolic encephalopathy, likely due to acute illness, but if it persists once her other issues are addressed, then may need further neurologic workup. 3. Volume overload, likely acute on chronic diastolic congestive heart failure. BNP elevated. Initial plan was to get echo, but microcomputer technician called and stated that she had a recent echocardiogram at [place] which showed normal ejection fraction but grade 2 diastolic failure. The patient is approximately 10 L positive for this hospitalization. I strongly suspect that she has gotten volume overloaded. D5 was discontinued, and the patient was given a dose of Lasix. We will see how she responds to that and make a decision on further diuresis tomorrow. Recheck chest x-ray in the morning, and if large left pleural effusion persist with diuresis, then may need thoracentesis. Given patient's near morbid obesity, would prefer to do it with diuretics if possible. 4. Hypoglycemia. The patient is a diabetic by history, and has had trouble with hypoglycemia here. Was requiring D5 for couple days. D5 was discontinued this morning, and blood glucose has been reasonable since then. Continue to monitor. Hold any sliding scale for now and see how she does. 5. Decubitus ulcers. Did not appear infected on last check. Continue to monitor. 6. Chronic thrombocytopenia. Platelets normal initially, but on looking back in her history, she has almost always had platelets in the 80s to low 100s. Has had slight downtrend over the last few days. Eliquis is on hold. She has not been on any Lovenox or heparin, so heparin- induced thrombocytopenia does not appear to be a concern. Continue to monitor platelets. 7. Hypothyroidism. Continue Synthroid. 8. Chronic kidney disease stage 3. The patient had a little bit of bump in creatinine just after admission but is back to baseline now. Creatinine 1.1 today. Continue to monitor.
[2019-06-20] MEDS: BLISTEX MEDICATED BERRY LIP BALM TOP PRN (01:04)
[2019-06-20] MEDS: NORCO-7.5 PO PRN ×3 (01:07→14:38)
[2019-06-20] MEDS: SYNTHROID PO SCH (06:00)
[2019-06-20] MEDS: PRILOSEC PO SCH (06:00)
--- NOTE | 2019-06-20 07:21 | Diag Imaging Result Doc PS360 ---
EXAM: CHEST-PORTABLE 06/20/2019 HISTORY: hypoxia. pneumonia, effusions. TECHNIQUE: AP portable at 0532 COMMENT: Compared to 06/19/2019 the pleural effusion on the left has diminished or at least redistributed the way from the upper portion of the chest. The atelectasis which was previously present over the right base has resolved. There continues to be retrocardiac opacity on the left which is presumably due to atelectasis or pneumonia. IMPRESSION: Improved right basilar atelectasis and left pleural effusion. Electronically signed by Alan Eastman 06/20/2019 7:19 AM
--- NOTE | 2019-06-20 08:14 | PROGRESS NOTE ---
DATE: 06/20/2019 SUBJECTIVE: This patient is still in bed. It looks like she is bedbound. She has an ulcer on her back, but she is refusing me to move her to see the ulcer due to pain, which it looks is generalized, especially at the level of the lower extremities. She is still on vasopressors. I will stop the vancomycin and I will put this patient on linezolid, she has chronic kidney disease. I will continue with cefepime and she has been placed also on levofloxacin. If she is still on vasopressors tomorrow, I will ask Infectious Disease Department to evaluate this patient. Her white blood cell count yesterday was 4.3. Pending CMP today. It looks like she has a decent urine output but she received a dose. As per the nurse, she has been refusing to be bathed, wound care and mobilization. Chest x-ray showed an improved right basilar atelectasis and left pleural effusion. For her constipation, I will put this patient on MiraLAX and I will start her also on Dulcolax suppository. OBJECTIVE: Vital Signs: Temperature 98.7 degrees, pulse 86, respiratory rate 18, blood pressure 107/74, oxygen saturation 94% on 2 L of nasal cannula. HEENT: Head normocephalic, no trauma. PERRLA. Neck: Supple. No JVD. No masses. Central trachea. Chest: Decreased breath sounds globally. She has bilateral base rhonchi and some crackles as well. Extremities: Trace to 1+ bilateral lower extremity edema. No clubbing. Both legs are rotated externally with a lot of pain with movement. It looks like she had a previous knee replacement bilaterally as well and again, she is complaining with palpation and movement. Skin: Apparently she has a back ulcer but does not allowed me to move her because of pain and check on that, but apparently it was clean and as per the nurse, she cleaned that during the night. Neurological: At this point is limited because of her mental status. She is able to say her name, she told me her date of . She is following commands on and off. No obvious focal deficits. LABORATORY DATA: Pending CMP at this moment. Blood sugar 107. ASSESSMENT AND PLAN: 1. Septic shock, likely due to pneumonia, healthcare-associated pneumonia. The leukocytosis resolved. I will stop the vancomycin and put her on Zyvox due to her chronic kidney disease. She is still coughing but as per the patient, nothing is coming up. She is still on vasopressors. 2. Metabolic encephalopathy, likely due to the infectious process. Likely this is infectious encephalopathy. We will continue with the same management. I am not quite sure if this patient has a baseline dementia, no family members at the bedside. 3. Fluid overload. Apparently there is an echo that showed a normal ejection fraction but grade 2 diastolic failure at [facility]. She received some diuretics yesterday. X-ray looks better. 4. Hypoglycemia, resolved. 5. Decubitus ulcers. Apparently they are not infected. We will continue to monitor. She has been refusing care though. 6. Chronic thrombocytopenia. I will recheck her platelet count tomorrow. 7. Anemia, seems to be stable. I will ask for the anemia workup. 8. Hypothyroidism. Continue with Synthroid. 9. Chronic kidney disease. Creatinine yesterday was 1.1, which looks her baseline. She received a dose of Lasix. Pending CMP today. 10. Constipation. I will start this patient on MiraLAX and also Dulcolax suppositories. 11. History of deep venous thrombosis and pulmonary embolism. It looks like she has been on Eliquis twice a day which has been stopped due to her low platelet count. I will monitor just for today. It looks like she is bed-bound. I will also ask for a CBC today and if the platelet count is stable or at least baseline, I will put her back on her Eliquis. No family members at the bedside. Given her morbid obesity and immobility, this patient is at risk of getting more complications. I will continue with same management for now. I will stop the vancomycin and put her on Zyvox. If tomorrow this patient is still on vasopressors, I will go ahead and ask Infectious Disease Department to evaluate this patient. Wound Care is already on board. She has been refusing wound care, though. She is tolerating some p.o. We will monitor for now. CRITICAL CARE TIME: 35 minutes. cc: Maged Huerta MD
[2019-06-20] MEDS: ZYVOX 600 MG/D5W 600 MG/300 ML IVPB IV SCH ×2 (08:15→18:54)
[2019-06-20] MEDS: ALBUTEROL NEB INH PRN (08:20)
[2019-06-20 08:45] LABS: BASO# 0.01 X1000 (0.0-0.2); BASO% 0.1 % (0.0-0.8); EOS# 0.09 X1000 (0.0-0.7); HEMATOCRIT 32.9 % (37.0-47.0); HEMOGLOBIN 10.4 g/dL (12.0-16.0); IMM GRAN# 0.06 X1000 (0.0-0.04); IMM GRAN% 0.7 % (0.0-0.5); LYMPH# 1.56 X1000 (1.2-3.4); LYMPH% 17.4 % (20.5-51.1); MCH 29.9 PG (27-31); MCHC 31.6 g/dL (33-37); MCV 94.5 FL (81-99); MONO# 0.68 X1000 (0.11-0.59); MONO% 7.6 % (1.7-9.3); MPV 12.3 FL (7.4-10.4); NEUT# 6.59 X1000 (1.4-6.5); NEUT% 73.2 % (42.2-75.2); PLT 85 X1000 (130-400); RBC 3.48 XMIL (4.2-5.4); RDW 17.9 % (11.5-14.5); WBC 8.99 X1000 (4.8-10.8)
[2019-06-20] MEDS: DULCOLAX PR SCH ×3 (08:46→21:29)
[2019-06-20] MEDS: FOLIC ACID PO SCH (08:46)
[2019-06-20] MEDS: MIRALAX PO SCH (08:47)
[2019-06-20 09:08] LABS: ALB/GLOB RATIO 0.7; ALBUMIN 2.2 g/dL (3.5-5.0); CALCIUM 9.8 mg/dL (8.8-10.2); CREATININE 1.2 mg/dL (0.5-0.9); POTASSIUM 3.6 mmol/L (3.5-5.1); TOTAL BILIRUBIN 1.25 mg/dL (0.20-1.00); TOTAL PROTEIN 5.3 g/dL (6.3-8.3)
[2019-06-20] MEDS: MAXIPIME 2 GM/NS 2 GM/100 ML IVPB IV SCH (14:45)
[2019-06-20] MEDS: ELIQUIS PO SCH ×2 (15:30→21:18)
[2019-06-20] MEDS: D50W SYRINGE IV PRN (20:55)
[2019-06-21] MEDS: D50W SYRINGE IV PRN (06:05)
[2019-06-21] MEDS: ZYVOX 600 MG/D5W 600 MG/300 ML IVPB IV SCH ×2 (06:23→18:33)
[2019-06-21] MEDS: PRILOSEC PO SCH (06:28)
[2019-06-21] MEDS: SYNTHROID PO SCH (06:29)
[2019-06-21 07:05] LABS: BASO# 0.01 X1000 (0.0-0.2); BASO% 0.1 % (0.0-0.8); EOS# 0.06 X1000 (0.0-0.7); EOS% 0.9 % (0.0-10.0); HEMATOCRIT 29.1 % (37.0-47.0); HEMOGLOBIN 9.4 g/dL (12.0-16.0); IMM GRAN# 0.03 X1000 (0.0-0.04); IMM GRAN% 0.4 % (0.0-0.5); LYMPH# 1.05 X1000 (1.2-3.4); LYMPH% 14.9 % (20.5-51.1); MCH 29.7 PG (27-31); MCHC 32.3 g/dL (33-37); MCV 91.8 FL (81-99); MONO% 8.5 % (1.7-9.3); NEUT# 5.29 X1000 (1.4-6.5); NEUT% 75.2 % (42.2-75.2); PLT 66 X1000 (130-400); RBC 3.17 XMIL (4.2-5.4); RDW 17.1 % (11.5-14.5); WBC 7.04 X1000 (4.8-10.8)
[2019-06-21 07:06] LABS: AGAP 9; ALB/GLOB RATIO 0.7; ALKALINE PHOSPHATASE 130 U/L (32-104); BUN 22 mg/dL (8-22); CALCIUM 9.7 mg/dL (8.8-10.2); CHLORIDE 117 mmol/L (98-107); COSMO 282; CREATININE 1.2 mg/dL (0.5-0.9); ESTIMATED GFR 53; GLUCOSE 53 mg/dL (70-104); GOT 44 U/L (10-30); GPT 34 U/L (10-36); MAGNESIUM 1.4 mg/dL (1.5-2.7); PHOSPHORUS 1.2 mg/dL (2.7-4.5); POTASSIUM 3.6 mmol/L (3.5-5.1); SODIUM 141 mmol/L (136-145); TCO2 15 mmol/L (25-35); TOTAL BILIRUBIN 1.55 mg/dL (0.20-1.00); TOTAL IRON 59 ug/dL (49-151); UNBOUND IRON < 1 ug/dL (112-346)
--- NOTE | 2019-06-21 07:19 | Diag Imaging Result Doc PS360 ---
EXAM: CHEST-PORTABLE 06/21/2019 HISTORY: dyspnea TECHNIQUE: AP portable at 0549 COMMENT: There is atelectasis in the lingula and left lower lobe. This was also present at the time the previous study of 06/20/2019. IMPRESSION: Atelectasis versus pneumonia in the lingula and left lower lobe. Electronically signed by Alan Eastman 06/21/2019 7:17 AM
[2019-06-21] MEDS ORDERED: POTASSIUM PHOSPHATE IV ONE (07:23)
[2019-06-21] MEDS ORDERED: MAGNESIUM SULFATE 2 GM/S.W.I. 2 GM/50 ML IVPB IV ONE (07:23)
[2019-06-21] MEDS ORDERED: NS IV ONE (07:23)
[2019-06-21 07:41] LABS: FERRITIN 2061 ng/mL (13-150)
[2019-06-21] MEDS ORDERED: POTASSIUM PHOSPHATE 21 MMOL in NS 250 ML IV ONE (07:46)
[2019-06-21] MEDS: NORCO-7.5 PO PRN ×2 (07:52→20:12)
[2019-06-21] MEDS: ELIQUIS PO SCH ×2 (08:00→20:12)
[2019-06-21] MEDS: FOLIC ACID PO SCH (08:00)
[2019-06-21] MEDS: MIRALAX PO SCH (08:00)
[2019-06-21] MEDS: LEVAQUIN 750 MG/D5W 750 MG/150 ML IVPB IV SCH (08:02)
[2019-06-21] MEDS: DULCOLAX PR SCH ×2 (08:03→20:12)
--- NOTE | 2019-06-21 08:23 | PROGRESS NOTE ---
DATE: 06/21/2019 SUBJECTIVE: Patient is still lying in bed. She is still confused. She is no longer on pressors. It looks like they were stopped yesterday at 3 p.m. She has been refusing eating and medications. She also has been refusing to clean her pressure ulcer. Since she is not eating too much, I will start this patient on Clinimix. Her magnesium and phosphorus are low so I will replace it. No bowel movement so far. I have ordered an enema and physical therapy for range of motion. Like I said, she is still confused. OBJECTIVE: Vital Signs: Temperature 97.3 degrees, pulse 100, respiratory rate 23, blood pressure 80/59 at 6:16 a.m. but at this moment, it is more than 110/80. Oxygen saturation 93 on room air. HEENT: Head normocephalic. No trauma. PERRLA. Neck: Supple. No JVD. No masses. Central trachea. Chest: Decreased breath sounds globally. Bilateral rhonchi at the bases with mild crackles at the left base. Extremities: Trace bilateral lower extremity edema. No clubbing. Both legs are rotated externally with a lot of pain with movement. It looks like she had a previous knee replacement bilaterally as well and she is complaining of pain upon palpation. She has a back ulcer. Neurological: Examination is limited because of her mental status. She is able to say her name. She is not able to say her date of . She is not oriented to time or place. She is following simple commands on and off. She seems to be swallowing fine. Laboratory: WBC 7, hemoglobin 9.4, hematocrit 29.1, platelets 66,000. Sodium 141, potassium 3.6, chloride 117, bicarbonate 15, BUN 22, creatinine 1.2, glucose 53, calcium 9.7, phosphorus 1.2, magnesium 1.4. ASSESSMENT AND PLAN: 1. Septic shock, likely due to healthcare-associated pneumonia. Her leukocytosis resolved. I stopped the vancomycin and put her on Zyvox. She is no longer on vasopressors. I have requested an evaluation by infectious disease department. This seems to be a little bit better but she is still confused. 2. Metabolic encephalopathy, which is likely due to the infectious process. Like I said, this is likely infectious encephalopathy. We will continue with the same management. 3. Fluid overload. Apparently, there is an echocardiogram that showed a normal ejection fraction but grade 2 diastolic failure, at [facility]. This has been notified apparently by our echocardiogram team here. She received some diuretics 2 days ago. X-ray looks better. 4. Left lower lobe pneumonia, as per #1. 5. Hypoglycemia. She is still having some episodes of hypoglycemia. Basically, this patient is not eating too much. I will put this patient on Clinimix. 6. Decubitus ulcers. Apparently, they are not infected. I have requested an evaluation by infectious disease department. She has been refusing care on and off. 7. Chronic thrombocytopenia. Continue to monitor. 8. Anemia, seems to be stable. I will ask for the anemia workup but is pending at this moment. 9. Hypothyroidism. Continue with Synthroid. 10. Chronic kidney disease. Creatinine seems to be at her baseline. I will start this patient on Clinimix. 11. Constipation. She is getting MiraLAX and also Dulcolax suppositories. I will add a time-one dose of enema. 12. History of deep vein thrombosis and pulmonary embolism. She has been taking Eliquis twice a day. I have placed this treatment back. She has been chronically thrombocytopenic and she has been taking this treatment so I will continue with this. Basically, she is bedbound. 13. Yesterday, I had a large conversation with her daughter at the bedside. We discussed her advanced directive for at least 20 minutes. For now, she wants this patient to be Full Code and do everything we can. I also talked to the daughter about placing a nasogastric tube if she is not eating too much or at all, and she agreed with that but today, I will start with Clinimix and we will re-evaluate this patient in the near future. She does not look dehydrated but since she is not eating, I will start this patient on Clinimix. I have requested also an evaluation by infectious disease department. 14. Hypomagnesemia and hypophosphatemia. I will replace it. CRITICAL CARE TIME: 35 minutes. cc: Maged Huerta MD
[2019-06-21] MEDS: CLINIMIX E 4.25%-5% SOLUTION 1,000 ML IV SCH ×2 (08:45→18:34)
--- NOTE | 2019-06-21 09:32 | INFECTIOUS DISEASE CONSULT REP ---
DATE: 06/21/2019 CONCLUSION: The patient is unable to provide a history. No family member is present. The information I obtained was from the computer. The patient has a left lung pneumonia, and she has an altered mental status. I think the patient's pneumonia is improving because the white blood cell count now is normal, and it was elevated, and also the patient was on pressors, and now she is off of them. She does have an altered mental status, and that may well be due to the pneumonia, or there could be some other reason, but the patient has refused to have a CT scan or MRI done. The patient's altered mental status possibly could be due to an adverse reaction to cefepime. RECOMMENDATIONS: I would suggest continuing with the current antibiotics, namely cefepime, Levaquin, and Zyvox. Tomorrow, if the patient still has an altered mental status, I am going to discontinue cefepime, and put the patient on ceftazidime. DISCUSSION: The patient did not supply a history as mentioned above. She fell at home, and she was admitted in the hospital to ICU. She had an altered mental status and she was hypotensive. She has been put on antibiotics. Initially, she was on pressors as well. The patient's lab studies for today show a CBC with a white count of 7040, hemoglobin 9.4, and platelet count 66,000. Creatinine is 1.2. GFR is 53. Alkaline phosphatase is 130. Blood cultures are negative. Chest x-ray shows left lung pneumonia/atelectasis. CT scan of the chest, abdomen, and pelvis shows that there is left lower lobe pneumonia. PAST MEDICAL HISTORY: Positive for diabetes mellitus, hypertension, hyperlipidemia, obesity, sickle cell trait, hypothyroidism, and history of deep venous thrombosis with pulmonary embolus. PAST SURGICAL HISTORY: Positive for right knee surgery, left hip surgery, and hernia repair. ALLERGIES: The patient is allergic to penicillin, diltiazem, and ibuprofen. The patient now is on cefepime, and she is tolerating it well. MEDICATIONS: Medications taken at home include albuterol inhaler, Eliquis, Celebrex, Synthroid, Cozaar, metformin, and Robaxin. PHYSICAL EXAMINATION: Vital Signs: Temperature is 98 degrees, pulse 100, respirations 23, blood pressure is 80/59. The patient is 5 feet 7 inches tall, weighs 249 pounds. General: This is an obese, elderly female. She has an altered mental status. HEENT: I did not notice any drainage from the nose or the ears. I did not see any white patches in her mouth. Neck: No meningismus. Lungs: Clear to auscultation. Cardiovascular: Heart rate is regular. Abdomen: Soft and nontender. Extremities: The right leg is in a long splint. Neurologic: The patient is awake. She did not follow request to move her extremities. She did not have a tremor. Integument: Sacral excoriations. Thank you for the consult. cc: Richi Mcgill MD MTDD
[2019-06-21 10:58] LABS: LYMPHS 12 % (21-51); MONO 8 % (1-9); SEGS 80 % (42-75)
[2019-06-21] MEDS: MAXIPIME 2 GM/NS 2 GM/100 ML IVPB IV SCH (13:33)
[2019-06-21] MEDS: ALBUTEROL NEB INH PRN (21:30)
[2019-06-22] MEDS: NORCO-7.5 PO PRN ×3 (03:27→20:25)
[2019-06-22] MEDS: CLINIMIX E 4.25%-5% SOLUTION 1,000 ML IV SCH ×3 (03:27→18:23)
[2019-06-22] MEDS: SYNTHROID PO SCH (06:07)
[2019-06-22] MEDS: PRILOSEC PO SCH (06:07)
[2019-06-22 06:22] LABS: BASO# 0.01 X1000 (0.0-0.2); BASO% 0.2 % (0.0-0.8); EOS# 0.12 X1000 (0.0-0.7); HEMATOCRIT 26.9 % (37.0-47.0); HEMOGLOBIN 8.7 g/dL (12.0-16.0); IMM GRAN# 0.04 X1000 (0.0-0.04); IMM GRAN% 0.7 % (0.0-0.5); LYMPH# 0.97 X1000 (1.2-3.4); LYMPH% 16.2 % (20.5-51.1); MCH 29.3 PG (27-31); MCHC 32.3 g/dL (33-37); MCV 90.6 FL (81-99); MONO# 0.57 X1000 (0.11-0.59); MONO% 9.5 % (1.7-9.3); NEUT# 4.29 X1000 (1.4-6.5); NEUT% 71.4 % (42.2-75.2); PLT 63 X1000 (130-400); RBC 2.97 XMIL (4.2-5.4); RDW 16.9 % (11.5-14.5)
[2019-06-22] MEDS: ZYVOX 600 MG/D5W 600 MG/300 ML IVPB IV SCH ×2 (06:44→18:16)
[2019-06-22 07:02] LABS: ALB/GLOB RATIO 0.7; CALCIUM 9.9 mg/dL (8.8-10.2); CREATININE 1.1 mg/dL (0.5-0.9); MAGNESIUM 1.9 mg/dL (1.5-2.7); PHOSPHORUS 2.1 mg/dL (2.7-4.5); TOTAL BILIRUBIN 1.24 mg/dL (0.20-1.00); TOTAL PROTEIN 4.8 g/dL (6.3-8.3)
--- NOTE | 2019-06-22 07:20 | Diag Imaging Result Doc PS360 ---
EXAM: CHEST-PORTABLE HISTORY: dyspnea TECHNIQUE: Single view COMPARISON: 06/21/2019 FINDINGS: There are infiltrates in the mid and lower left lung. These are actually slightly more prominent in the mid left lung. No improvement in the left base. There is a small left pleural effusion. Mild pulmonary edema and cardiomegaly remain. IMPRESSION: Mild interval worsening Electronically signed by Adam Munoz 06/22/2019 7:17 AM
--- NOTE | 2019-06-22 07:23 | INFECTIOUS DISEASE PROGRESS NO ---
DATE: 06/22/2019 PRESENT ILLNESS: The patient has a left lower lobe pneumonia. She also has an altered mental status. The altered mental status could be due to the patient just having pneumonia. Also, I think it is possible her altered mental status might be due to a medication. The 2 that I think it could be would be Levaquin and/or cefepime. MEDICATION: Zyvox, cefepime, and Levaquin. PHYSICAL EXAMINATION: Vital Signs: Temperature is 98 degrees, pulse 75, respirations 25, blood pressure 113/79. Generally: This is an ill-appearing elderly female. She is in no acute distress. Head/Eyes/Ears/Nose/Throat: She appeared to be able to hear my spoken words and see near objects. I did not notice any white coating on her tongue. Neck: She did not seem to have any pain when she turned her neck. Lungs: Clear to auscultation. Cardiovascular: Regular heart rate. Abdomen: Soft and nontender. Neurologic: The patient did respond to verbal stimuli. She did not answer any of my questions. LAB AND X-RAY: There is a chest x-ray that was done this morning. To my reading, she appears to have a left lower lobe pneumonia; however, the radiologist has not officially put a reading into the computer. CBC shows a white count of 6000, hemoglobin 8.7, and platelet count 63,000. Creatinine is 1.2, GFR is 53. ASSESSMENT AND PLAN: Patient has pneumonia with an altered mental status. I am going to discontinue Levaquin and cefepime and add ceftazidime. I will continue with Zyvox. COMORBIDITIES: Diabetes mellitus, obesity, sickle cell trait, history of deep venous thrombosis with pulmonary embolus. cc: MD LISHA Chowdhury
[2019-06-22] MEDS ORDERED: LASIX IV ONE (07:52)
[2019-06-22] MEDS: ALBUTEROL NEB INH PRN ×2 (08:23→15:54)
[2019-06-22] MEDS: TAZIDIME 1 GM in NS 50 ML IV SCH ×2 (08:36→18:16)
--- NOTE | 2019-06-22 08:37 | PROGRESS NOTE ---
DATE: 06/22/2019 SUBJECTIVE: This patient is still lying in bed. She seems to be better compared with yesterday. She is answering to some of my questions. She has been following commands today most of the time. She is able to say her name, date of , and also her location. She is not oriented to time. She was able to eat part of the breakfast today as well. Infectious Disease Department evaluated this patient. They have been adjusting her antibiotics, but we will continue with the same management for now. Her BUN increased a little bit compared with yesterday, so we will continue with the Clinimix. She does not seem to be overloaded. Her magnesium level is normal today, and the phosphorus level a little bit low, but I will monitor for now. OBJECTIVE: Vital Signs: Temperature 97.8 degrees, pulse 75, respiratory rate 25, blood pressure 113/79, oxygen saturation 100% on room air. HEENT: Head normocephalic, no trauma. PERRLA. Neck: Supple. No JVD. No masses. Central trachea. Chest: Decreased breath sounds globally. Bilateral rhonchi at the bases with mild crackles on the left side. Extremities: Trace lower extremity edema. No clubbing. No cyanosis. Both legs are externally rotated with a lot of pain with movement, but she is able to wiggle her toes. She had a previous knee replacement bilaterally. Neurological: The patient is awake. She is following commands. She is able to say her name. She knows she is in the hospital. She is not oriented to time. She has been following commands more consistently, but she is still confused. LABORATORY: WBC 6, hemoglobin 8.7, hematocrit 26.9, platelets 63,000. Sodium 142, potassium 4, chloride 115, bicarbonate 15, BUN 26, creatinine 1.1, glucose 183, calcium 9.9, phosphorus 2.1, magnesium 1.9, AST 50, ALT 32, alkaline phosphatase 146. ASSESSMENT AND PLAN: 1. Septic shock, likely due to healthcare-associated pneumonia. Her leukocytosis resolved. Infectious Disease Department on board. They have been modifying her medication. We will continue with the same management. She seems to be less confused. 2. Metabolic encephalopathy. This is getting better. We will continue with same management. 3. Fluid overload. Apparently, she has an echocardiogram that showed a normal ejection fraction but grade 2 diastolic dysfunction. She has not been eating for the past couple days, so I started this patient on Clinimix, which I have decreased the dose. I will give her a low dose of Lasix today to see how she does. We will monitor. 4. Left lower lobe pneumonia, per number 1. 5. Hypoglycemia, this is better. 6. Decubitus ulcers. Continue with same management. Wound care on board. Continue antibiotics. 7. Chronic thrombocytopenia. Continue to monitor. 8. Anemia. She seems to be stable. The hemoglobin dropped from 9.4 to 8.7. 9. Chronic thrombocytopenia. We will monitor. 10. Hypothyroidism. Continue with Synthroid. 11. Chronic kidney disease. Creatinine seems to be at her baseline. I will continue with Clinimix. 12. Constipation, resolved. Continue with stool softener. 13. History of deep vein thrombosis and pulmonary embolism. She has been taking Eliquis twice a day at home. I put this patient back on that treatment, and I will continue monitoring her thrombocytopenia. This patient is basically bed bound. 14. Hypomagnesemia and hypophosphatemia, better. TIME SPENT: Critical care time was 30 minutes. cc: Maged Huerta MD
[2019-06-22] MEDS: ELIQUIS PO SCH ×2 (08:43→20:00)
[2019-06-22] MEDS: MIRALAX PO SCH (08:43)
[2019-06-22] MEDS: FOLIC ACID PO SCH (08:44)
[2019-06-23] MEDS: TAZIDIME 1 GM in NS 50 ML IV SCH ×3 (00:29→17:31)
[2019-06-23] MEDS: CLINIMIX E 4.25%-5% SOLUTION 1,000 ML IV SCH (04:45)
[2019-06-23] MEDS: ZYVOX 600 MG/D5W 600 MG/300 ML IVPB IV SCH ×2 (06:15→19:02)
[2019-06-23] MEDS: PRILOSEC PO SCH ×2 (06:15→06:19)
[2019-06-23] MEDS: SYNTHROID PO SCH ×2 (06:16→06:20)
[2019-06-23 07:05] LABS: BASO# 0.01 X1000 (0.0-0.2); BASO% 0.2 % (0.0-0.8); EOS# 0.13 X1000 (0.0-0.7); EOS% 2.4 % (0.0-10.0); HEMATOCRIT 25.2 % (37.0-47.0); HEMOGLOBIN 8.5 g/dL (12.0-16.0); IMM GRAN# 0.06 X1000 (0.0-0.04); IMM GRAN% 1.1 % (0.0-0.5); LYMPH# 0.84 X1000 (1.2-3.4); LYMPH% 15.5 % (20.5-51.1); MCH 30.1 PG (27-31); MCHC 33.7 g/dL (33-37); MCV 89.4 FL (81-99); MONO# 0.51 X1000 (0.11-0.59); MONO% 9.4 % (1.7-9.3); NEUT# 3.87 X1000 (1.4-6.5); NEUT% 71.4 % (42.2-75.2); PLT 57 X1000 (130-400); RBC 2.82 XMIL (4.2-5.4); RDW 16.7 % (11.5-14.5); WBC 5.42 X1000 (4.8-10.8)
[2019-06-23] MEDS ORDERED: LASIX IV ONE (07:12)
[2019-06-23 07:17] LABS: ALB/GLOB RATIO 0.5; ALBUMIN 1.8 g/dL (3.5-5.0); CALCIUM 10.2 mg/dL (8.8-10.2); CREATININE 1.2 mg/dL (0.5-0.9); MAGNESIUM 1.8 mg/dL (1.5-2.7); PHOSPHORUS 1.9 mg/dL (2.7-4.5); POTASSIUM 3.5 mmol/L (3.5-5.1); TOTAL BILIRUBIN 0.99 mg/dL (0.20-1.00); TOTAL PROTEIN 5.1 g/dL (6.3-8.3)
--- NOTE | 2019-06-23 07:25 | Diag Imaging Result Doc PS360 ---
EXAM: CHEST-PORTABLE INDICATION: dyspnea TECHNIQUE: One view COMPARISON: 06/22/2019 FINDINGS: Lung volumes are slightly lower. The infiltrate at the mid and lower lung zone on the left is essentially stable. There is suggestion of a small left effusion. No new consolidation is identified. Cardiac silhouette is stable. IMPRESSION: Slightly lower lung volumes. Stable chest, otherwise. Electronically signed by Miguel Hart 06/23/2019 7:22 AM
[2019-06-23] MEDS ORDERED: POTASSIUM PHOSPHATE 21 MMOL in NS 250 ML IV ONE (08:38)
[2019-06-23 08:59] LABS: INR 1.41; PROTIME 17.5 Seconds (11.0-16.0)
[2019-06-23 09:00] LABS: PTT 35.1 Seconds (22.3-41.8)
[2019-06-23] MEDS ORDERED: NS 250 ML ONE (09:17)
[2019-06-23] MEDS: FOLIC ACID PO SCH (10:17)
[2019-06-23] MEDS: NORCO-7.5 PO PRN ×2 (10:17→15:08)
[2019-06-23] MEDS: ELIQUIS PO SCH ×2 (10:17→20:56)
--- NOTE | 2019-06-23 10:37 | PROGRESS NOTE ---
DATE: 06/23/2019 SUBJECTIVE: This patient is still lying in bed. She seems to have some fluid overload so I will stop the Clinimix since she is already eating better. I will give her a dose of Lasix today to see how she does. She received a low dose of Lasix yesterday, and the urine output was much better. Around the central line is leaking some serous fluid constantly, so I will ask for a PICC line, and I will remove the central line afterwards. I believe this patient is a little bit better. Chest x-ray for me looks about the same compared with yesterday. She does have pulmonary edema, pending CMP at this moment. OBJECTIVE: Vital Signs: Temperature 97.5 degrees, pulse 88, respiratory rate 33, blood pressure 85/69, and oxygen saturation 92 on room air. HEENT: Head normocephalic. No trauma. PERRLA. Neck: Supple. No JVD. No masses. Central trachea. Chest: Decreased breath sounds globally. Bilateral rhonchi at the bases and crackles bilaterally at the bases as well mostly on the left side. Extremities: 1 to 2+ lower extremity edema. No clubbing. No cyanosis. Both legs are externally rotated with a lot of pain with movement. She is able to wiggle her toes. She is following commands. She is able to say her name and date of . She knows she is in the hospital. She is not oriented to time. Neurological: The patient is awake and alert. She is oriented x2. She seems to be following commands more consistently. LABORATORY: WBC 5.4, hemoglobin 8.5, hematocrit 25.2, and platelets 57,000. ASSESSMENT AND PLAN: 1. Septic shock likely due to health care associated pneumonia, leukocyte count resolved. Infectious Disease Department on board. Continue with same management. 2. Metabolic encephalopathy. This is getting better, and continue with same treatment. 3. Fluid overload. I will stop the Clinimix. I will request an echocardiogram. I will give her a dose of Lasix, pending CMP. 4. Left lower lobe pneumonia. Continue with antibiotics. 5. Hypoglycemia resolved. 6. Decubitus ulcers actually that are superficial. Continue with same management. Wound care on board. 7. Chronic thrombocytopenia. I will monitor, but I will request an evaluation by Hematology/Oncology Department. She has been on anticoagulation which I am hesitant to stop due to her history of deep vein thrombosis and pulmonary embolism, and sedentarism, basically this patient is bed bound. 8. Anemia stable. 9. Chronic kidney disease, seems to be at baseline pending CMP today. She is eating better so I will stop the Clinimix, and I will give her a dose of Lasix. 10. Constipation, resolved. Actually, she is having some liquid bowel movements. I will ask for Clostridium difficile toxin and antigen just in case. 11. History of deep venous thrombosis and pulmonary embolism. She has been taking Eliquis twice a day at home. I put this patient back on that treatment. Her platelet count is low in the 50s today. I will ask Hematology/Oncology Department to evaluate this patient. I am not sure why this patient is thrombocytopenic. 12. Hypomagnesemia and hypophosphatemia, pending lab work today. CRITICAL CARE TIME: 35 minutes. cc: Maged Huerta MD
--- NOTE | 2019-06-23 10:55 | Diag Imaging Result Doc PS360 ---
EXAM: CHEST-PORTABLE HISTORY: PICC line placement TECHNIQUE: Single view COMPARISON: 5:11 AM FINDINGS: Interval placement of a left-sided PICC line. The tip overlies the distal superior vena cava. No other interval change. IMPRESSION: Placement of a left PICC line with tip overlying the distal superior vena cava. Electronically signed by Adam Munoz 06/23/2019 10:52 AM
--- NOTE | 2019-06-23 16:15 | INFECTIOUS DISEASE PROGRESS NO ---
DATE: 06/23/2019 PRESENT ILLNESS: The patient has a left lower lobe pneumonia and an altered mental status. MEDICATIONS: Currently, the patient is on Zyvox for 3 days and ceftazidime for 1 day. PHYSICAL EXAMINATION: Vital Signs: Temperature is 98 degrees, pulse 110, respirations 18. Blood pressure is 85/69. General: This is an ill-appearing elderly female. She is in no acute distress. Head/eyes/ears/nose/throat: She can hear my spoken words and see near objects. I did not notice any white patches in her mouth. Neck: No stiffness. Lungs: Clear to auscultation. Cardiovascular: Heart rate is regular. Abdomen: Soft and nontender. Neurologic: The patient is awake. She is able to carry on a conversation, but she still does not appear to be in her normal mental state. LAB AND X-RAY: Chest x-ray shows a stable left lung infiltrate. CBC shows a white count of 5420, hemoglobin 8.5, and platelet count 57,000. Creatinine is 1.2. GFR is 53. Alkaline phosphatase is 185. ASSESSMENT AND PLAN: The patient has pneumonia with an altered mental status. I am going to continue ceftazidime and Zyvox, and hopefully her mental status will get better. COMORBIDITIES: Diabetes mellitus, obesity, sickle cell trait, and a history of deep venous thrombosis with pulmonary emboli. cc: Richi Mcgill MD
--- NOTE | 2019-06-23 22:46 | ECHO REPORT ---
ORDER DATE: 06/23/2019 MEASUREMENTS: Septal thickness 1.4, left ventricular internal diameter in diastole 3.7, posterior wall thickness 0.9. Left ventricular internal diameter in systole 2.1, left atrium 3.3, aortic root 3.2. SUMMARY: 1. Fair quality study. 2. The aortic valve is trileaflet and demonstrates mild sclerotic change. The aortic valve opens adequately on 2-dimensional images. The peak gradient across the aortic valve is 23 mmHg with a mean gradient of 13 mmHg. Calculated aortic valve area by Doppler is 2.8 cm2. Mitral, tricuspid and pulmonic valves are without evidence of structural abnormality, with mild tricuspid regurgitation and trace pulmonic insufficiency. The estimated systolic PA pressure by Doppler is 75 mmHg, suggesting moderate to severe pulmonary hypertension. The aortic root is normal size. 3. Normal left ventricular chamber size with mild concentric left hypertrophy is suggested. The estimated left ventricular ejection fraction appears to be at least 70%. No regional wall motion abnormalities evident. The left atrium, right atrium and right ventricle are normal in size with grossly preserved right ventricular systolic function. 4. No pericardial effusion. 5. Appearance of inferior vena cava suggests mild elevation in central venous pressure. CONCLUSIONS: 1. Mild aortic valve sclerosis without stenosis. 2. Mild tricuspid regurgitation with moderate to severe pulmonary hypertension by Doppler. 3. Mild concentric left ventricular hypertrophy, with estimated left ventricular ejection fraction at least 70%. 4. Mild elevation in central venous pressure suggested. cc: MD Maged Mercer MD
[2019-06-24] MEDS: TAZIDIME 1 GM in NS 50 ML IV SCH ×4 (00:09→23:42)
[2019-06-24] MEDS: NORCO-7.5 PO PRN ×3 (04:44→22:20)
[2019-06-24] MEDS: PRILOSEC PO SCH (06:04)
[2019-06-24] MEDS: SYNTHROID PO SCH (06:04)
[2019-06-24] MEDS: ZYVOX 600 MG/D5W 600 MG/300 ML IVPB IV SCH ×2 (06:18→18:34)
[2019-06-24 06:51] LABS: ALB/GLOB RATIO 0.7; ALBUMIN 2.2 g/dL (3.5-5.0); CREATININE 1.1 mg/dL (0.5-0.9); MAGNESIUM 1.8 mg/dL (1.5-2.7); PHOSPHORUS 2.3 mg/dL (2.7-4.5); TOTAL BILIRUBIN 1.24 mg/dL (0.20-1.00); TOTAL PROTEIN 5.5 g/dL (6.3-8.3)
[2019-06-24] MEDS ORDERED: LASIX IV ONE (07:12)
[2019-06-24 07:20] LABS: BASO# 0.01 X1000 (0.0-0.2); BASO% 0.2 % (0.0-0.8); EOS% 1.8 % (0.0-10.0); HEMATOCRIT 28.2 % (37.0-47.0); HEMOGLOBIN 9.6 g/dL (12.0-16.0); IMM GRAN# 0.08 X1000 (0.0-0.04); IMM GRAN% 1.5 % (0.0-0.5); LYMPH# 0.83 X1000 (1.2-3.4); LYMPH% 15.2 % (20.5-51.1); MCH 30.7 PG (27-31); MCV 90.1 FL (81-99); NEUT# 3.83 X1000 (1.4-6.5); NEUT% 70.3 % (42.2-75.2); PLT 74 X1000 (130-400); RBC 3.13 XMIL (4.2-5.4); RDW 16.7 % (11.5-14.5); WBC 5.45 X1000 (4.8-10.8)
--- NOTE | 2019-06-24 07:20 | Diag Imaging Result Doc PS360 ---
EXAM: CHEST-PORTABLE 06/24/2019 HISTORY: dyspnea TECHNIQUE: AP portable at 0543 COMMENT: There is a PICC line on the left with its tip in the superior vena cava. There are subsegmental atelectatic opacities present in the right base and the lingula. Compared to 06/23/2019 the right lower lobe atelectasis is slightly worse. IMPRESSION: Worsened right basilar atelectasis. Electronically signed by Alan Eastman 06/24/2019 7:18 AM
[2019-06-24 08:12] LABS: BANDS 2 % (0-1); EOS 2 % (1-10); LYMPHS 14 % (21-51); SEGS 80 % (42-75)
[2019-06-24 08:13] LABS: HYPOCHROM 1+; LARGE PLATELETS 1+
[2019-06-24] MEDS: FOLIC ACID PO SCH (09:26)
[2019-06-24] MEDS: ELIQUIS PO SCH ×2 (09:26→20:21)
--- NOTE | 2019-06-24 09:30 | PROGRESS NOTE ---
DATE: 06/24/2019 SUBJECTIVE: No big changes compared with yesterday. She is still confused. She is oriented to name. She is following commands on and off today. We have a negative balance in 24 hours but during this hospitalization, we have a positive balance of around 11.9 L. I will give her a dose of Lasix today again. She had an episode of hypoglycemia during the night. OBJECTIVE: Vital Signs: Temperature 98.7 degrees, pulse 103, respiratory rate 30, blood pressure 150/89, oxygen saturation 93 on room air. HEENT: Head normocephalic, no trauma. PERRLA. Neck: Supple. No JVD. No masses. Central trachea. Chest: Decreased breath sounds globally. Bilateral rhonchi at the bases with some crackles mostly on the left side. Extremities: There is 1+ to 2+ lower extremity edema. No clubbing. No cyanosis. Both legs are externally rotated with a lot of pain to movement and palpation. Neurological: This patient is awake. She is able to say her name. She is confused. Yesterday she knew she was in the hospital and today I do not understand what she tries to say and she is not oriented to time. She is following commands on and off but it is not consistent. LABORATORY: Sodium 138, potassium 4, chloride 109, bicarbonate 17, BUN 23, creatinine 1.1, glucose 108, calcium 10, phosphorus 2.3, magnesium 1.8. ASSESSMENT AND PLAN: 1. Septic shock, likely due to healthcare associated pneumonia, Infectious Disease Department on board. Continue with same management. 2. Metabolic encephalopathy. This has been up and down. Yesterday she was better compared with today but a few moments ago she received a dose of pain medications so I am not quite sure if this decrease in mental status is due to the pain medication. 3. Fluid overload. Clinimix has been stopped. I gave her a dose of Lasix yesterday and she seems to be doing well. I will repeat it today. 4. Left lower lobe pneumonia. Continue antibiotics. 5. Hypoglycemia resolved. 6. Decubitus ulcers, actually they are superficial. Continue with same management. Wound care on board. 7. Chronic thrombocytopenia. Pending lab work today. I will request an evaluation by Hematology Oncology Department to evaluate this patient. She has been on anticoagulation and I am hesitant to stop it due to her history of deep vein thrombosis and pulmonary embolism. She is sedentary and basically she is bed-bound. 8. Anemia stable. 9. CKD seems to be her baseline. Continue with the Lasix today. 10. Constipation, resolved. 11. History of deep venous thrombosis and PE, continue with Eliquis twice a day for now. I will ask Hematology Oncology Department to evaluate this patient. 12. Hypomagnesemia resolved. 13. Hypophosphatemia. I will monitor for now. CRITICAL CARE TIME: 35 minutes. cc: Maged Huerta MD
--- NOTE | 2019-06-24 20:08 | INFECTIOUS DISEASE PROGRESS NO ---
DATE: 06/24/2019 PRESENT ILLNESS: Ms. Camejo is being treated for a left lower lobe pneumonia and has an altered mental status. MEDICATIONS: Today is day 4 of Zyvox 600 mg IV every 12 hours and day 2 of ceftazidime 1 gram IV every 8 hours. PHYSICAL EXAMINATION: Vital Signs: Temperature is 99.1 degrees, pulse rate 101, respiratory rate 20, blood pressure 122/88, and O2 saturation is 97% on room air. General: This is an elderly, chronically ill-appearing female. She is sitting up in bed, currently in no acute distress. HEENT: Atraumatic, normocephalic. Oral mucous membranes are pink and moist. Conjunctivae are pale. Neck: Supple. Trachea is midline. Respiratory: Lung sounds have scattered wheezes in the upper lobes and diminished in the mid and bases. No work of breathing is noted. Cardiovascular: Heart rate and rhythm are regular and fast, sinus tachycardia on the monitor. Abdomen: Soft, obese and nontender. Bowel sounds are active. Neurologic: She is awake and responding appropriately at times, but mostly nonverbal with some moaning. LABORATORY AND X-RAY: Today her white count is 5.45, hemoglobin 9.6, platelet count 74,000. Creatinine is 1.1. GFR is 59. Total bilirubin 1.24, AST 60, ALT 37, alkaline phosphatase 289. Her Clostridium difficile antigen and toxin were both negative. Chest x-ray today shows worsening right basilar atelectasis. ASSESSMENT AND PLAN: Ms. Camejo is being treated for pneumonia with an altered mental status. She is receiving ceftazidime time and Zyvox which we will continue. According to family in the room she has been screaming out all day. At this time, she is quiet and confused, but following requests. She has a thrombocytopenia, however, this is stable. We will check a procalcitonin and continue medications as ordered. These plans have been discussed with and recommended by Dr. Mcgill. COMORBIDITIES: For Ms. Camejo include that she is elderly and obese with diabetes mellitus, DVT and pulmonary emboli history. Dictated by GAYLE Lester for Richi Mcgill MD cc: MD LISHA Chowdhury
[2019-06-24] MEDS: ALBUTEROL NEB INH PRN (20:15)
[2019-06-25] MEDS: D50W SYRINGE IV PRN ×2 (05:19→17:16)
[2019-06-25 05:28] LABS: BASO# 0.02 X1000 (0.0-0.2); BASO% 0.4 % (0.0-0.8); EOS# 0.08 X1000 (0.0-0.7); EOS% 1.6 % (0.0-10.0); HEMATOCRIT 25.6 % (37.0-47.0); HEMOGLOBIN 8.3 g/dL (12.0-16.0); IMM GRAN# 0.04 X1000 (0.0-0.04); IMM GRAN% 0.8 % (0.0-0.5); LYMPH# 0.98 X1000 (1.2-3.4); LYMPH% 19.7 % (20.5-51.1); MCH 29.4 PG (27-31); MCHC 32.4 g/dL (33-37); MCV 90.8 FL (81-99); MONO# 0.42 X1000 (0.11-0.59); MONO% 8.4 % (1.7-9.3); NEUT# 3.44 X1000 (1.4-6.5); NEUT% 69.1 % (42.2-75.2); PLT 73 X1000 (130-400); RBC 2.82 XMIL (4.2-5.4); RDW 16.3 % (11.5-14.5); WBC 4.98 X1000 (4.8-10.8)
[2019-06-25 05:30] LABS: ALB/GLOB RATIO 0.6; ALBUMIN 1.9 g/dL (3.5-5.0); CALCIUM 9.2 mg/dL (8.8-10.2); CREATININE 1.1 mg/dL (0.5-0.9); MAGNESIUM 1.7 mg/dL (1.5-2.7); PHOSPHORUS 2.3 mg/dL (2.7-4.5); POTASSIUM 3.7 mmol/L (3.5-5.1); TOTAL BILIRUBIN 1.03 mg/dL (0.20-1.00)
[2019-06-25] MEDS: ZYVOX 600 MG/D5W 600 MG/300 ML IVPB IV SCH ×3 (06:09→20:53)
[2019-06-25] MEDS: SYNTHROID PO SCH (06:29)
[2019-06-25] MEDS: PRILOSEC PO SCH (06:29)
[2019-06-25] MEDS ORDERED: LASIX IV ONE (06:54)
[2019-06-25] MEDS: ALBUTEROL NEB INH PRN ×3 (08:15→18:53)
[2019-06-25] MEDS: TAZIDIME 1 GM in NS 50 ML IV SCH ×2 (08:39→16:48)
[2019-06-25] MEDS: SODIUM CHLORIDE 0.9% INJ SCH (08:39)
[2019-06-25] MEDS: ELIQUIS PO SCH ×2 (08:39→20:54)
[2019-06-25] MEDS: FOLIC ACID PO SCH (08:39)
[2019-06-25] MEDS: SYNTHROID IV SCH (08:39)
[2019-06-25] MEDS: SODIUM CHLORIDE 0.9% INJ PRN (08:39)
[2019-06-25] MEDS: PROTONIX IV SCH (08:39)
--- NOTE | 2019-06-25 09:34 | PROGRESS NOTE ---
DATE: 06/25/2019 SUBJECTIVE: This patient seems to be more awake and more oriented today compared with yesterday. As per the nurse, this patient has been awake most of the night, but sleeping most of the day, and she has been confused. She is oriented to person, time, and she knows she is in the hospital at this moment, but she does not know which one. She is oriented to time. Her answers are slow. She is hard of hearing. I believe she is stable enough to be transferred from the unit to [facility]. Vital signs are stable. At home, she is on oxygen, but the oxygen saturation at room air here has been stable, so we will monitor. OBJECTIVE: Vital Signs: Temperature 97.8 degrees, pulse 86, respiratory rate 22, blood pressure 144/76, oxygen saturation 94% on room air. HEENT: Head normocephalic. No trauma. PERRLA. Neck: Supple. I cannot see JVD because of her neck size. Central trachea. Chest: Decreased breath sounds globally with bilateral rhonchi at the bases, and some crackles at the bases. Abdomen: Soft, nontender, nondistended. No hepatosplenomegaly. Extremities: There is 1+ lower extremity edema. No clubbing. No cyanosis. Both legs are externally rotated, with a lot of pain to palpation. Neurological: The patient is awake. She is able to say her name, date of . She knows she is in the hospital. She is not oriented to time. Her answers are slow. She is following commands. She is hard of hearing. LABORATORY DATA: WBC 4.9, hemoglobin 8.3, hematocrit 25.6, platelets 73,000. Sodium 137, potassium 3.7, chloride 106, bicarbonate 19, BUN 21, creatinine 1.1, glucose 71, calcium 9.2. Phosphorus 2.3, magnesium 1.7. ASSESSMENT AND PLAN: 1. Septic shock, likely due to healthcare-associated pneumonia. Infectious Disease Department on board. Continue with the same management. 2. Metabolic encephalopathy. This patient has been having signs of recovery on and off. It looks like she has been sleeping most of the day, and she has been awake most of the night. At this moment, she is awake and she is oriented to person, she is able to say her date of with some difficulty, and she knows she is in the hospital. She is not oriented to time. She is following commands more consistently compared with yesterday. 3. Fluid overload. I stopped the Clinimix a few days ago, and she received a couple doses of Lasix yesterday and the day before. I will hold the Lasix today. Echocardiogram showed [id number] pulmonary hypertension. She seems to be breathing fine. She is not complaining of shortness of breath. 4. Left lower lobe pneumonia. Continue with antibiotics. 5. Hypoglycemia. Continue to monitor. 6. Decubitus ulcers. Actually, they are superficial. Continue with the same management. Wound Care on board. The problem is that this patient is really obese and she is not moving too much and she is basically bedbound. 7. Chronic thrombocytopenia. I will probably request an evaluation by Hematology/Oncology Department if this patient's platelet count is worse. For now, will monitor. Continue with the same management. 8. Anemia, stable. 9. Chronic kidney disease. Seems to be her baseline. She is not going to get Lasix today. 10. Constipation, resolved. 11. History of deep venous thrombosis and pulmonary embolism. Continue with Eliquis twice a day for now. 12. Hypomagnesemia, resolved. 13. Hypophosphatemia, stable. Will monitor. CRITICAL CARE TIME: 35 minutes. cc: Maged Huerta MD
[2019-06-25] MEDS: NORCO-7.5 PO PRN (10:23)
[2019-06-25] MEDS: MYCOSTATIN SUSP PO SCH ×2 (16:46→20:54)
[2019-06-26] MEDS: TAZIDIME 1 GM in NS 50 ML IV SCH (01:48)
[2019-06-26] MEDS: D50W SYRINGE IV PRN (04:43)
[2019-06-26] MEDS: SYNTHROID IV SCH (06:39)
[2019-06-26 07:06] LABS: BASO# 0.01 X1000 (0.0-0.2); BASO% 0.2 % (0.0-0.8); EOS# 0.09 X1000 (0.0-0.7); EOS% 1.4 % (0.0-10.0); HEMATOCRIT 24.9 % (37.0-47.0); HEMOGLOBIN 7.8 g/dL (12.0-16.0); IMM GRAN# 0.04 X1000 (0.0-0.04); IMM GRAN% 0.6 % (0.0-0.5); LYMPH# 1.11 X1000 (1.2-3.4); LYMPH% 17.1 % (20.5-51.1); MCH 28.9 PG (27-31); MCHC 31.3 g/dL (33-37); MCV 92.2 FL (81-99); MONO# 0.42 X1000 (0.11-0.59); MONO% 6.5 % (1.7-9.3); NEUT# 4.83 X1000 (1.4-6.5); NEUT% 74.2 % (42.2-75.2); PLT 72 X1000 (130-400); RDW 16.5 % (11.5-14.5)
--- NOTE | 2019-06-26 07:24 | Diag Imaging Result Doc PS360 ---
EXAM: CHEST-PORTABLE 06/26/2019 HISTORY: dyspnea TECHNIQUE: AP portable at 0622 COMMENT: The platelike atelectatic opacities previously present in the right lower lobe have largely resolved. There continues to be patchy atelectasis or pneumonia in the left lower lobe and lingula. There is cardiomegaly. IMPRESSION: Improved right lower lobe atelectasis since 06/24/2019. Electronically signed by Alan Eastman 06/26/2019 7:21 AM
[2019-06-26 07:28] LABS: ALB/GLOB RATIO 0.6; ALBUMIN 1.8 g/dL (3.5-5.0); CALCIUM 9.6 mg/dL (8.8-10.2); CREATININE 1.1 mg/dL (0.5-0.9); POTASSIUM 3.4 mmol/L (3.5-5.1); TOTAL BILIRUBIN 1.06 mg/dL (0.20-1.00)
[2019-06-26 07:54] LABS: LYMPHS 12 % (21-51); MONO 4 % (1-9); SEGS 82 % (42-75)
[2019-06-26] MEDS: ALBUTEROL NEB INH PRN (07:54)
[2019-06-26] MEDS: ZYVOX 600 MG/D5W 600 MG/300 ML IVPB IV SCH (09:23)
[2019-06-26] MEDS: PROTONIX IV SCH (09:23)
[2019-06-26] MEDS: SODIUM CHLORIDE 0.9% INJ SCH (09:24)
[2019-06-26] MEDS: NORCO-7.5 PO PRN ×2 (10:04→20:51)
[2019-06-26] MEDS: MYCOSTATIN SUSP PO SCH ×4 (10:04→20:51)
[2019-06-26] MEDS: FOLIC ACID PO SCH (10:04)
[2019-06-26] MEDS: ELIQUIS PO SCH ×2 (10:04→20:52)
[2019-06-26] MEDS: TEFLARO 600 MG in NS 250 ML IV SCH (15:23)
[2019-06-26] MEDS: DUONEB (A & A) INH SCH ×4 (15:39→22:58)
--- NOTE | 2019-06-26 17:50 | INFECTIOUS DISEASE PROGRESS NO ---
DATE: 06/26/2019 PRESENT ILLNESS: Ms. Camejo is being treated for pneumonia, with a procalcitonin level of 0.6, which makes it very likely that there is a respiratory tract infection. MEDICATIONS: Today is day 6 of Zyvox 600 mg IV every 12 hours and day 4 of ceftazidime 1 gram IV every 8 hours. PHYSICAL EXAMINATION: Vital Signs: Temperature is 99.2 degrees, pulse rate 98, respiratory rate 20, blood pressure 132/70, and O2 saturation 100% on room air. General: This is a morbidly obese, chronically ill-appearing, elderly female. She is lying in the bed, currently in mild distress due to the process of being cleaned from a bowel movement. HEENT: Atraumatic, normocephalic. Oral mucous membranes are pink and moist. Conjunctivae are pale. Neck: Supple. Trachea is midline. Cardiovascular: Heart rate is regular. Respiratory: Lung sounds have scattered wheezing noted in the upper lobes and diminished in the mid and bases. No work of breathing is noted. Abdomen: Soft, obese, and nontender. Bowel sounds are active. Neurologic: She is awake, alert, and responding appropriately to questions. She is yelling out when turned [id number] for cleaning. Generalized weakness is noted in her extremities. LABORATORY AND X-RAY: Today her white count is 6.5, hemoglobin 7.8, platelet count 72,000. Creatinine is 1.1 with a GFR of 59. Total bilirubin is 1.06, AST 57, ALT 33, alkaline phosphatase 263. Procalcitonin level is 0.6. Chest x-ray today shows some improvement of the patchy atelectasis or pneumonia to the left lower lobe and lingula. ASSESSMENT AND PLAN: Ms. Camejo has pneumonia and is being treated with ceftazidime and Zyvox. There is a stable thrombocytopenia; however, her hemoglobin continues to drop. We will go ahead and discontinue the Zyvox and ceftazidime at this time and instead give her ceftaroline 600 mg intravenously every 12 hours as a single agent. These plans have been discussed with and recommended by Dr. Mcgill. COMORBIDITIES: The comorbidities for Ms. Camejo include that she is elderly with morbid obesity, thrombocytopenia, anemia, diabetes mellitus, and history of DVT and pulmonary emboli. Dictated by GAYLE Lester for Richi Mcgill MD cc: Richi Mcgill MD MTDD
--- NOTE | 2019-06-26 17:54 | PROGRESS NOTE ---
DATE: 06/26/2019 SUBJECTIVE: The patient seems to be more awake, but she is complaining of more cough today. She does have oral thrush, and we have started this patient on nystatin by mouth, 4 times a day. We will continue with the antibiotics. I have increased a little bit her dose of levothyroxine since her TSH is 32.2, and I requested for the family to bring me the dose of levothyroxine that she has been taking at home. I have documented here that it is 25 mcg p.o. q.a.m., and I have placed this patient on IV levothyroxine 25 mcg that probably will double up her current dose. TSH can be an acute phase reactant, but this is quite high. OBJECTIVE: Vital Signs: Temperature 99.3, pulse 92, respiratory rate 16, blood pressure 97/51 oxygen saturation 97% on room air. HEENT: Head normocephalic. No trauma. PERRLA. Neck: Supple. I cannot see JVD because of her neck size. Central trachea. Chest: Decreased breath sounds globally with bilateral rhonchi at the bases, mostly on the left side. Abdomen: Soft, nontender, nondistended. No hepatosplenomegaly. Extremities: There is 1+ lower extremity edema. She has right leg chronic venous changes that are painful to palpation as well. Neurological: The patient is awake. She is able to say her name. She is following commands for me. She is really weak. She is hard of hearing. LABORATORY: WBC 6.5, hemoglobin 7.8, hematocrit 24.9, platelets 72. Sodium 136, potassium 3.4, chloride 106, bicarbonate 18, BUN 20, creatinine 1.1, glucose 105, calcium 9.6. TSH 32.2. ASSESSMENT AND PLAN: 1. Septic shock, likely due to healthcare-associated pneumonia. Infectious Disease Department on board. Continue with same management. 2. Metabolic encephalopathy. This patient has been having signs of recovery, and she seems to be more stable now. At the moment of my exam, she was awake, and she was oriented to person, and she was following commands. 3. Oral thrush. Continue with nystatin by mouth. 4. Fluid overload. I stopped the Clinimix a few days ago. X-ray looks stable. She does not have too much fluid on her lower extremities, and BUN and creatinine are at baseline. 5. Hypoglycemia. Continue to monitor. 6. Left lower lobe pneumonia. Continue with antibiotics per Infectious Disease Department. 7. Decubitus ulcers. Actually they are superficial. Continue with same management. Wound care on board. The problem is that this patient is morbidly obese, and she is not moving too much. She is basically bed bound at this moment. 8. Chronic thrombocytopenia. Aware. I will ask the Hematology/Oncology Department to evaluate this patient if this gets worse. 9. Anemia, stable. 10. Chronic kidney disease. This is her baseline. 11. Constipation, resolved. 12. History of deep venous thrombosis and pulmonary embolism. Continue with Eliquis twice a day for now. 13. Electrolyte imbalance. We will monitor. 14. This patient is still full code. Palliative care team has discussed the case with the daughter, and she is looking for probably getting long-term care for this patient versus hospice at home,. Her prognosis is not too good because she is morbidly obese. She has some comorbidities, and she is basically not moving too much. Her appetite has decreased as well. She is eating probably once a day. Her TSH level is high. I have doubled up her dose of levothyroxine ,and I have requested her family member at the bedside to bring me the dose of the levothyroxine that she has been taking at home. Here, it is listed at 25 mcg daily, which I believe is a low dose. cc: Maged Huerta MD
[2019-06-26] MEDS: BLISTEX MEDICATED BERRY LIP BALM TOP PRN (20:51)
[2019-06-27] MEDS: DUONEB (A & A) INH SCH ×6 (02:30→23:19)
[2019-06-27] MEDS: NORCO-7.5 PO PRN ×4 (02:41→23:39)
[2019-06-27] MEDS: TEFLARO 600 MG in NS 250 ML IV SCH ×2 (02:42→16:21)
[2019-06-27 06:57] LABS: BASO# 0.02 X1000 (0.0-0.2); BASO% 0.3 % (0.0-0.8); EOS# 0.08 X1000 (0.0-0.7); EOS% 1.3 % (0.0-10.0); HEMATOCRIT 23.8 % (37.0-47.0); HEMOGLOBIN 7.6 g/dL (12.0-16.0); IMM GRAN# 0.02 X1000 (0.0-0.04); IMM GRAN% 0.3 % (0.0-0.5); LYMPH# 0.96 X1000 (1.2-3.4); LYMPH% 15.9 % (20.5-51.1); MCH 29.7 PG (27-31); MCHC 31.9 g/dL (33-37); NEUT# 4.64 X1000 (1.4-6.5); NEUT% 77.2 % (42.2-75.2); PLT 74 X1000 (130-400); RBC 2.56 XMIL (4.2-5.4); RDW 16.6 % (11.5-14.5); WBC 6.02 X1000 (4.8-10.8)
[2019-06-27] MEDS: SYNTHROID IV SCH (06:58)
[2019-06-27] MEDS: PROTONIX IV SCH ×2 (06:59→11:01)
[2019-06-27 07:28] LABS: ALB/GLOB RATIO 0.5; ALBUMIN 1.8 g/dL (3.5-5.0); CALCIUM 9.4 mg/dL (8.8-10.2); CREATININE 1.1 mg/dL (0.5-0.9); POTASSIUM 3.4 mmol/L (3.5-5.1); TOTAL BILIRUBIN 0.98 mg/dL (0.20-1.00); TOTAL PROTEIN 5.1 g/dL (6.3-8.3)
[2019-06-27] MEDS ORDERED: KLOR-CON PO ONE (09:03)
[2019-06-27] MEDS: MYCOSTATIN SUSP PO SCH ×4 (11:01→22:39)
[2019-06-27] MEDS: THERA M PLUS PO SCH (11:02)
[2019-06-27] MEDS: SODIUM CHLORIDE 0.9% INJ SCH (11:02)
[2019-06-27] MEDS: ELIQUIS PO SCH ×2 (11:02→22:39)
[2019-06-27] MEDS: FOLIC ACID PO SCH (11:02)
[2019-06-27] MEDS ORDERED: ALBUMIN 25% IV ONE (11:50)
--- NOTE | 2019-06-27 14:27 | PROGRESS NOTE ---
DATE: 06/27/2019 SUBJECTIVE: The patient is lying in bed, she seems to be more comfortable today. She seems to be more awake. Vital signs are stable. Hemoglobin has been dropping slowly. I have requested a Hemoccult. Kidney function is stable as well. The plan is to send this patient to a rehab center. Palliative Care team taking care of all the details. She is eating better and I will replace her potassium. I will put her on multivitamin. OBJECTIVE: Vital Signs: Temperature 98.5 degrees, pulse 86, respiratory rate 16, blood pressure 99/51, oxygen saturation 95% on room air. HEENT: Head normocephalic, no trauma, PERRLA. Neck: Supple, no JVD. No masses. Central trachea. Chest: Clear to auscultation. Decreased breath sounds globally with bilateral rhonchi at the bases, especially the left lower side. Abdomen: Soft, nontender, nondistended. No hepatosplenomegaly. Extremities: 1+ lower extremity edema. She has right chronic venous changes that are painful to palpation as well. Neurological: Patient is awake. She is able to say her name. She is able to recognize family members at the bedside. She is feeling better. She is hard of hearing. LABORATORY: WBC 6, hemoglobin 7.6, hematocrit 23.8, platelets 74,000. Sodium 137, potassium 3.4, chloride 106, bicarbonate 17, BUN 20, creatinine 1.1, glucose 84, calcium 9.4, albumin 1.8. ASSESSMENT AND PLAN: 1. Septic shock, likely due to healthcare-associated pneumonia. Infectious Disease Department on board. Continue with same management. 2. Metabolic encephalopathy, better. 3. Oral thrush. Continue with nystatin by mouth. 4. Fluid overload. I stopped all the fluids and she is just tolerating p.o. BUN and creatinine at baseline. 5. Hypoglycemia. Continue to monitor. 6. Left lower lobe pneumonia. Continue with antibiotics per Infectious Disease Department. 7. Decubitus ulcers. They are actually superficial. Continue with same management. Wound Care on board. The problem is that this patient is morbidly obese and she is not moving too much, she is basically bed bound now. 8. Chronic thrombocytopenia, stable. 9. Anemia. The hemoglobin has been dropping slowly. I have requested an occult blood in the stool. We will monitor. 10. Chronic kidney disease. This is her baseline. 11. Constipation, resolved. 12. History of deep venous thrombosis and pulmonary embolism. Continue with Eliquis twice a day. 13. Electrolyte imbalance. I will replace the potassium. 14. This patient is full code. 15. Hypoalbuminemia. I will give her some albumin today. She has not been eating too much protein. cc: Maged Huerta MD
[2019-06-28] MEDS: TEFLARO 600 MG in NS 250 ML IV SCH ×2 (03:19→13:32)
[2019-06-28] MEDS: DUONEB (A & A) INH SCH ×6 (03:53→22:54)
[2019-06-28] MEDS: NORCO-7.5 PO PRN (06:37)
[2019-06-28] MEDS: SYNTHROID IV SCH (06:40)
[2019-06-28] MEDS: SODIUM CHLORIDE 0.9% INJ PRN (06:41)
[2019-06-28] MEDS: PROTONIX IV SCH ×2 (06:41→10:05)
[2019-06-28 08:57] LABS: ALLEN TEST NO; BE -9.1 mmoll (-3.0-3.0); BLOOD TYPE ARTERIAL; HCO3-(ACT) 17.6 mmoll (20.0-26.0); METHB 0.9 % (0.0-1.5); O2(CT) 13.4 mL/dL (15.0-23.0); PCO2(98.6) 32 mmHg (35-45); SAMPLE BLOOD; SAO2 88.1 % (95.0-100.0); THB 11.2 g/dL (11.5-17.4); pH(98.6) 7.31 (7.35-7.45)
[2019-06-28 09:00] LABS: O2HB 85.2 % (95.0-99.0); PO2(98.6) 49 mmHg (60-100)
[2019-06-28 09:01] LABS: MODALITY ROOM AIR
[2019-06-28] MEDS ORDERED: LASIX IV ONE (09:01)
[2019-06-28 09:31] LABS: HEMATOCRIT 24.5 % (37.0-47.0); HEMOGLOBIN 7.7 g/dL (12.0-16.0)
--- NOTE | 2019-06-28 09:44 | PROGRESS NOTE ---
DATE: 06/28/2019 SUBJECTIVE: This patient is lying in bed. She seems to be having problem breathing today. She is hypoxemic, and she has not been hypoxemic during this hospitalization. As per the daughter, she uses oxygen at home. She has some crackles bilaterally, and decreased breath sounds globally, with rhonchi at the bases especially. I will give her a dose of Lasix. I will request a new x- ray and Pulmonary Department evaluation. I will transfer this patient to the ICU. I will put her on oxygen. OBJECTIVE: Vital Signs: Temperature 98.7 degrees, pulse 98, respiratory rate 24, blood pressure 145/90, oxygen saturation 88 on room air. HEENT: Head normocephalic. No trauma. PERRLA. Neck: Supple. No JVD. No masses. Central trachea. Chest: Decreased breath sounds globally with bilateral rhonchi at the bases and some crackles bilaterally as well, especially on the left side. Abdomen: Soft, nontender, nondistended. No hepatosplenomegaly. Extremities: There is 1+ lower extremity edema. He has chronic venous changes that are painful to palpation as well on the right side mostly. Neurological: The patient is awake. She is able to say her name, but apparently she was confused during the night. Limited mobilization because of her size and generalized weakness. LABORATORY DATA: Pending lab work at this moment. ABGs showed a pH of 7.3, PO2 of 49, pCO2 of 32, bicarb 18. ASSESSMENT AND PLAN: 1. Septic shock due to healthcare-associated pneumonia. Infectious Disease Department on board. Continue with antibiotics. 2. Metabolic encephalopathy. As per the daughter, she was confused and not making sense during the night. At this moment, she is answering some of my questions. She does have generalized weakness. 3. Oral thrush. Continue with nystatin by mouth. 4. Fluid overload. I stopped all the fluids a few days ago, and she will receive a dose of Lasix today. She has some crackles. 5. Hypoxemic respiratory failure. As per the daughter, she has been getting oxygen at home, around 3 liters. She has not been getting oxygen during this hospitalization. The oxygen saturation has been good, except today. I will put her back on oxygen, and she will receive Lasix, and Pulmonary Department will evaluate this patient. 6. Hypoglycemia. Will continue to monitor. 7. Left lower lobe pneumonia. Continue with antibiotics per Infectious Disease Department. 8. Decubitus ulcers. They are actually superficial. Continue with the same management. Wound Care on board. The problem is that this patient is morbidly obese and she is having really but pain when we try to move her. 9. Chronic thrombocytopenia, stable. 10. Anemia. Her hemoglobin has been dropping slowly. I have requested an occult blood in the stool. I will transfuse this patient as needed. 11. Chronic kidney disease. This is her baseline. 12. Constipation, resolved. 13. History of deep venous thrombosis and pulmonary embolism. Continue with Eliquis twice a day. 14. Electrolyte imbalance. Yesterday, I replaced her potassium. Pending lab work today. 15. This patient is a full code, and I had a conversation today with the daughter for about 15 minutes, again about her code status. I also requested an evaluation by the Palliative Care team to evaluate the possibility of hospice, but the daughter wants to send this patient to a rehab center, and transition her to long-term care since she cannot take care of her. 16. Hypoalbuminemia. I gave her some albumin yesterday. She has not been eating too much protein. 17. Severe pulmonary hypertension. Aware. I will transfer this patient back to the intensive care unit. I discussed the case with the daughter. I told her that she has a bad prognosis because of her multiple comorbidities and current condition. cc: Maged Huerta MD
[2019-06-28] MEDS: SODIUM CHLORIDE 0.9% INJ SCH (10:05)
[2019-06-28 10:09] LABS: CALCIUM 9.6 mg/dL (8.8-10.2); CREATININE 1.3 mg/dL (0.5-0.9); POTASSIUM 4.2 mmol/L (3.5-5.1)
--- NOTE | 2019-06-28 10:28 | Diag Imaging Result Doc PS360 ---
EXAM: CHEST-PORTABLE HISTORY: SOB TECHNIQUE: Single view COMPARISON: 06/26/2019 FINDINGS: No change in the left-sided PICC line. There is vascular distention and cardiomegaly. There are infiltrates in the left lung base with a small effusion. IMPRESSION: Worsening pulmonary edema Electronically signed by Adam Munoz 06/28/2019 10:26 AM
[2019-06-28] MEDS: FOLIC ACID PO SCH (10:36)
[2019-06-28] MEDS: THERA M PLUS PO SCH (10:36)
[2019-06-28] MEDS: MYCOSTATIN SUSP PO SCH ×4 (10:36→22:04)
[2019-06-28] MEDS: ELIQUIS PO SCH ×2 (10:37→22:03)
[2019-06-28] MEDS: MUCOMYST 20% INH SCH ×2 (11:32→19:45)
[2019-06-28] MEDS ORDERED: NS 500 ML IV ONE (16:46)
[2019-06-28] MEDS ORDERED: CLINIMIX E 4.25%-5% SOLUTION 1,000 ML IV SCH (17:00)
[2019-06-28] MEDS ORDERED: ALBUMIN 25% IV ONE (18:07)
[2019-06-29] MEDS: TEFLARO 600 MG in NS 250 ML IV SCH ×2 (03:14→13:56)
--- NOTE | 2019-06-29 03:18 | PULMONOLOGY CONSULTATION ---
DATE: 06/28/2019 REQUESTING PHYSICIAN: Dr. Park. REASON FOR CONSULTATION: Respiratory failure. HISTORY OF PRESENT ILLNESS: Ms Camejo is a 73-year-old female with morbid obesity and a BMI greater than 40, mild diastolic heart failure with severe pulmonary hypertension, who was admitted to the hospital 12 days ago after falling out of bed and hurting her right knee and right ankle. No fracture was identified in the arthroplasty. She underwent CT scan of the chest, abdomen and pelvis which revealed a left lower lobe pneumonia. Had mild to moderate leukocytosis which normalized on antibiotics. She received albumin yesterday for hypoalbuminemia. Today she had more difficulty with breathing. Dr. Park indicates that she has not been hypoxic during this hospitalization, but the chart indicates she has been on 2 to 3 L her entire hospital stay. PAST MEDICAL HISTORY: 1. Morbid obesity. 2. Sickle cell trait. 3. Diabetes mellitus. 4. Hypertension. 5. Dyslipidemia. 6. History of DVT and pulmonary emboli. 7. History of bilateral right knee surgery. 8. Status post total left hip replacement. SOCIAL HISTORY: Prior tobacco use. No alcohol use listed. She is bed-bound. FAMILY HISTORY: Noncontributory to current presentation. REVIEW OF SYSTEMS: Was made with the patient. She is a poor historian. She is without specific complaints. PHYSICAL EXAMINATION: General: Reveals an obese white female resting comfortably and in no distress. Vital Signs: BP 127/82, heart rate 80, respiratory rate 22, oxygen saturation 100% on 2 L per nasal cannula. HEENT: Pupils are equal and reactive. Oropharynx is clear. Neck: Supple. Chest: Reveals diminished breath sounds left base. Cardiac: S1-S2. Abdomen: Obese and soft. Extremities: Without edema. LABORATORIES: White blood count 6.02, hemoglobin 7.7, platelet count 74,000. Arterial blood gas performed on room air this morning, pH 7.31, pCO2 of 32, PO2 of 49. IMPRESSION: A 73-year-old with: 1. Left lower lobe pneumonia. 2. Chronic hypoxemic respiratory failure. Review of her old chart indicates she is always on 2 or 3 L during hospitalization. 3. Diastolic dysfunction. 4. Severe pulmonary hypertension. 5. Mild increased vascular distention on chest x-ray today, possibly related to albumin infusion. PLAN: 1. Continue oxygen for hypoxemic respiratory failure. 2. Continue antibiotics per Infectious Disease. 3. Continue bronchodilators. 4. Consider additional Lasix tomorrow if she does not have worsening of BUN and creatinine. cc: Saud Garcia MD
[2019-06-29] MEDS: DUONEB (A & A) INH SCH ×6 (03:26→23:12)
[2019-06-29 04:59] LABS: ALLEN TEST YES; BE -9.2 mmoll (-3.0-3.0); BLOOD TYPE ARTERIAL; HCO3-(ACT) 17.7 mmoll (20.0-26.0); O2(CT) 10.7 mL/dL (15.0-23.0); O2HB 94.9 % (95.0-99.0); PCO2(98.6) 31 mmHg (35-45); PO2(98.6) 73 mmHg (60-100); SAMPLE BLOOD; SAO2 97.5 % (95.0-100.0); THB 7.9 g/dL (11.5-17.4); pH(98.6) 7.32 (7.35-7.45)
[2019-06-29 05:00] LABS: MODALITY CANNULA
[2019-06-29] MEDS: PROTONIX IV SCH (06:14)
[2019-06-29] MEDS: SYNTHROID IV SCH (06:14)
[2019-06-29 06:24] LABS: BASO# 0.02 X1000 (0.0-0.2); BASO% 0.3 % (0.0-0.8); EOS# 0.13 X1000 (0.0-0.7); EOS% 2.2 % (0.0-10.0); HEMATOCRIT 23.2 % (37.0-47.0); HEMOGLOBIN 7.3 g/dL (12.0-16.0); LYMPH# 0.93 X1000 (1.2-3.4); MCH 29.6 PG (27-31); MCHC 31.5 g/dL (33-37); MCV 93.9 FL (81-99); MONO# 0.36 X1000 (0.11-0.59); MONO% 6.2 % (1.7-9.3); NEUT# 4.38 X1000 (1.4-6.5); NEUT% 75.3 % (42.2-75.2); PLT 59 X1000 (130-400); RBC 2.47 XMIL (4.2-5.4); RDW 17.1 % (11.5-14.5); WBC 5.82 X1000 (4.8-10.8)
--- NOTE | 2019-06-29 07:05 | Diag Imaging Result Doc PS360 ---
EXAM: CHEST-PORTABLE 06/29/2019 HISTORY: dyspnea TECHNIQUE: AP portable at 0459 COMMENT: There is a left-sided PICC line with its tip at the confluence of the brachiocephalic veins. There is increased pulmonary vascularity. The platelike opacity which was demonstrated on 06/28/2019 in the lingula is no longer visible however there continues to be retrocardiac opacification. IMPRESSION: Pulmonary edema plus minus atelectasis or pneumonia in the left lower lobe. Electronically signed by Alan Eastman 06/29/2019 7:02 AM
[2019-06-29 07:07] LABS: ALBUMIN 2.6 g/dL (3.5-5.0); CALCIUM 9.8 mg/dL (8.8-10.2); CREATININE 1.5 mg/dL (0.5-0.9); MAGNESIUM 1.9 mg/dL (1.5-2.7); PHOSPHORUS 3.4 mg/dL (2.7-4.5); POTASSIUM 4.4 mmol/L (3.5-5.1); TOTAL BILIRUBIN 1.16 mg/dL (0.20-1.00); TOTAL PROTEIN 5.2 g/dL (6.3-8.3)
[2019-06-29] MEDS ORDERED: DULCOLAX PR ONE (07:16)
[2019-06-29 07:18] LABS: EOS 1 % (1-10); LYMPHS 17 % (21-51); MONO 6 % (1-9); SEGS 76 % (42-75)
--- NOTE | 2019-06-29 07:52 | INFECTIOUS DISEASE PROGRESS NO ---
DATE: 06/29/2019 PRESENT ILLNESS: The patient is being treated for pneumonia. She also has pulmonary venous congestion. MEDICATIONS: The patient has been on antibiotics for a total of 9 days. Currently, she is on ceftaroline and she has been on that for the past 3 days. She also is on nystatin swish and swallow. PHYSICAL EXAMINATION: Vital Signs: Temperature is 98 degrees, pulse 84, respirations 23, blood pressure 131/71. General: This is an obese, chronically ill-appearing, elderly female. She is in no acute distress. Head, Eyes, Ears, Nose, and Throat: It appears that she does have a white coating on her tongue suspicious for oral candidiasis. Neck: No stiffness. Lungs: Clear to auscultation. Cardiovascular: Heart rate is regular. Extremities: The patient has a PICC in the left arm. The site is not purulent or bleeding. Neurologic: The patient is awake today. She can move her extremities. There is no tremor. LAB AND X-RAY: Chest x-ray shows worsening pulmonary edema, and it also does show a left basilar infiltrate. The patient's CBC shows a white blood cell count of 5820, hemoglobin 7.3, and platelet count 59,000. Blood gases show a pH of 7.32, a PO2 of 73, and a pCO2 of 31. Creatinine is 1.3. GFR is 48. ASSESSMENT AND PLAN: The patient has pneumonia. My plan is to continue with ceftaroline. The pneumonia is complicated by pulmonary venous congestion. Nystatin will be continued for oral candidiasis. COMORBIDITIES: The patient is elderly, she is obese. She has thrombocytopenia, anemia, diabetes mellitus, and a history of deep venous thrombosis with pulmonary emboli. cc: Richi Mcgill MD [facility]
--- NOTE | 2019-06-29 07:54 | PROGRESS NOTE ---
DATE: 06/29/2019 SUBJECTIVE: This patient is lying in bed. She is not complaining of any pain at this moment. Today, she is awake, alert, and she is oriented x3. She is following commands. Her urine output decreased significantly, and she does have pulmonary edema as well. I gave her 50 g of albumin 2 days ago, and also yesterday as well. Pending CMP today, but the GFR has been decreasing. I will get Nephrology Department to evaluate this patient. Pulmonary Department on board. OBJECTIVE: Vital Signs: Temperature 97.8 degrees, pulse 84, respiratory rate 23, blood pressure 131/77, and oxygen saturation 94% on 2 L of nasal cannula. HEENT: Head normocephalic. No trauma. PERRLA. Neck: Supple. No JVD. No masses. Central trachea. Chest: Decreased breath sounds globally with bilateral crackles at the bases, and some rhonchi mostly at the level of the left lower lobe. Abdomen: Soft. Protuberant. No hepatosplenomegaly. Extremities: 1+ lower extremity edema. No clubbing. No cyanosis. He has chronic venous changes which is painful to palpation at the level of the right leg. Neurological: The patient is awake. She is oriented x3 today. She is able to say her date of as well. She is following commands. She does have generalized weakness. LABORATORY: WBC 5.8, hemoglobin 7.3, hematocrit 23.2, and platelets 59,000. Pending CMP. ASSESSMENT AND PLAN: 1. Septic shock due to healthcare associated pneumonia. Infectious Disease Department on board. Continue with antibiotics. 2. Metabolic encephalopathy, better today. She is completely awake and oriented. We will monitor. 3. Oral thrush. Continue with the statin by mouth. 4. Fluid overload. Because of her decreased urine output, I gave her some doses of albumin. Total of 50 g 2 days ago and 50 g yesterday. Also, I gave her a little bit of normal saline bolus. Her urine output is still low so I will consult Nephrology Department. 5. Acute on chronic kidney disease, as above. I will consult Nephrology Department, and I will monitor. 6. Hypoxemic respiratory failure. This patient has been getting oxygen at home between 2 and 3 L. She has not been getting oxygen during this hospitalization because she has been normal except for yesterday that she started having some hypoxemia, and some worsening pulmonary edema. I gave her a dose of Lasix, but she responded well. The Pulmonary Department is following this patient. 7. Hypoglycemia. Continue to monitor. This patient is not eating too much. 8. Left lower lobe pneumonia. Continue with antibiotics per Infectious Disease Department. 9. Decubitus ulcers. We will monitor. Wound Care on board. It looks like they are superficial. 10. Chronic thrombocytopenia, stable. 11. Anemia. Her hemoglobin has been dropping slowly. I requested an occult blood in the stool. 12. Constipation. She has been having bowel movements except that it has been documented for the past couple of days so I will give her a Dulcolax suppositories today and put her back on MiraLAX. 13. Deep vein thrombosis prophylaxis with Eliquis. 14. History of deep vein thrombosis and pulmonary embolism. Continue with Eliquis twice a day. 15. Electrolyte imbalance. I replaced the potassium a couple of days ago. Pending lab work today. 16. Severe pulmonary hypertension. Aware. 17. Hypoalbuminemia. She received albumin a couple of days ago, 50 g and yesterday another dose of 50 g again as well. Pending lab work today. 18. This patient is full code. 19. I will continue monitoring this patient in the intensive care unit. Her urine output has been decreasing. She is not eating too much, but she has pulmonary edema. I will monitor the hemoglobin closely, and I will ask for a new hemoglobin at 6 p.m. today. Depending on the results, I will transfuse this patient. CRITICAL CARE TIME: 35 minutes. cc: Maged Huerta MD
[2019-06-29] MEDS: MUCOMYST 20% INH SCH ×2 (07:58→19:35)
[2019-06-29] MEDS: MYCOSTATIN SUSP PO SCH ×4 (08:04→21:31)
[2019-06-29] MEDS: THERA M PLUS PO SCH (08:04)
[2019-06-29] MEDS: FOLIC ACID PO SCH (08:04)
[2019-06-29] MEDS: ELIQUIS PO SCH ×2 (08:04→21:31)
[2019-06-29] MEDS: MIRALAX PO SCH (08:04)
--- NOTE | 2019-06-29 08:59 | CONSULTATION ---
DATE OF CONSULTATION: 06/29/2019 REASON FOR ADMISSION: Right knee, right ankle injury. REASON FOR CONSULTATION: Acute on chronic kidney disease. CONSULTING PHYSICIAN: Dr. Park. HISTORY OF PRESENT ILLNESS: This is a 73-year-old female who was admitted to the hospital on after having suffered a fall. She was noted to have altered mental status, as well as injury to the right knee and right ankle. The patient has a history of morbid obesity, diastolic heart failure, and severe pulmonary hypertension. Initially, her creatinine was 1.2 on admission. It has remained stable, for the most part, throughout the hospitalization. Yesterday, she randell from 1.1 to 1.3. She had been given some fluids, as well as albumin. Did not have an increase in her urine output. Today, her creatinine is 1.5. She has a Dinh catheter, and over the last 24 hours, her urine output has been documented at 240 mL. The patient had been transferred to the intensive care unit yesterday secondary to worsening dyspnea. She did have a chest x-ray that showed pulmonary edema, plus or minus atelectasis or pneumonia to the left lower lobe. The patient, during the hospitalization, did have a CT of the abdomen and pelvis on 06/16/2019 with contrast, but none since. She has received Lasix during the hospitalization, as well as Levaquin. She has also received vancomycin, and it appears that her last dose was 06/18/2019. She was given some gentle hydration yesterday, along with albumin 50 grams, but did not have an increase in her urine output. Today, she is still slightly short of breath, but is able to converse appropriately. She is on a nasal cannula. She denies any nausea or vomiting, but states she really does not have an appetite. PAST MEDICAL HISTORY: Diabetes, hypertension, hyperlipidemia, morbid obesity, sickle cell trait, history of DVT, history of PE. PAST SURGICAL HISTORY: Bilateral knee surgery, hip surgery to the left, hernia repair. ALLERGIES: Ibuprofen, penicillin, diltiazem. CURRENT MEDICATIONS: Listed as hydrocodone/acetaminophen, Mucomyst, albuterol, DuoNeb, Eliquis, ceftaroline, Questran, dextrose, folic acid, levothyroxine, multivitamin, nystatin suspension, Zofran, Protonix, MiraLAX, and again, she received 50 grams of albumin about 12 hours ago. FAMILY HISTORY: Noncontributory. SOCIAL HISTORY: She is essentially bedridden. No ETOH, tobacco, or illicit drug use. Former smoker. REVIEW OF SYSTEMS: Decreased appetite, shortness of breath, otherwise essentially negative. PHYSICAL EXAMINATION: Vital Signs: Temperature 97.8 degrees, pulse 84, respiratory rate 23, blood pressure 131/77. Intake 1.5 L, output 240 mL. General: Chronically ill- appearing, elderly female, resting in bed. She is awake and alert. She is appropriate, in no distress. HEENT: Normocephalic, atraumatic. Conjunctivae are quite pale. Her oral mucosa is dry. She has a nasal cannula in place. Neck: Supple. She has trace JVD in a reclined position. Cardiovascular: Regular rate and rhythm with a gallop. Pulmonary: Decreased breath sounds, but no wheezes or rales. Abdomen: Obese, soft. Positive bowel sounds. : She has a Dinh catheter with yellow urine. Extremities: She has 1+ to 2+ lower extremity edema. She has scars to bilateral lower extremities from previous surgeries. She has dependent edema to the backs of the thighs. She is moving her upper extremities, but minimal movement to lower. Integumentary: Skin is warm and dry. She has significant vascular changes noted to bilateral lower extremities. Neurologic: Grossly nonfocal. IMAGING AND LABORATORY DATA: WBC of 5.8, hemoglobin 7.3, platelets 59,000. Sodium 141, potassium 4.4, CO2 of 14, chloride 114, BUN 27, creatinine 1.5 (1.3, 1.1). Imaging showed left lower lobe pneumonia. ASSESSMENT AND PLAN: 1. Acute on chronic kidney disease. She has a grade 2 diastolic dysfunction and some fluid overload. She has not been responsive to albumin. I will go ahead and order urine studies today, and a CT for imaging. 2. Previous healthcare-associated pneumonia. Had been on vancomycin, has been on Levaquin, and is no longer on those medications. Again, awaiting urine studies to determine fluid volume versus acute tubular necrosis. 3. Anemia. She is being followed by the primary. She is on chronic anticoagulant. 4. History of deep venous thrombosis. Complicates assessment of her edema. 5. Fluid volume. Again, she is in positive fluid balance overnight, even with the dosing of Lasix and albumin. Await imaging. 6. Hypertension, currently controlled. Dictated by GAYLE Pleitez for Derrek Mullen MD Face to face encounter, data reviewed, discussed with Temo Spicer on 06/29/18. I agree with the above assessment and plan of care. cc: Derrek Mullen MD [facility]
--- NOTE | 2019-06-29 09:15 | Diag Imaging Result Doc PS360 ---
CT ABDOMEN/PELVIS W/O CONTRAST - 06/29/2019 INDICATION: decreased renal fx r/o hydro COMPARISON: 06/16/2019 FINDINGS: There is grossly stable complete consolidation of the left lower lobe. Stable cardiomegaly. There is some patchy atelectasis in the right lower lobe. The liver is probably fatty. There is a tiny subcapsular liver fluid collection anteriorly. This measures about 8 x 1.5 cm. There is a stable stone in the lower pole the left kidney measuring about 8 mm. No hydronephrosis. Stable surgical clips and suture lines in the retroperitoneum. There is some trace indistinct fluid in the right lower quadrant that is nonspecific. Dinh catheter in the urinary bladder. Rectum is normal. Moderate vascular disease of the pelvis and femoral arteries. Stable left total hip prosthesis. Stable severe body wall edema. Stable numerous compression fractures in the spine. IMPRESSION: Slight increase in indistinct fluid in the right lower quadrant. Fatty liver. Tiny subcapsular liver fluid collection. All other findings appear stable from prior. This exam was performed using automated exposure control, adjustment of mA or kV according to patient size, and/or use of iterative reconstruction technique Electronically signed by Al Manzo 06/29/2019 9:13 AM
[2019-06-29 10:09] LABS: URINE SOURCE CATH
[2019-06-29 10:35] LABS: UR CREAT RANDOM 127.9 mg/dL (11-20)
[2019-06-29 10:36] LABS: BILIRUBIN URINE NEGATIVE (NEGATIVE); BLOOD URINE MODERATE (NEGATIVE); COLOR ORANGE; GLUCOSE URINE NEGATIVE (NEGATIVE); KETONE URINE NEGATIVE (NEGATIVE); LEUKOCYTES URINE LARGE (NEGATIVE); NITRITE URINE NEGATIVE (NEGATIVE); PROTEIN URINE 200 mg/dL (NEGATIVE); SP GRAVITY URINE 1.017; TURBIDITY URINE TURBID (CLEAR); UROBILINOGEN URINE NORMAL (NORMAL)
[2019-06-29 10:40] LABS: UR EPITHELIAL CELLS <10 /HPF (<10); URINE BACTERIA NEGATIVE /HPF; URINE RBC TNTC /HPF (<10); URINE WBC TNTC /HPF (<10)
[2019-06-29 10:42] LABS: URINE YEAST PRESENT
[2019-06-29 10:43] LABS: URINE CASTS NONE SEEN; URINE CRYSTALS NONE SEEN; URINE SMALL ROUND CELLS NONE SEEN
[2019-06-29] MEDS: LASIX IV SCH (13:30)
[2019-06-29] MEDS: ALBUMIN 25% IV SCH (13:30)
--- NOTE | 2019-06-29 16:09 | PULMONOLOGY PROGRESS NOTE ---
DATE: 06/29/2019 SUBJECTIVE: The patient is arousable. She denies pain. She is oriented. OBJECTIVE: Vital Signs: The patient is afebrile. Blood pressure 123/74, heart rate 81, respiratory rate 20, oxygen saturation 97%. HEENT: Pupils are equal and reactive. Oropharynx appears clear. Neck: Supple. Chest: Reveals decreased breath sounds left base with occasional rhonchi. Cardiac exam: S1, S2. Abdomen: Obese and soft. Extremities: Without edema. LABORATORIES: CT scan of the abdomen and pelvis reveals severe body wall edema, consolidation of the left lower lobe, cardiomegaly, fatty liver, with small increase in fluid in the right lower quadrant. Arterial blood gas reveals a pH 7.32, pCO2 of 31, PO2 of 73. White blood count 5.82, hemoglobin 7.3, platelet count 59,000. IMPRESSIONS: A 73-year-old with: 1. Chronic hypoxemic respiratory failure. 2. Left lower lobe pneumonia. 3. Diastolic dysfunction. 4. Morbid obesity with a body mass index of 41. 5. Bed-bound status. DISCUSSION: A 73-year-old with problems outlined above. It will be difficult to clear her pneumonia because she is not ambulatory and due to her morbid obesity, which makes it difficult to expand the lung and help clear this pneumonia. RECOMMENDATIONS: 1. Continue oxygen for hypoxemic respiratory failure. 2. Encourage incentive spirometry. 3. Continue bronchodilators with mucolytics. 4. Consider additional Lasix, but it is not clear she will tolerate it from a kidney standpoint. cc: Saud Garcia MD
[2019-06-30] MEDS: LASIX IV SCH ×2 (00:19→12:11)
[2019-06-30] MEDS: TEFLARO 600 MG in NS 250 ML IV SCH ×2 (02:33→14:45)
[2019-06-30] MEDS: DUONEB (A & A) INH SCH ×6 (03:17→23:12)
[2019-06-30] MEDS: PROTONIX IV SCH ×2 (05:45→08:05)
[2019-06-30] MEDS: SYNTHROID IV SCH ×2 (05:45→06:01)
[2019-06-30 06:49] LABS: BASO# 0.02 X1000 (0.0-0.2); BASO% 0.3 % (0.0-0.8); EOS# 0.06 X1000 (0.0-0.7); HEMATOCRIT 21.7 % (37.0-47.0); HEMOGLOBIN 6.8 g/dL (12.0-16.0); IMM GRAN# 0.02 X1000 (0.0-0.04); IMM GRAN% 0.3 % (0.0-0.5); LYMPH# 0.73 X1000 (1.2-3.4); LYMPH% 12.1 % (20.5-51.1); MCH 29.6 PG (27-31); MCHC 31.3 g/dL (33-37); MCV 94.3 FL (81-99); MONO% 6.6 % (1.7-9.3); NEUT# 4.79 X1000 (1.4-6.5); NEUT% 79.7 % (42.2-75.2); PLT 40 X1000 (130-400); RDW 16.7 % (11.5-14.5); WBC 6.02 X1000 (4.8-10.8)
[2019-06-30] MEDS ORDERED: NS 500 ML IV ONE (06:55)
--- NOTE | 2019-06-30 07:34 | Diag Imaging Result Doc PS360 ---
EXAM: CHEST-PORTABLE 06/30/2019 HISTORY: dyspnea TECHNIQUE: AP portable erect at 0526 COMMENT: There is a left PICC line with its tip at the confluence of brachiocephalic veins. There is increased pulmonary vascularity, cardiomegaly and interstitial pulmonary edema. In addition there is opacification of the lingula and portions of the left lower lobe which may be due to atelectasis or pneumonia. IMPRESSION: Pulmonary edema. Atelectasis versus pneumonia in the lingula and left lower lobe. Electronically signed by Alna Eastman 06/30/2019 7:32 AM
[2019-06-30] MEDS: MIRALAX PO SCH (08:05)
[2019-06-30] MEDS: ALBUMIN 25% IV SCH (08:05)
[2019-06-30] MEDS: THERA M PLUS PO SCH (08:05)
[2019-06-30] MEDS: MYCOSTATIN SUSP PO SCH ×5 (08:05→21:48)
[2019-06-30] MEDS: FOLIC ACID PO SCH (08:05)
--- NOTE | 2019-06-30 08:14 | PROGRESS NOTE ---
DATE: 06/30/2019 SUBJECTIVE: The patient is sleepy, but arousable. Vital signs are stable. She is answering most of my questions and following commands. She is not oriented to time, but she is oriented to place and person and date of . Pending CMP at this moment. CBC showed a hemoglobin of 6.8 and I will give her just 1 unit of blood. Her urine output is still low but seems to be a little bit better compared with yesterday. She has been having bowel movements. OBJECTIVE: Vital Signs: Temperature 97.8 degrees, pulse 18, respiratory rate 25, blood pressure 94/61, oxygen saturation 94% on 2 L of nasal cannula. HEENT: Head normocephalic. No trauma. PERRLA. Neck: Supple. No JVD. No masses. Central trachea. Chest: Decreased breath sounds globally with bilateral crackles at the bases. Some rhonchi at the level of the left lower lobe. Abdomen: Soft, protuberant. No hepatosplenomegaly. Extremities: 1+ lower extremity edema. No clubbing. No cyanosis. She has chronic venous changes, especially on the right side with pain to palpation. Neurological: The patient is sleepy, but arousable. She is oriented x2 today. She is not oriented to time. She is not agitated. She is following commands. She does have generalized weakness. LABORATORY: WBC 6, hemoglobin 6.8, hematocrit 21.7, platelets 42,000. Glucose 74. ASSESSMENT AND PLAN: 1. Septic shock due to healthcare-associated pneumonia. Infectious Disease Department on board. Continue antibiotics. She used to be on pressors but not anymore. 2. Metabolic encephalopathy, better. 3. Oral thrush. Continue Nystatin by mouth. 4. Fluid overload. Her urine output has decreased, but seems to be a little bit better compared with yesterday. She has been getting albumin and Nephrology Department has been evaluating this patient and they recommended more albumin. We will monitor. 5. Acute on chronic kidney disease, as above. 6. Hypoxemic respiratory failure. This is not new. She has been on oxygen at home, like it looks acute on chronic, but she has been without oxygen most of her hospitalization and the oxygenation was fine, except for a couple days ago that she started having hypoxemia, but now is better with oxygen. She is overloaded, but I am not quite sure if she can tolerate the Lasix given her kidney dysfunction. 7. Hypoglycemia. Continue to monitor. 8. Left lower lobe pneumonia. Continue antibiotics. 9. Decubitus ulcers. We will monitor. Wound Care on board. Patient is basically bed bound. 10. Chronic thrombocytopenia. Platelet count has been dropping so I will stop the anticoagulation and I will ask the Hematology Oncology Department to evaluate this patient. 11. Anemia. Her hemoglobin dropped to 6.8. I will request just 1 unit of PRBC. 12. Constipation, resolved. 13. Deep vein thrombosis prophylaxis. She has been getting Eliquis, which I will stop due to her thrombocytopenia. 14. History of deep venous thrombosis and PE, aware. Again, I will stop the Eliquis that she has been getting twice a day because of her thrombocytopenia. I will ask Hematology/Oncology Department to evaluate this patient. 15. Electrolyte imbalance. Pending CMP. 16. Severe pulmonary hypertension with likely diastolic dysfunction. Aware. 17. Hypoalbuminemia. We will continue to replace. 18. This patient is full code. cc: Maged Huerta MD
[2019-06-30 08:46] LABS: ALB/GLOB RATIO 1.4; ALBUMIN 3.2 g/dL (3.5-5.0); CALCIUM 10.4 mg/dL (8.8-10.2); CREATININE 1.7 mg/dL (0.5-0.9); MAGNESIUM 1.7 mg/dL (1.5-2.7); POTASSIUM 4.2 mmol/L (3.5-5.1); TOTAL BILIRUBIN 1.09 mg/dL (0.20-1.00); TOTAL PROTEIN 5.5 g/dL (6.3-8.3)
[2019-06-30] MEDS: D50W SYRINGE IV PRN (08:53)
--- NOTE | 2019-06-30 10:17 | INFECTIOUS DISEASE PROGRESS NO ---
DATE: 06/30/2019 PRESENT ILLNESS: The patient has a left lower lobe pneumonia and oral candidiasis. MEDICATIONS: The patient has been on antibiotics to treat her pneumonia for a total of 10 days and currently she is on ceftaroline. The patient has been on ceftaroline for 4 days. The patient is on nystatin swish and swallow for her oral candidiasis. PHYSICAL EXAMINATION: Vital Signs: Temperature is 98 degrees, pulse 80, respirations 25, blood pressure 94/61. General: This is an obese, chronically ill-appearing, elderly female. She is very lethargic today. She does not appear to be in any acute distress. Head/eyes/ears/nose/throat: She does not have any drainage from the nose or ears. She does not have any white patches in her mouth. Neck: No pain with passive movement. Lungs: Clear to auscultation. Cardiovascular: Heart rate is regular. Abdomen: Soft and not tender. Extremities: The patient has a PICC in the left arm. The site is not erythematous or purulent. Neurologic: As mentioned above, is very lethargic today. She did follow request, however, to open her mouth and move her arms. LAB AND X-RAY: CT scan of the abdomen shows consolidation of the left lower lobe of the lung. CBC has been ordered, the results of which are pending. There does not appear to be any BMP or CMP ordered today. Urinalysis showed white cells but no bacteria. ASSESSMENT AND PLAN: Patient has pneumonia and my plan is to continue with ceftaroline. She also has oral candidiasis and I am also going to continue with nystatin swish and swallow. COMORBIDITIES: The patient is elderly, she is obese and she has thrombocytopenia, anemia, diabetes, and a history of deep venous thrombosis with pulmonary emboli. cc: Richi Mcgill MD
[2019-06-30] MEDS: MUCOMYST 20% INH SCH ×2 (11:37→19:20)
--- NOTE | 2019-06-30 12:50 | NEPHROLOGY PROGRESS NOTE ---
DATE: 06/30/2019 SUBJECTIVE: Patient resting in bed. She is drowsy. No issues overnight. OBJECTIVE: Vital signs: Temperature 97.8 degrees, pulse 80, respiratory rate 25, blood pressure 94/61. Intake 1 L, output 785 mL. General: This is a chronically ill- appearing elderly female, currently resting in bed. She has some increased work of breathing but is in no acute distress. HEENT: Normocephalic, atraumatic. PERRL. Oral mucosa dry. Neck: Supple with positive JVD. Trachea midline. Cardiovascular: Regular rate and rhythm. Gallop. Pulmonary: Decreased breath sounds. She has some rales to the posterior and increased work of breathing. Abdomen: Soft, positive bowel sounds. Genitourinary: Dinh catheter. Extremities: 2+ lower extremity edema. Integumentary: Skin warm and dry. Neurological: Drowsy. LABORATORY DATA: Pending. IMAGING: Chest x-ray this morning with pulmonary edema, atelectasis versus pneumonia in the lingula and left lower lobe. ASSESSMENT AND PLAN: 1. Acute on chronic kidney disease. Her urine studies yesterday did not indicate prerenal. She did have increased proteinuria, moderate blood, large leukocytes, and too numerous to count white blood cells. She had a CT of the abdomen and pelvis that showed significant body wall edema. Her renal function is pending. Poor dialysis candidate. 2. Respiratory distress worsening. Has not been responsive to albumin. 3. Proteinuria hematuria. I will go ahead and send of complements, etc. 4. Respiratory failure. Followed by primary Pulmonology. Dictated by GAYLE Pleitez for Derrek Mullen MD Face to face encounter, data reviewed, discussed with Temo Spicer on 06/30/18. I agree with the above assessment and plan of care. cc: Derrek Mullen MD [facility]
[2019-06-30 14:08] LABS: INR 1.83; PROTIME 21.6 Seconds (11.0-16.0)
[2019-06-30 14:09] LABS: PTT 39.6 Seconds (22.3-41.8)
--- NOTE | 2019-06-30 22:46 | PULMONOLOGY PROGRESS NOTE ---
DATE: 06/30/2019 SUBJECTIVE: The patient is awake and alert. She denies shortness of breath. She reports her breathing is at baseline. She is without specific complaints. OBJECTIVE: Vital Signs: The patient has been afebrile for the last 24 hours. Blood pressure 116/79, heart rate 91, oxygen saturation 93%. HEENT: Pupils are equal and reactive. Oropharynx appears clear. Neck: Supple. Chest: Reveals crackles and decreased breath sounds in left base. Cardiac exam: S1, S2. Abdomen: Obese and soft. Extremities: Without edema. IMAGING: Chest x-ray reveals continued opacification at the left base. IMPRESSION: A 73-year-old with: 1. Chronic hypoxemic respiratory failure. 2. Left lower lobe pneumonia. 3. Diastolic dysfunction. 4. Morbid obesity. 5. Bed-bound status. PLAN: 1. Continue bronchial hygiene. 2. Encourage incentive spirometer. 3. Continue oxygen. 4. Prognosis is guarded. With her weight and bed-bound status, it will be difficult to clear this pneumonia. cc: Saud Garcia MD
[2019-07-01] MEDS: TEFLARO 400 MG in NS 250 ML IV SCH ×2 (02:04→14:35)
[2019-07-01] MEDS: LASIX IV SCH (02:04)
[2019-07-01] MEDS: DUONEB (A & A) INH SCH ×6 (03:11→23:47)
[2019-07-01 05:43] LABS: HEMATOCRIT 24.1 % (37.0-47.0); HEMOGLOBIN 7.6 g/dL (12.0-16.0); MCH 30.2 PG (27-31); MCHC 31.5 g/dL (33-37); MCV 95.6 FL (81-99); PLT 42 X1000 (130-400); RBC 2.52 XMIL (4.2-5.4)
[2019-07-01 05:55] LABS: ALBUMIN 3.3 g/dL (3.5-5.0); CALCIUM 9.9 mg/dL (8.8-10.2); PHOSPHORUS 3.4 mg/dL (2.7-4.5); POTASSIUM 4.3 mmol/L (3.5-5.1)
[2019-07-01] MEDS: SODIUM CHLORIDE 0.9% INJ SCH (06:28)
[2019-07-01] MEDS: PROTONIX IV SCH (06:28)
[2019-07-01] MEDS: SYNTHROID IV SCH (06:28)
[2019-07-01] MEDS: SODIUM CHLORIDE 0.9% INJ PRN (06:29)
--- NOTE | 2019-07-01 07:36 | Diag Imaging Result Doc PS360 ---
EXAM: CHEST-PORTABLE INDICATION: dyspnea TECHNIQUE: One view COMPARISON: 06/30/2019 FINDINGS: The left PICC line is in stable position at the confluence of the brachiocephalic veins. Pulmonary edema and pulmonary venous congestion is approximately stable. The more dense opacity at the left lower lung zone suggesting atelectasis and/or pneumonia is unchanged. No new consolidation is identified. Cardiac silhouette is stable. IMPRESSION: Stable chest. Electronically signed by Miguel Hart 07/01/2019 7:33 AM
[2019-07-01] MEDS ORDERED: LASIX IV SCH (07:45)
[2019-07-01] MEDS ORDERED: NITROGLYCERIN TOP ONE (07:45)
[2019-07-01] MEDS: MUCOMYST 20% INH SCH ×2 (07:53→19:36)
[2019-07-01] MEDS: LASIX 200 MG in NS 25 ML IV SCH ×2 (08:57→20:26)
[2019-07-01] MEDS: ALBUMIN 25% IV SCH (09:08)
--- NOTE | 2019-07-01 09:18 | PROGRESS NOTE ---
DATE: 07/01/2019 SUBJECTIVE: This patient is sleepy, but arousable. She seems to be more tired, more short of breath. Her kidney function is getting a little bit worse. She is not a good candidate for any kind of dialysis treatment. Low urine output. Positive bowel movement. I have been discussing with the daughter before the possibility of hospice, but this patient is still full code. I will try to talk to her again today and I will ask Palliative Care to re-evaluate this patient. Her prognosis is poor due to her multiple issues and comorbidities, age. She is bed bound and is going to be extremely hard to recover the kidneys and get rid of the pneumonia. OBJECTIVE: Vital Signs: Temperature 98 degrees, pulse 105, respiratory rate 36, blood pressure 129/92, oxygen saturation 92 on 3 L of nasal cannula. HEENT: Head normocephalic. No trauma. PERRLA. Neck: Supple. No JVD. No masses. Central trachea. Chest: Decreased breath sounds globally with bilateral crackles at the bases and some rhonchi as well. Abdomen: Soft, protuberant. No hepatosplenomegaly. Extremities: There is 1+ to 2+ lower extremity edema. No clubbing. No cyanosis. She has chronic venous changes, especially on the right side with pain to palpation. Neurological: This patient is sleepy, but arousable. She is oriented x1. It is really hard for her to talk at this moment. She is not agitated. She is following commands on and off but she is weak. LABORATORY: WBC 7, hemoglobin 7.6, hematocrit 24.1, platelets 42,000. Sodium 142, potassium 4.3, chloride 114, bicarbonate 17, BUN 31, creatinine 2, glucose 80, calcium 9.9, magnesium 1.8. ASSESSMENT AND PLAN: 1. Septic shock due to healthcare-associated pneumonia. She is no longer on pressors. Infectious disease and pulmonary department on board. She has been getting antibiotics but, given her issues with bedbound and low motility, it is going to be really hard to get rid of this infectious process. 2. Metabolic encephalopathy. This is better, but she is extremely weak. She is following commands a little bit and answering and she is able to say her name. 3. Oral thrush. Continue with statin by mouth. 4. Fluid overload. Today, her urine output has decreased. Creatinine is getting worse. She has not been really responding to albumin. Nephrology department following this patient. She is a poor candidate for dialysis. 5. Acute on chronic kidney disease, as above. 6. Hypoxemic respiratory failure, acute on chronic. She has been on oxygen at home, but she has been without oxygen most of her hospitalization and her oxygen saturation was fine, except that 3 days ago, she started desaturating. She has fluid overload but I do not think she is going to be able to tolerate Lasix. We have been using albumin. 7. Hypoglycemia. Continue to monitor. 8. Left lower lobe pneumonia. Continue with antibiotics per infectious disease department. 9. Decubitus ulcers. We will monitor. Wound Care on board. Patient is basically bed bound and the ulcer was superficial. 10. Chronic thrombocytopenia. About the same compared with yesterday. 11. Anemia status post 1 packed red blood cells. Hemoglobin is above 7. 12. Constipation, resolved. 13. Deep vein thrombosis prophylaxis. She has been on Eliquis which I have stopped because of the thrombocytopenia. 14. History of deep venous thrombosis and pulmonary embolism, aware. Again I have stopped the Eliquis because of the thrombocytopenia and the hematology/oncology department has been consulted, but I do not think we are going to be able to do too much for this patient. 15. Electrolyte imbalance, aware. 16. Severe pulmonary hypertension with likely diastolic dysfunction, aware. 17. Hypoalbuminemia. Continue to replace. Today she will get the last dose of albumin. 18. This patient is still full code, but I have requested a re-evaluation by Palliative Care. I do believe this patient needs to be on hospice. She is a poor candidate for dialysis or any kind of aggressive measures. Her prognosis is poor. CRITICAL CARE TIME: 35 minutes. cc: Maged Huerta MD
[2019-07-01] MEDS: MIRALAX PO SCH (09:30)
[2019-07-01] MEDS: FOLIC ACID PO SCH (09:30)
[2019-07-01] MEDS: MYCOSTATIN SUSP PO SCH ×4 (09:31→20:27)
[2019-07-01] MEDS: THERA M PLUS PO SCH (09:31)
[2019-07-01 09:40] LABS: ALLEN TEST YES; BE -10.9 mmoll (-3.0-3.0); BLOOD TYPE ARTERIAL; HCO3-(ACT) 16.4 mmoll (20.0-26.0); METHB 0.3 % (0.0-1.5); O2HB 93.2 % (95.0-99.0); PCO2(98.6) 42 mmHg (35-45); PO2(98.6) 66 mmHg (60-100); SAMPLE BLOOD; SAO2 95.5 % (95.0-100.0); THB 8.3 g/dL (11.5-17.4)
[2019-07-01 09:41] LABS: MODALITY VENTIMASK
--- NOTE | 2019-07-01 09:53 | PROGRESS NOTE ---
DATE: 07/01/2019 I just had a large conversation with Mrs. Camejo's daughter. I talked to her about her general condition, and her poor prognosis. We also discussed her resuscitation status, and advance directive for at least 30 minutes. We have placed this patient now DNR. Initially, she was full code. Unfortunately, she cannot take care of her mom at home so I will discuss the case with the palliative care team to see if we have other options for her. I do believe hospice is appropriate. What she wants today is to continue treatment for at least 1 or 2 more days to see how she does. Dr. Mullen is going to give her high dose of Lasix to see if she has some kind of response, but tomorrow we need to talk to the daughter again to see if we can keep the patient on comfort measures only and/or send her to a place with comfort measures as well. Everything will depend on the response of the treatment today. cc: Maged Huerta MD
[2019-07-01] MEDS: ATROPINE 1 % OPHTH SOLN SL PRN (12:00)
--- NOTE | 2019-07-01 13:16 | INFECTIOUS DISEASE PROGRESS NO ---
DATE: 07/01/2019 PRESENT ILLNESS: The patient has left lower lobe pneumonia and oral candidiasis. MEDICATIONS: The patient has been on antibiotics to treat her pneumonia for a total of 11 days, and currently she is on ceftaroline. This is the 5th day of treatment with that agent. The patient also receives nystatin swish and swallow for oral candidiasis. PHYSICAL EXAMINATION: Vital Signs: Temperature is 98.2 degrees, pulse 105, respirations 36, and blood pressure 129/92. General: This is an obese, chronically ill-appearing elderly female. She is very lethargic. Head, Eyes, Ears Nose and Throat: No drainage noted from the nose or the ears. She did not give any indication that she hears my spoken words, and most of the time she keeps her eye eyelids closed and so I cannot evaluate her vision. Neck: No apparent pain with passive movement. Lungs: Clear to auscultation. Cardiovascular: Heart rate is regular with fairly frequent PACs. Abdomen: Soft and nontender. Extremities: The patient has a PICC in the left arm. The site is not purulent or bleeding. Neurologic: The patient is very lethargic. She did not move her extremities to request. LABORATORY AND X-RAY: The patient's CBC shows a white count of 7000, hemoglobin 7.6, platelet count 42,000, creatinine is 2. GFR is 29. Alkaline phosphatase is 159. Chest x-ray shows pulmonary edema with left lower lobe pneumonia and/or atelectasis. ASSESSMENT AND PLAN: The patient has pneumonia. My plan is to continue ceftaroline. She also has oral candidiasis, and we will try to continue with nystatin swish and swallow. COMORBIDITIES: The patient is elderly, obese, and she has thrombocytopenia, anemia, diabetes, and a history of deep venous thrombosis with pulmonary emboli. cc: Richi Mcgill MD
--- NOTE | 2019-07-01 16:15 | PROVIDER PROGRESS NOTE ---
Progress Note Subjective: pt voices not being able to breath. She is moaning out with each breath. Objective: temperature 98.0, pulse 105, respirations 36, but pressure 129/92, 02 sat 91% on 3 L nasal cannula. General: ill obese -[place] female lying in bed in some respiratory distress HEENT: normocephalic, atraumatic, pupils equal and reactive, mucous membranes dry. Skin: warm and dry. Neck: supple, external engorged neck veins. Cardiovascular: S1S2 regular rate and rhythm, no murmur. gallop appreciated. Respiratory: scattered Rhonchi anteriorly with increased work of breathing. Abdomen: obese, soft, nontender, nondistended, bowel sounds active. Extremities: 2+ pitting to BLE :Dinh in place. Neurological: Alert, able to follow most commands. Labs: WBC seven, hemoglobin 7.6, hematocrit 24.1, platelet count 42, sodium 142, potassium 4.3, chloride 114, carbon dioxide 17, BUN 31, creatinine 2.0. Intake 1010, output 785. Impression: Acute on chronic kidney disease. Likely ischemic acute tubular necrosis. BUN and Creatinine are increasing. Urine output is marginal and respiratory status is declining with albumin and current dose of lasix. We will try increasing lasix to 200mg lasix q12 and starting nitroglycerin paste. Poor candidate for [employer] secondary to her poor functional status. Blood pressure. Stable. Anemia. 1 unit PRBC transfused yesterday. Electrolytes. Stable. Acid base balance. Observe.
[2019-07-01] MEDS: D50W SYRINGE IV PRN (17:42)
--- NOTE | 2019-07-01 21:41 | HEMO/ONC CONSULTATION ---
DATE: 06/30/2019 ADMITTING PHYSICIAN: Dr. Bud Villavicencio. REQUESTING PHYSICIAN: Dr. Bud Villavicencio. We appreciate this consult. CHIEF COMPLAINT: Thrombocytopenia. HISTORY OF PRESENT ILLNESS: Ms. Mary Camejo is a 73-year-old female with a history of diabetes mellitus type 2, hypertension, hyperlipidemia, morbid obesity, and a history of PE and DVT. The patient presented to [facility] Emergency Department status post a fall. The patient's family reported that she had been confused lately and apparently fell out of bed. COURSE IN EMERGENCY DEPARTMENT: The patient was found to be hypoglycemic and was given 1 amp of D50. She was admitted for evaluation. Encephalopathy persisted. Additionally, the patient was ultimately found to have a large left pleural effusion and pneumonia with sepsis. The patient was admitted to ICU secondary to septic shock. The patient has been on multiple antibiotics. She was found to have thrombocytopenia with a worsening platelet count. The day of consultation, platelet count was found to be significantly decreased at 40,000. We are consulted for the same. PAST MEDICAL HISTORY: As in HPI. PAST SURGICAL HISTORY: 1. Bilateral knee surgery. 2. Left hip surgery. 3. Hernia repair. SOCIAL HISTORY: The patient is a former smoker. She does not use alcohol or illicit drugs. She is mostly bed bound. MEDICATIONS ON ADMISSION: 1. Albuterol. 2. Eliquis. 3. Celebrex. 4. Folic acid. 5. Synthroid. 6. Losartan. 7. Metformin. 8. Robaxin. ALLERGIES: To penicillin, diltiazem, and ibuprofen. REVIEW OF SYSTEMS: A 14-point review of systems was attempted and is unable to be obtained secondary to encephalopathy. PHYSICAL EXAM: General: Ms. Camejo is a 73-year-old female lying supine in bed, on BiPAP, in no acute distress. Vital Signs: Temperature 97.8 degrees, blood pressure 111/78, heart rate 88, respirations 20, O2 saturation is 95% on 2 L. HEENT: Normocephalic, atraumatic. Mucous membranes pale and moist. Sclerae anicteric. Extraocular movements intact. Neck: Supple. Lungs: With decreased breath sounds throughout. CV: S1, S2 is heard without murmur, rub or gallop. Abdomen: Soft, nontender, nondistended. Bowel sounds positive all quadrants. No rebound or guarding noted. Extremities: The patient does have trace bilateral lower extremity edema. Dermatologic: No rashes, bruises or lesions. Neurologic: The patient is very somnolent. She does open eyes to verbal stimuli. She has no apparent focal deficits. LABORATORY DATA: Hemoglobin 6.8, hematocrit 21.7, white blood cell count is 6.02, platelets 40,000. Sodium 141, potassium 4.2, chloride 113, CO2 16, BUN 31, creatinine 1.7, and glucose is 77. ASSESSMENT AND PLAN: 1. Thrombocytopenia of questionable etiology in a patient who has been on multiple antibiotics as well as heparin. We will initiate a workup at this time. Would recommend sequential compression devices. Additionally upon discharge, we would recommend therapeutic Xarelto. 2. Healthcare-associated pneumonia with sepsis and shock. The patient is currently on antibiotics and Infectious Disease is following. 3. Metabolic encephalopathy persists. Workup is pending. 4. Fluid overload, improving on albumin. Nephrology is currently following. 5. Acute on chronic kidney disease, stable at this time. Nephrology is following. 6. Hypoxemic respiratory failure. The patient is currently wearing BiPAP and Pulmonology is following. 7. Deep vein thrombosis and pulmonary embolus. Eliquis is being held secondary to #1. Would recommend sequential compression devices at this time. 8. Anemia. The patient is scheduled for packed red blood cells. Would continue to monitor hemoglobin and transfuse in the setting of bleeding or if hemoglobin drops below 8.0. We will follow along with you and make further recommendations pending outcomes. The above reflects the history, exam, assessment, and plan of Dr. Scott. Dictated by GAYLE Daniels for Silverio Scott MD cc: GAYLE Daniels MD
[2019-07-02] MEDS: D50W SYRINGE IV PRN ×3 (00:06→09:20)
[2019-07-02] MEDS: TEFLARO 400 MG in NS 250 ML IV SCH (01:47)
[2019-07-02] MEDS: DUONEB (A & A) INH SCH ×4 (03:29→15:44)
[2019-07-02] MEDS: SYNTHROID IV SCH (06:20)
[2019-07-02] MEDS: PROTONIX IV SCH (06:20)
[2019-07-02] MEDS: SODIUM CHLORIDE 0.9% INJ SCH (06:20)
[2019-07-02] MEDS: SODIUM CHLORIDE 0.9% INJ PRN (06:20)
--- NOTE | 2019-07-02 06:23 | PULMONOLOGY PROGRESS NOTE ---
DATE: 07/01/2019 SUBJECTIVE: The patient is arousable. She has mild increased work of breathing. Her oxygenation is marginal on nasal cannula. OBJECTIVE: Vital Signs: The patient has been afebrile for the last 24 hours. Blood pressure 108/71, heart rate 96 respiratory rate 33, and oxygen saturation 90% HEENT: Pupils are equal. Oropharynx appears clear. Neck: Supple. Lungs: Chest reveals shallow breath sounds bilaterally. Cardiac: S1, S2. Abdomen: Obese and soft. Extremities: Reveal 2+ peripheral edema. LABORATORIES: White blood count 7.00, hemoglobin 7.6 and platelet count 42,000. Sodium 142, potassium 4.3, chloride 114, bicarbonate 17, BUN 31, and creatinine 2.0. Arterial blood gas reveals a pH of 7.20, pCO2 of 42, PO2 of 66. DIAGNOSTIC: Chest x-ray reveals cardiomegaly with dense consolidation of left lower lobe. IMPRESSION: A 73-year-old with: 1. Acute on chronic hypoxemic respiratory failure. 2. Left lower lobe pneumonia despite prolonged course of antibiotics. 3. Diastolic dysfunction. 4. Morbid obesity. 5. Bed-bound status. 6. Acute renal failure. DISCUSSION: A 73-year-old with problems outlined above. It has been difficult to clear her pneumonia because she is bed-bound. This along with her obesity is making it difficult to have her deep breathe, cough and clear the left lower lobe pneumonia. Her overall status continues to decline, and she has become progressively weak with progressive renal failure. Her prognosis is poor. End of life discussions have been held, and she will be allowed to have a natural if she has continued decline. At this juncture, Nephrology is attempting diuresis. PLAN: 1. We will support the respiratory system with BiPAP through the evening in an attempt to allow diuresis. 2. Continue oxygen. 3. Prognosis is poor. Anticipate palliative/hospice transition. cc: Saud Garcia MD
--- NOTE | 2019-07-02 06:43 | Diag Imaging Result Doc PS360 ---
CHEST-PORTABLE - 07/02/2019 INDICATION: dyspnea COMPARISON: 07/01/2019 FINDINGS: Stable left PICC line. Lung volumes are severely low even more so than prior. Stable cardiomegaly and pulmonary vascular congestion. Stable consolidation of the left lung base, likely mostly pleural effusion. There is probably a trace right pleural effusion. Stable interstitial pulmonary edema. IMPRESSION: No change from prior. Electronically signed by Al Manzo 07/02/2019 6:41 AM
[2019-07-02 07:00] LABS: HEMATOCRIT 22.4 % (37.0-47.0); HEMOGLOBIN 7.1 g/dL (12.0-16.0); MCH 30.6 PG (27-31); MCHC 31.7 g/dL (33-37); MCV 96.6 FL (81-99); RBC 2.32 XMIL (4.2-5.4)
[2019-07-02 07:01] LABS: PLT 27 X1000 (130-400)
[2019-07-02 07:09] LABS: ALBUMIN 3.1 g/dL (3.5-5.0); CALCIUM 10.7 mg/dL (8.8-10.2); CREATININE 2.2 mg/dL (0.5-0.9); PHOSPHORUS 3.1 mg/dL (2.7-4.5); POTASSIUM 4.2 mmol/L (3.5-5.1)
[2019-07-02] MEDS: MUCOMYST 20% INH SCH (07:58)
[2019-07-02] MEDS: FOLIC ACID PO SCH (09:29)
[2019-07-02] MEDS: THERA M PLUS PO SCH (09:30)
[2019-07-02] MEDS: MIRALAX PO SCH (09:30)
[2019-07-02] MEDS: MYCOSTATIN SUSP PO SCH ×2 (09:30→12:23)
[2019-07-02] MEDS: LASIX 200 MG in NS 25 ML IV SCH (09:44)
--- NOTE | 2019-07-02 11:59 | INFECTIOUS DISEASE PROGRESS NO ---
DATE: 07/02/2019 PRESENT ILLNESS: The patient has a left lower lobe pneumonia and oral candidiasis. MEDICATIONS: The patient has been on antibiotics now for 12 days and currently the patient is on ceftaroline, which is the 6th day of treatment with that agent. The patient also has nystatin swish and swallow ordered for her. PHYSICAL EXAMINATION: Vital Signs: Temperature is 98 degrees, pulse 91, respirations 33, blood pressure 110/69. General: This is an obese, chronically ill-appearing elderly female. she is in no acute distress. Head eyes, ears, nose, and throat: The patient is wearing a BiPAP mask. I did not see any drainage from her nose or ears. Neck: No stiffness to passive movement of the neck. Lungs: Clear to auscultation. Cardiovascular: Heart rate is regular. Abdomen: Soft and nontender. Neurologic: The patient is very lethargic. He did not respond to verbal stimuli. There was no tremor. Extremities: The patient has a PICC in the left arm. The site is not bleeding or purulent. LAB AND X-RAY: Chest x-ray by my reading shows left lung infiltrate. However, the radiologist has not made the reading, or if he has it is not back in the computer. Patient's IgG level is 642. The IgA level is 544. The IgG level is close to being normal that I think it clinically is not significant and does not merit having IVIG given to the patient. ASSESSMENT/PLAN: Patient has pneumonia. My plan is to continue ceftaroline for the pneumonia and also continue nystatin for the oral candidiasis. cc: Richi Mcgill MD MTDD
[2019-07-02] MEDS: ATROPINE 1 % OPHTH SOLN SL PRN (12:22)
--- NOTE | 2019-07-02 14:02 | PROGRESS NOTE ---
DATE: 07/02/2019 SUBJECTIVE: This morning Ms. Camejo continues to be on a BiPAP. She is able to say a few words. She responds to be doing well. Her caregiver from home was at the bedside at the time of the encounter. The daughter, who is her power of assistant county attorney, was not here. Per the nursing staff, she has just been same, unchanged. OBJECTIVE: Vital signs: Blood pressure is 93/55, pulse of 86, respirations 27, temperature 98.5 degrees, and the patient is saturating 93% on the BiPAP. General exam: Ms. Camejo is a 73-year- old elderly female. She is in bed. She is on the BiPAP. HEENT: Mucosa is pink and moist. Anicteric. Acyanotic. Neck: Supple. There is a positive JVD. Chest: Air entry is bilaterally reduced, more so to the left posterior lung field. Positive crackles. Cardiovascular: Regular rate and rhythm. GI/Abdomen: Soft. Bowel sounds present. Extremities: Some old changes on the lower extremities from stasis dermatopathy. The patient has bilateral knee replacement as well. LABORATORY DATA: Platelet count is down to 27. Chemistry: Creatinine is 2.2. MEDICATIONS: Include ceftaroline. The patient is on Lasix and all other medications have been reviewed. ASSESSMENT: 1. Septic shock secondary to healthcare-associated pneumonia complicated with encephalopathy, acute respiratory failure and acute kidney injury. 2. Fluid overload. The patient has been challenged with big doses of Lasix overnight. Her urine output has minimally improved to 655 in 24 hours. She still remains slightly edematous. Nephrology is on board. 3. Acute hypoxemic respiratory failure. Patient is on BiPAP. Pulmonary Medicine is on board. 4. Hypoglycemia. I think this is a reflection of the sepsis. 5. Severe left lower lobe pneumonia. 6. Worsening thrombocytopenia. 7. Poor prognosis. PLAN: So, in general, I think Ms. Camejo continues to be remarkably sick. She does not seem to have responded favorably to standard of care. Organ continues to fail. Her creatinine has gone up to 2.2 this morning with the Lasix challenge. I think her prognosis continues to be remarkably poor. Pending her daughter to come, so we can update her and then let her give us guidance as to her treatment plan. I have read from previous notes that discussions have been held with the daughter, and that the decision was to observe Ms. Camejo 24 hours on the Lasix challenge to see if anything improves. I am afraid from revision of her lab work and clinically, it looks like she is the same or slightly worse. Ms. Camejo has been in the hospital for 16 days. I think hospice consult will be appropriate. I am waiting on the family to come for that conversation. cc: Isaiah Turner MD
[2019-07-02] MEDS ORDERED: MYCOSTATIN SUSP PO PRN (17:15)
[2019-07-02] MEDS ORDERED: ATIVAN IV PRN (17:17)
--- NOTE | 2019-07-02 18:44 | PROVIDER PROGRESS NOTE ---
Progress Note Subjective: Pt mumbles not feeling well through her bipap mask Objective: temperature 98.5, pulse 86, respirations 28, blood pressure 93/55, 02 sat 96% on bipap General: ill obese -[place] female lying in bed in no acute distress HEENT: normocephalic, atraumatic, pupils equal and reactive, mucous membranes dry. Skin: warm and dry. Multiple bruises in different healing stages Neck: supple, external engorged neck veins. Cardiovascular: S1S2 regular rate and rhythm, no murmur. gallop appreciated. Respiratory: scattered Rhonchi anteriorly, but improved from yesterday Abdomen: obese, soft, nontender, nondistended, bowel sounds hypoactive. Extremities: 2+ pitting to BLE :Dinh in place. Neurological: Alert, able to follow most commands. Labs: WBC 6.70, hemoglobin 7.1, hematocrit 22.4, platelet count 27, sodium 143, potassium 4.2, chloride 114, carbon dioxide 17, BUN 33, creatinine 2.2. Intake 750, output 745. Impression: Acute on chronic kidney disease. Likely ischemic accute tubular necrosis. BUN and Creatinine are increasing. Urine output is not adequate considering High dose of Lasix scheduled. She is a poor candidate for NATIONAL ACCOUNT EXECUTIVE secondary to poor functional status. Discussed with family and they understand this. Hospice. Blood pressure. Stable. Anemia and thrombocytopenia. Electrolytes. Stable. Acid base balance. Observe. Medication review. Teflaro not 200.
[2019-07-02] MEDS: ALBUTEROL NEB INH PRN (19:31)
--- NOTE | 2019-07-03 00:40 | PULMONOLOGY PROGRESS NOTE ---
DATE: 07/02/2019 SUBJECTIVE: The patient is moaning. She remains on BiPAP. She did not have significant urine output increased with large dose of Lasix. OBJECTIVE: Vital Signs: The patient has been afebrile for the last 24 hours. Blood pressure 95/61, heart rate 67, respiratory rate 88, oxygen saturation 92%. HEENT: Pupils are equal and reactive. Oropharynx appears clear but evaluation is limited with BiPAP in place. Neck: Supple. Chest: Reveals shallow breath sounds bilaterally with rhonchi. She has decreased breath sounds left base. Cardiac: S1-S2. Abdomen: Obese and soft. Extremities: Reveal 1+ peripheral edema. LABORATORIES: Sodium 143, potassium 4.2, chloride 114, bicarbonate 17, BUN 33, creatinine 2.2. White blood count 6.70, hemoglobin 7.1, platelet count 27,000. IMPRESSION: A 73-year-old with: 1. Acute on chronic hypoxemic respiratory failure. 2. Left lower lobe pneumonia. 3. Diastolic heart failure. 4. Obesity. 5. Bed-bound status. 6. Acute renal failure. DISCUSSION: A 73-year-old with problems outlined above. Despite 16 days of intense hospital management, patient has not improved and has actually deteriorated. Chances of improvement are poor and she is unlikely to survive long-term. RECOMMENDATIONS: 1. Continue BiPAP for comfort. 2. Continue current antibiotics. 3. Anticipate ongoing end of life discussion/hospice. I spoke with the daughter this morning. cc: Saud Garcia MD
[2019-07-03] MEDS: ALBUTEROL NEB INH PRN ×6 (08:04→23:18)
[2019-07-03] MEDS: MORPHINE IV PRN (16:43)
--- NOTE | 2019-07-03 19:07 | PROGRESS NOTE ---
DATE: 07/03/2019 SUBJECTIVE: This morning, Ms. Camejo was seen on the medical floor. Yesterday I was notified by the palliative nurse that after her discussions with the family, the daughter made the decision to make Ms. Camejo on comfort care measures only, and that they will not pursue any more aggressive intervention. She also requested that Ms. Camejo be transferred from the ICU to the medical floor. We are still pending a son to come from out of state before the BiPAP will be taken off. This morning, the completions engineer was at the bedside at the time of the encounter. OBJECTIVE: Vital signs: Blood pressure is 87/64, pulse of 77, respiration is 19, temperature is 97.5 degrees, and patient was saturating 95% on BiPAP. General: Ms. Camejo is a 73-year-old, elderly, female. She is in bed. She is still on the BiPAP. HEENT: Mucosa is pink and moist. Anicteric. Acyanotic. Neck: Supple. Mild positive JVD. Respiratory: Air entry is bilaterally reduced. There are some transmitted sounds from the BiPAP. There are also marked crackles in the posterior lung oleary. Cardiovascular: Regular rate and rhythm. No murmurs, no rubs, no gallops. GI: Abdomen was soft. Bowel sounds present. Extremities: There are chronic changes from stasis dermatopathy. There are also bilateral scars on the knees from previous knee replacement surgery. RAYON WINDER: Patient is drowsy, but will barely open her eyes to command, and will withdrawal both lower extremities to painful stimulation. LABORATORY DATA: None for today. IMAGING STUDIES: None. CURRENT MEDICATIONS: Only for comfort care purposes. ASSESSMENT: 1. Septic shock, secondary to healthcare associated pneumonia, which has been complicated with encephalopathy, acute hypoxemic respiratory failure, and acute kidney injury. 2. Fluid overload. 3. Acute hypoxemic respiratory failure. Patient continues to be using BiPAP. 4. Hypoglycemia, improved. 5. Severe left lower lobe pneumonia. 6. Thrombocytopenia, presumably from overwhelming sepsis. 7. Extremely poor prognosis. PLAN: In general, I think Ms. Camejo continues to be remarkably sick. Family members have transitioned her to comfort measures only pending a son from out of town, for them to make further decisions. I think the ultimate plan is hopefully get Ms. Camejo home with hospice or GIP if she qualifies. cc: Isaiah Turner MD
--- NOTE | 2019-07-04 15:03 | PROGRESS NOTE ---
DATE: 07/04/2019 SUBJECTIVE: This morning, I saw Ms. Camejo. She was on the BiPAP. The daughter was at the bedside at the time of the encounter. The daughter refers that the mom has been fairly comfortable throughout the night. They are still waiting on the patient's son to come from out of town. OBJECTIVE: Vital signs: Blood pressure is 87/52, pulse of 83, respirations 12, temperature 99.4 degrees. General: Ms. Camejo is a 73-year-old female. She is in bed, still on the BiPAP. HEENT: Mucosa is pink and moist. Anicteric. Acyanotic. Neck: Supple. Chest: Good air entry bilateral. Some crepitations in the posterior lung oleary. Cardiovascular: Regular rate and rhythm. GI: Abdomen is soft. Bowel sounds present. Extremities: No pedal edema. Some chronic stasis dermatopathy is noted. There are bilateral scars on the knee from previous knee replacement surgery. NURSES' ASSOCIATION EXECUTIVE DIRECTOR: Patient is lethargic, will barely open the eyes to command. Will withdraw lower extremities to painful stimulation. LABORATORY DATA: No laboratory data today. ASSESSMENT: 1. Septic shock on presentation secondary to healthcare associated pneumonia, complicated with infection, encephalopathy, acute hypoxemic respiratory failure, and acute kidney injury. 2. Acute hypoxemic respiratory failure. Patient cycles between BiPAP and nasal cannula for now. We are still waiting on the family to come and make a decision. 3. Severe left lower lobe pneumonia. 4. Thrombocytopenia, presumably from overwhelming sepsis. 5. Hypoglycemia, improved. 6. Fluid overload. 7. Oliguric acute kidney injury. No recovery. PLAN: So in general Ms. Camejo continues to be remarkably sick. We are pending their son to come from out of state to make a decision to take care of the BiPAP. We will continue with the DRUPAL DEVELOPER measures for now. cc: Isaiah Turner MD
[2019-07-04] MEDS: MORPHINE IV PRN (21:44)
[2019-07-05] MEDS: ALBUTEROL NEB INH PRN ×3 (08:21→16:57)
[2019-07-05] MEDS: MORPHINE IV PRN ×2 (08:54→16:31)
[2019-07-05] MEDS ORDERED: ROBINUL PO ONE (11:33)
--- NOTE | 2019-07-05 12:13 | PROGRESS NOTE ---
DATE: 07/05/2019 SUBJECTIVE: This morning, I saw Ms. Camejo at the bedside with the daughter, two sons, and a [id number]. According to the daughter, Ms. Camejo has been fairly comfortable throughout the night. BiPAP was removed yesterday and she is currently on nasal cannula. OBJECTIVE: Vital Signs: Blood pressure is 97/59, pulse of 109, respirations are 29, temperature is 99.3 degrees. General Examination: Ms. Camejo is a 73-year-old, -Greek female. She is in bed. She does not seem to be in any distress. HEENT: Mucosa is pink and moist. Anicteric. Acyanotic. Neck: Supple. Chest: Air entry is bilaterally reduced. There are some crackles and rhonchi in both lung oleary. Cardiovascular: Regular rate and rhythm. GI: Abdomen is soft. REGIONAL ACCOUNT DIRECTOR: The patient is minimally responsive. Laboratory Data: None for today. ASSESSMENT: 1. Septic shock on presentation secondary to healthcare-associated pneumonia complicated with infectious encephalopathy, acute hypoxemic respiratory failure, acute kidney injury. 2. Thrombocytopenia secondary to overwhelming sepsis. 3. Hypoglycemia secondary to sepsis, improved. 4. Fluid overload. 5. Oliguric acute kidney injury. No recovery. PLAN: At this point, Ms. Camejo continues to be on comfort care measures and she is off the BiPAP. We are going to continue with DISABILITY BENEFITS SPECIALIST. Palliative medicine is on board. We will wait for hospice evaluation tomorrow to see if she will qualify for GIP. cc: Isaiah Turner MD
[2019-07-05] MEDS: ATROPINE 1 % OPHTH SOLN SL PRN ×2 (13:31→16:33)
[2019-07-06] MEDS: MORPHINE IV PRN (11:20)
[2019-07-06] MEDS: ALBUTEROL NEB INH PRN ×2 (12:07→15:39)
--- NOTE | 2019-07-06 16:22 | PROGRESS NOTE ---
DATE: 07/06/2019 SUBJECTIVE: I saw this patient in the morning; her son was at the bedside, and as per the son she was complaining of a little bit of pain and the nurse was notified and she was about to give her some treatment. We will continue with the same management, comfort measures only. OBJECTIVE: Vital Signs: Temperature 98.8 degrees, pulse 101, respiratory rate 34, blood pressure 98/60, oxygen saturation 90 on 5 L of nasal cannula. HEENT: Head normocephalic, no trauma. Neck: Supple. Chest: Decreased breath sounds bilaterally with some crackles and crepitus at the lung bases. Cardiovascular: RRR. Slightly tachycardic. Abdomen: Soft, distended. She grimaces a little bit with palpation. Neurological examination: This patient is minimally responsive, lethargic. LABORATORY: No lab work done. ASSESSMENT AND PLAN: 1. Septic shock on presentation secondary to healthcare-associated pneumonia, complicated with infectious encephalopathy. 2. Acute on chronic hypoxemic respiratory failure. 3. Acute kidney injury. 4. Thrombocytopenia. 5. Hypoglycemia. 6. Fluid overload. 7. Anemia. 8. Constipation. 9. History of deep venous thrombosis and pulmonary embolism. 10. Severe pulmonary hypertension with likely diastolic dysfunction. 11. Electrolyte imbalance. 12. Hypoalbuminemia. Overall, her prognosis is poor. We have been discussing this with the family, and now this patient is in comfort measures only. I will continue with the same management. cc: Maged Huerta MD
[2019-07-07 08:24] VITALS: BP 74/56
--- NOTE | 2019-07-07 08:32 | EKG Report ---
Test Performed on : 07/07/2019 08:22:29 AM Test Reason : Asystole Blood Pressure : / mmHG Vent. Rate : 000 BPM Atrial Rate : 000 BPM P-R Int : 000 ms QRS Dur : 000 ms QT Int : 000 ms P-R-T Axes : 000 000 000 degrees QTc Int : 000 ms Critical Test Result: Low HR No QRS complexes found, no ECG analysis possible Confirmed by Shadi POMPA, Kevyn Feliciano ([id number]) on 07/09/2019 2:32:50 PM
--- NOTE | 2019-07-08 09:32 | DISCHARGE SUMMARY ---
ADMISSION DATE: 06/16/2019 DISCHARGE DATE: 07/07/2019 DISCHARGE DIAGNOSES: 1. Acute on acute on chronic hypoxemic respiratory failure. 2. Septic shock on presentation secondary to healthcare-associated pneumonia complicated with infectious encephalopathy. 3. Acute kidney injury with no recovery. 4. Thrombocytopenia. 5. Hypoglycemia. 6. Fluid overload. 7. Anemia. 8. Constipation. 9. Severe pulmonary hypertension and diastolic dysfunction. 10. History of deep venous thrombosis and pulmonary embolism. 11. Electrolyte imbalance. 12. Hypoalbuminemia. 13. Morbid obesity. PROCEDURES PERFORMED: Ankle x-ray dated 06/15/2019 impression: No evidence of acute bony disease. Chest x-ray dated 06/15/2019 impression: Atelectasis and/or pneumonia in the lingula and left lower lobe. Knee x-ray dated 06/15/2019 impression: Probably disruption of the lateral collateral ligament complex. Elbow x-ray dated 06/15/2019 impression: Soft tissue edema, but no definite acute osseous abnormality. Shoulder x-ray dated 06/15/2019 impression: Degenerative changes, but no definite acute osseous abnormality by plain radiograph. Wrist x-ray dated 06/15/2019 impression: No acute bony injury. Abdomen and pelvis CT scan dated 06/16/2019 impression: Left lower lobe pneumonia, left nephrolithiasis, fecal impaction Echocardiogram dated 06/23/2019 conclusion: Mild aortic valve sclerosis without stenosis, mild tricuspid regurgitation with [id number] pulmonary hypertension by Doppler, mild concentric left ventricular hypertrophy with estimated left ventricular ejection fraction at least 70%, mild elevation in central venous pressure is suggested. Abdomen and pelvis CT scan dated 06/29/2019 impression: Slight increase in indistinct fluid in the right lower quadrant, fatty liver, tiny subcapsular liver fluid collection, stable from prior. This patient also has multiple chest x-rays during the course of her hospitalization. Her last one has been done on 07/02/2019 that showed stable left PICC line, lung volumes are severely low, even more than prior exam. Stable cardiomegaly and pulmonary vascular congestion. Stable consolidation of the left lung base, likely mostly pleural effusion. There is probably a trace right pleural effusion, stable interstitial pulmonary edema. HOSPITAL COURSE: A 73-year-old -[place] female with a past medical history of diabetes, hypertension, hyperlipidemia, obesity, history of pulmonary embolus and DVT, presented to the emergency department after she had a fall. As per the family, she was getting confused and apparently she fell off her bed. She was brought to the emergency department and she had laboratories drawn that showed a low blood sugar. She was treated with D50. The patient at the moment of admission was still somewhat confused. However, she denied any headache, fever, chills, chest pain or shortness of breath per the admitting physician. We did multiple x-rays to rule out any bony abnormality including her wrist, shoulder x-ray, knee x-ray, chest x-ray and ankle x-ray, most of them of the right side, but they did not see any problem except her knee x-ray showed the possibility of disruption of the lateral collateral ligament complex. Also the chest x-ray showed atelectasis and/or pneumonia in the lingula and left lower lobe. The next day, we did a chest, abdomen and pelvis CT scan that basically showed the left lower lobe pneumonia, left nephrolithiasis and fecal impaction. Because we did not have any access and she was in septic shock, she was transferred to the ICU unit and she had a central line placed, which a few days later was removed because it was not functioning well and we put a PICC line. Orthopedic Surgery also evaluated this patient and they recommended to put a knee immobilizer to try to reduce some of her pain. It was very difficult to treat this patient due to her multiple comorbidities. Multiple subspecialties were requested to evaluate this patient including Infectious Disease Department, pulmonary Department and Nephrology Department, Hematology/Oncology Department and, like I mentioned before, also Orthopedic Surgery Department. We will continue with some of her home medications as well as new medications. Antibiotics were managed by Infectious Disease Department, but she started declining slowly. She was not eating right or drinking properly. Due to her septic shock probably and generalized weakness, as per the daughter, she has been a few months basically bed-bound and it was difficult for us to treat her pneumonia and get this patient in a better condition. She started having fluid overload and we tried to remove the fluid, but she started having acute kidney injury and, based on this patient's condition, the possibility of treating her with dialysis is going to be difficult, and that makes her a poor candidate for that. That has been discussed with the family not only by continuous washer operator but also by me. Since this patient was declining and she was not getting better we decided to consult Palliative Care and go ahead and put this patient Do Not Resuscitate and continue with comfort measures only. We guided the family, especially her daughter, in every single step and we discussed the case multiple times, but this patient was not getting better. Today this patient's demise was at 7:40 a.m. She was evaluated by two nurses at that time and she did not have any pulse or respiratory movements. I re-evaluated this patient at 8:15 and I corroborated that information. Unfortunately, no family members were at the bedside, but two of her sitters where with her. The family was notified though. Again, this patient was admitted due to confusion and pneumonia, complicated with septic shock, acute kidney injury with no recovery that made this patient really difficult to treat. On top of that she was morbidly obese and basically bed-bound with generalized weakness. Again this patient's demise was at 7:40 a.m. today 07/07/2019. cc: Maged Huerta MD
== END 2019-07-07 07:40 | disposition expired | DRG 871 ==
LOC: EDIPHOLD 18:33 → ED 18:33 → SUATTDRO 06-16 02:48 → 3N 06-16 12:05 → SUATTDRO 06-16 13:53 → ICU 06-17 09:30 → 4N 06-25 14:09 → ICU 06-28 13:14 → 1N 07-03 02:43
PROVIDERS: ATTEND Internal Medicine